=== PATIENT | female | born 1935 | race Caucasian/White ===

== ENCOUNTER 2019-06-25 04:08 | Observation (INO) ==
[2019-06-25 04:31] LABS: Basophils % 0.5 % (0.1-2.0); Eosinophils # 0.1 K/mm3 (0.0-0.4); Hematocrit 37.8 % (37.0-47.0); Hemoglobin 12.6 g/dL (12.2-16.2); Lymphocytes # 1.2 K/mm3 (0.7-4.5); Lymphocytes % 19.2 % (10-50); Mean Corpuscular HGB Conc 33.3 g/dL (31.8-35.4); Mean Corpuscular Volume 91.9 fl (81-99); Mean Platelet Volume 7.3 fl (7.4-10.4); Monocytes # 0.5 K/mm3 (0.1-1.0); Monocytes % 8.1 % (1.7-9.3); Neutrophils # 4.6 K/mm3 (1.8-7.8); Neutrophils % 71.2 % (37.0-80.0); Platelet Count 364 K/mm3 (142-424); Red Blood Count 4.12 M/mm3 (4.20-5.40); White Blood Count 6.5 K/mm3 (4.8-10.8)
[2019-06-25 04:33] LABS: Chloride 93 mmol/L (98-107)
[2019-06-25 04:34] LABS: Sodium 131 mmol/L (136-145)
[2019-06-25 04:36] LABS: Alanine Aminotransferase 27 U/L (12-78); Alkaline Phosphatase 87 U/L (38-126); Amylase 122 U/L (30-110); Anion Gap 13.1 mEq/L (5-15); Aspartate Amino Transferase 41 U/L (14-36); Bilirubin,Total 0.5 mg/dl (0.2-1.3); Blood Urea Nitrogen 11 mg/dl (7-17); Carbon Dioxide 28 mmol/L (22.0-30.0)
[2019-06-25 04:37] LABS: Albumin Level 4.5 g/dl (3.5-5.0); Albumin/Globulin Ratio 1.5 (1.1-1.8); Calcium 9.3 mg/dl (8.4-10.2); Globulin 3.1 g/dL (1.3-3.2); Glucose 160 mg/dl (74-100); Total Protein,Serum 7.6 g/dl (6.3-8.2)
[2019-06-25 04:40] LABS: Microscopic, Urine URINE MICROSCOPIC (MICROSCOPIC)
[2019-06-25 04:41] LABS: Appearance,Urine CLEAR (Clear); Bilirubin,Urine Negative (Negative); Blood, Urine Negative (Negative); Color,Urine YELLOW (Yellow); Glucose,Urine (UA) Negative (Negative); Ketones,Urine Negative (Negative); Leukocyte Esterase,Urine Negative (Negative); Protein,Urine Negative (Negative); Urobilinogen,Urine 0.2 EU/dl (0.2)
--- NOTE | 2019-06-25 05:10 | Emergency Department Note ---
ED Disposition Clinical Impression: Vertigo, Acute urinary retention Cholelithiasis Qualifiers: Cholelithiasis location: gallbladder Cholecystitis presence: without cho lecystitis Biliary obstruction: without biliary obstruction Qualified Code(s): K80.20 - Calculus of gallbladder without cholecystitis without obstruction Disposition: Admitted as Observation Condition on Discharge: Good Instructions: DI for Diarrhea and Traveler's Diarrhea -- Adult, DI for Diarrhea and Traveler's Diarrhea -- Child, DI for Nausea -- Adult, DI for Nausea -- Child Referrals: Provider,Referral, [Referring] - - Critical Care Critical Care Time: No Attestation: On 06/25/19, the high probability of a clinically significant, sudden or life threatening deterioration of the following system(s) required my full and direct attention, intervention and personal management. The time I documented below is in addition to time spent performing reported procedures but includes the following listed in this critical care notation. Medical Decision Making - Medical Records Medical records reviewed: Yes: I reviewed the patient's medical records. - Andrew Inquiry Pt receiving controlled substance: No Vital Signs: 06/25/19 04:10 06/25/19 06:41 06/25/19 06:58 Temperature 97.4 F L 97.5 F L Temperature Source Oral Oral Pulse Rate [Right Brachial] 69 69 63 Respiratory Rate 16 16 Blood Pressure [Right Arm] 159/75 H 133/68 132/61 Blood Pressure Mean [Right Arm] 103 89 84 Blood Pressure Source [Right Arm] Automatic Cuff Automatic Cuff Blood Pressure Position [Right Arm] Sitting Sitting 02 Sat by Pulse Oximetry 97 96 95 Oxygen Delivery Method Room Air Room Air 06/25/19 07:23 Temperature Temperature Source Pulse Rate [Right Brachial] 73 Respiratory Rate Blood Pressure [Right Arm] 130/67 Blood Pressure Mean [Right Arm] 88 Blood Pressure Source [Right Arm] Blood Pressure Position [Right Arm] 02 Sat by Pulse Oximetry 96 Oxygen Delivery Method - Lab Data Lab results reviewed: Yes: I reviewed the patient's lab results. Lab Results 06/25/19 04:10: WBC 6.5, RBC 4.12 L, Hgb 12.6, Hct 37.8, MCV 91.9, MCH 30.6, MCHC 33.3, RDW 14.0, Plt Count 364, MPV 7.3 L, Neut % (Auto) 71.2, Lymph % (Auto) 19.2, [place] % (Auto) 8.1, Eos % (Auto) 1.0, Baso % (Auto) 0.5, Neut # (Auto) 4.6, Lymph # (Auto) 1.2, [place] # (Auto) 0.5, Eos # (Auto) 0.1, Baso # (Auto) 0.0 06/25/19 04:10: Sodium 131 L, Potassium 3.1 L, Chloride 93 L, Carbon Dioxide 28, Anion Gap 13.1, BUN 11, Creatinine 0.50 L, Estimated Creat Clear 29, Estimated GFR 118, Est GFR ( Amer) 143, Glucose 160 H, Calcium 9.3, Total Bilirubin 0.5, AST 41 H, ALT 27, Alkaline Phosphatase 87, Troponin I < 0.01, Total Protein 7.6, Albumin 4.5, Globulin 3.1, Albumin/Globulin Ratio 1.5, Amylase 122 H, Lipase 132 06/25/19 04:10: Influenza Type A Ag Negative, Influenza Type B Ag Negative 06/25/19 04:34: Urine Color Yellow, Urine Appearance Clear, Urine pH 8.0, Ur Specific [place] 1.020, Urine Protein Negative, Urine Glucose (UA) Negative, Urine Ketones Negative, Urine Blood Negative, Urine Nitrate Negative, Urine Bilirubin Negative, Urine Urobilinogen 0.2, Ur Leukocyte Esterase Negative, Urine WBC Occasional, Ur Squamous Epith Cells 3-5, Urine Bacteria Trace Result diagrams: 06/25/19 04:10 06/25/19 04:10 Orders (Tests/Meds): ED MEDICATIONS Generic Name Dose Route Start Last Admin Trade Name Freq PRN Reason Stop Dose Admin Meclizine HCl 12.5 mg 06/25/19 09:00 Antivert 12.5mg Tablet PO 07/25/19 08:59 TID ANDER Discontinued Medications Generic Name Dose Route Start Last Admin Trade Name Freq PRN Reason Stop Dose Admin Ioversol 75 ml 06/25/19 06:05 06/25/19 06:06 Rad-Optiray 350 100ml Vial IV 06/25/19 06:06 75 ml ONCE ONE Administration Protocol Sodium Chloride 10 ml 06/25/19 06:05 06/25/19 06:06 Rad-Saline Flush 10ml Syringe IV 06/25/19 06:06 10 ml ONCE ONE Administration ORDERS Category Date Time Status Troponin I Q3H Lab 06/25/19 07:30 Ordered Troponin I Q3H Lab 06/25/19 10:30 Ordered - Radiology Data #1 Image(s): Chest Image Reviewed: Yes I reviewed the patient's radiology image Preliminary Findings: Normal/NAD - CT Data CT Scan: Head, Abdomen, Pelvis Time Received: 07:[address] Reviewed: Yes: I have viewed the radiologist's interpretation Preliminary Findings: Abnormal (see report ) - ECG Data Tracing #1 Normal Sinus Rhythm: Yes Ischemic changes: non-specific ST-T wave changes - Physician Consults Physician Consulted: dong Reason -: Admission Dizzy HPI - General Chief Complaint: Nausea/Vomiting/Diarrhea Stated Complaint: vomiting Time Seen by Provider: 06/25/19 04:15 Mode of Arrival: EMS Source of Information: Patient, Spouse, EMS, Medical Record Limitations: No Limitations Description of Symptoms (Recalled from ER Triage Doc. by RN): Patient brought in by [facility]. Patient reports she woke up around 0130 extremely nauseated and dizzy. - History of Present Illness HPI Narrative: wf sent from home per ems with acute onset of dizzyness mary with mov - assoc with n/v but no fever or viral illness - no palpitation or chest pain and no fever/rash or trauma - no focal neuro sx MD complaint: dizziness, difficulty walking Onset (ago): hour(s) Timing: awoke with symptoms Description: lightheadedness, off-balance History of similar episodes: No History of trauma: No Severity: moderate Relieving factors: remaining still Exacerbating factors: movement Associated symptoms: nausea, vomiting - Related Data Home Medications Medication Instructions Recorded Confirmed Amlodipine Besylate [Amlodipine 5 mg PO DAILY 06/25/19 06/25/19 5mg tab] Levothyroxine Sodium 50 mcg PO DAILY 06/25/19 06/25/19 [Levothyroxine 50mcg (0.05mg) Tab] Mirabegron [Myrbetriq] 50 mg PO DAILY 06/25/19 06/25/19 Potassium Chloride [Pot Chlor 10 10 meq PO BID 06/25/19 06/25/19 mEq Tab] Rosuvastatin Calcium 5 mg PO DAILY 06/25/19 06/25/19 Tobramycin/Dexamethasone 2 drp EYE-BOTH DAILY 06/25/19 06/25/19 [Tobramycin-Dexameth Ophth Susp] lisinopriL [Lisinopril 20mg Tab] 20 mg PO DAILY 06/25/19 06/25/19 Allergies Allergy/AdvReac Type Severity Reaction Status Date / Time nitrofurantoin Allergy Verified 06/25/19 04:23 [facility] History - Hepatitis A Screen Drug use history?: No High risk sexual behaviors?: No History of sexually transmitted infection?: No Currently employed?: No Childcare worker?: No Do you have indoor plumbing?: Yes Do you have electricity?: Yes Attestation statement:: This patient has been screened for Hepatitis A risk factors. I have reviewed the patient's past medical history: Yes - Social History Alcohol Intake: never Occupational Status: retired ROS Obtained: Yes All systems reviewed & no additional complaints - Constitutional Constitutional: Denies fever(s) - Eyes Eyes: Denies change in vision - ENT Ears, Nose, Mouth, and Throat: Reports dizziness, Denies sore throat - Cardiovascular Cardiovascular: Denies chest pain, Denies dyspnea - Respiratory Respiratory: No cough - Gastrointestinal Gastrointestingal: Reports: nausea, vomiting. Denies: abdominal pain, diarrhea - Genitourinary Female Genitourinary: Denies hematuria - Musculoskeletal Musculoskeletal: Denies joint swelling - Integumentary/Breasts Skin/Breast: Denies rash - Neurologic Neurologic: Reports dizziness, Denies focal weakness, Denies headache(s), Denies seizure-like activity Physical Exam - General General appearance: alert - Head Head exam: normocephalic - Eye Eye exam: Present: PERRL, EOMI. Absent: scleral icterus, nystagmus - ENT ENT exam: Present: normal oropharynx, mucous membranes dry, other (no evid of tongue biting ) - Neck Neck exam: Present: full ROM, trachea midline, other (sl bruit on lt ) - Respiratory Respiratory exam: Present: normal lung sounds bilaterally. Absent: respiratory distress - Cardiovascular Cardiovascular exam: Present: regular rate, systolic murmur, +S4 - Abdominal Exam Abdominal exam: Present: soft - Extremities Exam Extremities exam: Present: full ROM. Absent: calf tenderness - Neurological Exam Neurological exam: Present: alert, oriented X3, CN II-XII intact, other (dizzyness with mov - unable to ambulate ). Absent: motor sensory deficit - Psychiatric Psychiatric exam: Present: normal affect - Skin Skin exam: Absent: rash
[2019-06-25 05:19] LABS: Bacteria,Urine Trace /lpf; WBC,Urine Occasional #/hpf (0-3)
--- NOTE | 2019-06-25 07:59 | Pharmacy Consult Notes ---
[facility] Pharmacy VTE Monitoring - Patient Demographics Admission date: 06/25/19 Report Date: 06/25/19 Time: 07:59 Allergies/Adverse Reactions: Patient Allergies nitrofurantoin Allergy (Verified 06/25/19 04:23) Height: 1.52 m Weight: 41.73 kg Patient Problems: Current Active Problems Vertigo (Acute) Cholelithiasis (Acute) Acute urinary retention (Acute) - VTE Risk Labs: VTE Related Lab Results Hgb 12.6 g/dL (12.2-16.2) 06/25/19 04:10 Hct 37.8 % (37.0-47.0) 06/25/19 04:10 Plt Count 364 K/mm3 (142-424) 06/25/19 04:10 BUN 11 mg/dl (7-17) 06/25/19 04:10 Creatinine 0.50 mg/dl (0.52-1.04) L 06/25/19 04:10 Estimated Creat Clear 29 mL/min (50-200) 06/25/19 04:10 Clinical Trial Participant: No - Prophylaxis VTE Prophylaxis Ordered?: Yes Types of VTE Prophylaxis: TEDS Knee High
--- NOTE | 2019-06-25 12:27 | History & Physical Report ---
*Admission Date: 06/25/19 *History of present illness: 84 y.o. admitted from ER with c/o dizziness and nausea, some vomiting. Started d uring the night. In ER found to have urinary retention of 1200ml urine. Takes Myrbetriq 25mg. Also found to have hypokalemia of 3.1. Describes dizziness as the room spinning. No real prior history of this. Some hearing deficit. [facility] History Medical History: Reports:: Atrial Fibrillation, Hyperlipidemia, Hypertension Denies:: Anxiety, Arrhythmia, Cerebrovascular Accident, Diabetes Mellitus Type 1, Diabetes Mellitus Type 2 *Have you ever received a pneumonia vaccine?: Yes *Have you received a flu vaccine this season?: Yes Other Medical History: Denies: Thyroid Disease Laterality Cases: Left: Arthroscopy Hip, Right: Total Hip Replacement, Bilatera l: Tonsillectomy Other Surgeries: Yes: Appendectomy, Hysterectomy-Total (bladder suspension. Ovarian cyst 1962) - *Social History Smoking Status: Never smoker Alcohol Intake: never *Occupational Status:: retired Household Members: spouse *Travel in the last 8 weeks: None Family Hx:: Bleeding Disorder (Father and a brother with leukemia. Had 3 brothers.), Coronary Artery Disease (Mother) Review of Systems - Constitutional Denies body ache(s), Denies chills - ENT Reports abnormal hearing, Reports dizziness - *Cardiovascular Denies chest pain - *Respiratory Denies chest congestion, Denies cough - *Gastrointestinal Denies abdominal pain - *Genitourinary Reports urinary incontinence - *Neurologic Reports dizziness, Denies localized weakness, Denies headache(s), Denies seizure-like activity Meds Home Medications Medication Instructions Recorded Confirmed Type Amlodipine Besylate [Amlodipine 7.5 mg PO DAILY 06/25/19 06/25/19 History 5mg tab] Levothyroxine Sodium 50 mcg PO DAILY 06/25/19 06/25/19 History [Levothyroxine 50mcg (0.05mg) Tab] Mirabegron [Myrbetriq] 50 mg PO DAILY 06/25/19 06/25/19 History Potassium Chloride [Pot Chlor 10 10 meq PO BID 06/25/19 06/25/19 History mEq Tab] Rosuvastatin Calcium 5 mg PO DAILY 06/25/19 06/25/19 History Tobramycin/Dexamethasone 2 drp EYE-BOTH DAILY 06/25/19 06/25/19 History [Tobramycin-Dexameth Ophth Susp] lisinopriL [Lisinopril 20mg Tab] 20 mg PO DAILY 06/25/19 06/25/19 History Allergies Allergy/AdvReac Type Severity Reaction Status Date / Time nitrofurantoin Allergy Verified 06/25/19 04:23 Exam Vital signs and Labs for Last 24 Hours: Temp Pulse Resp BP Pulse Ox 97.9 F 79 18 155/72 H 97 06/25/19 08:25 06/25/19 08:25 06/25/19 08:25 06/25/19 08:25 06/25/19 08:25 Laboratory Results - last 24 hr 06/25/19 04:10: WBC 6.5, RBC 4.12 L, Hgb 12.6, Hct 37.8, MCV 91.9, MCH 30.6, MCHC 33.3, RDW 14.0, Plt Count 364, MPV 7.3 L, Neut % (Auto) 71.2, Lymph % (Auto) 19.2, [place] % (Auto) 8.1, Eos % (Auto) 1.0, Baso % (Auto) 0.5, Neut # (Auto) 4.6, Lymph # (Auto) 1.2, [place] # (Auto) 0.5, Eos # (Auto) 0.1, Baso # (Auto) 0.0 06/25/19 04:10: Sodium 131 L, Potassium 3.1 L, Chloride 93 L, Carbon Dioxide 28, Anion Gap 13.1, BUN 11, Creatinine 0.50 L, Estimated Creat Clear 29, Estimated GFR 118, Est GFR ( Amer) 143, Glucose 160 H, Calcium 9.3, Total Bilirubin 0.5, AST 41 H, ALT 27, Alkaline Phosphatase 87, Troponin I < 0.01, Total Protein 7.6, Albumin 4.5, Globulin 3.1, Albumin/Globulin Ratio 1.5, Amylase 122 H, Lipase 132 06/25/19 04:10: Influenza Type A Ag Negative, Influenza Type B Ag Negative 06/25/19 04:34: Urine Color Yellow, Urine Appearance Clear, Urine pH 8.0, Ur Specific [place] 1.020, Urine Protein Negative, Urine Glucose (UA) Negative, Ur ine Ketones Negative, Urine Blood Negative, Urine Nitrate Negative, Urine Bilirubin Negative, Urine Urobilinogen 0.2, Ur Leukocyte Esterase Negative, Urine WBC Occasional, Ur Squamous Epith Cells 3-5, Urine Bacteria Trace 06/25/19 08:40: Troponin I < 0.01 06/25/19 10:38: Troponin I < 0.01 I & O for Last 24 hours: Intake & Output 06/23/19 06/24/19 06/25/19 06/26/19 11:59 11:59 11:59 11:59 Intake Total 0 / 0 Output Total 1200 / 1200 Balance -1200 / -1200 Weight 89 lb 5 oz - Constitutional no acute distress - *Routine HEENT Exam Head: Present: normocephalic Eye: Present: nystagmus (with position change) ENT: Present: mucous membranes moist - *Routine Neck Exam Present: supple. Absent: carotid bruit - *Routine Respiratory Exam Present: CTA bilaterally (few fibrotic rales) - *Routine Cardiovascular Exam Present: RRR - *Routine Abdominal Exam Present: soft. Absent: tenderness - *Routine Extremities Exam Absent: edema - *Routine Neurological Exam Present: alert, oriented X3 Assessment and Plan (1) Vertigo Current visit: Yes Status: Acute Category: Medical Code(s): R42 - Dizzi ness and giddiness (2) Acute urinary retention Current visit: Yes Status: Acute Category: Medical Code(s): R33.8 - Other retention of urine (3) Hypokalemia Current visit: Yes Status: Acute Category: Medical Code(s): E87.6 - Hypokalemia (4) Cholelithiasis Current visit: Yes Status: Acute Qualifiers: Cholelithiasis location: gallbladder Cholecystitis presence: without cholecystitis Biliary obstruction: without biliary obstruction Qualified Code(s): K80.20 - Calculus of gallbladder without cholecystitis without obstruction Category: Medical Code(s): K80.20 - Calculus of gallbladder without cholecystitis without obstruction - Assessment and plan all Dx Assessment and Plan for all problems:: Zuleyka maneuver performed this AM in the patient's room. Nystagmus elicited. Will Rx potassium. Catheter was not left in place. Will need to make sure no continued retention. Receiving Meclizine.
--- NOTE | 2019-06-26 07:34 | Electrocardiograph Report ---
APPROVED REPORT Exam: Resting ECG HR:69 bpm ECG Measurements Heart Rate 69 AXES ID 178 P 90 QRSd 72 QRS 78 QT 418 T85 QTc 447 <Conclusion> Normal sinus rhythm Normal ECG Electronically signed by : Sina Li, 06/26/2019 07:34:18
[2019-06-26 07:49] LABS: Basophils % 0.4 % (0.1-2.0); Eosinophils # 0.1 K/mm3 (0.0-0.4); Eosinophils % 0.5 % (0.1-12.0); Hematocrit 39.4 % (37.0-47.0); Hemoglobin 12.8 g/dL (12.2-16.2); Lymphocytes # 1.7 K/mm3 (0.7-4.5); Lymphocytes % 17.8 % (10-50); Mean Corpuscular HGB Conc 32.4 g/dL (31.8-35.4); Mean Corpuscular Volume 94.2 fl (81-99); Mean Platelet Volume 7.6 fl (7.4-10.4); Monocytes # 0.7 K/mm3 (0.1-1.0); Monocytes % 7.6 % (1.7-9.3); Neutrophils # 7.1 K/mm3 (1.8-7.8); Neutrophils % 73.7 % (37.0-80.0); Platelet Count 376 K/mm3 (142-424); Red Blood Count 4.18 M/mm3 (4.20-5.40); Red Cell Distribution Width 14.2 % (11.5-17.5); White Blood Count 9.6 K/mm3 (4.8-10.8)
[2019-06-26 08:02] LABS: Anion Gap 12.3 mEq/L (5-15); Calcium 9.4 mg/dl (8.4-10.2)
--- NOTE | 2019-06-26 09:41 | Progress Note ---
Internal Medicine - PN: Subj *Date: 06/26/19 *Time: 09:40 Interval history: She reports that she may still have episodes of dizziness. Her leg cramps have resolved with her improved potassium. See labs. Exam Vital signs and Labs for Last 24 Hours: Temp Pulse Resp BP Pulse Ox 97.9 F 78 17 110/55 L 96 06/26/19 08:00 06/26/19 08:00 06/26/19 08:00 06/26/19 08:00 06/26/19 08:00 Laboratory Results - last 24 hr 06/25/19 10:38: Troponin I < 0.01 06/26/19 07:30: WBC 9.6 D, RBC 4.18 L, Hgb 12.8, Hct 39.4, MCV 94.2, MCH 30.5, MCHC 32.4, RDW 14.2, Plt Count 376, MPV 7.6, Neut % (Auto) 73.7, Lymph % (Auto) 17.8, [place] % (Auto) 7.6, Eos % (Auto) 0.5, Baso % (Auto) 0.4, Neut # (Auto) 7.1, Lymph # (Auto) 1.7, [place] # (Auto) 0.7, Eos # (Auto) 0.1, Baso # (Auto) 0.0 06/26/19 07:30: Sodium 133 L, Potassium 4.3 D, Chloride 100, Carbon Dioxide 25, Anion Gap 12.3, BUN 8 D, Creatinine 0.60, Estimated Creat Clear 28, Estimated GFR 96, Est GFR ( Amer) 116, Glucose 102 H, Calcium 9.4, Magnesium 1.9 I & O for Last 24 hours: Intake & Output 06/23/19 06/24/19 06/25/19 06/26/19 11:59 11:59 11:59 11:59 Intake Total 0 / 0 1253 / 1253 Output Total 1200 / 1200 1320 / 1320 Balance -1200 / -1200 -67 / -67 Weight 89 lb 5 oz 89 lb 2 oz - Constitutional no acute distress - *Routine HEENT Exam Eye: Present: PERRL. Absent: nystagmus ENT: Present: mucous membranes moist - *Routine Neck Exam Absent: carotid bruit - *Routine Respiratory Exam Present: CTA bilaterally - *Routine Cardiovascular Exam Present: RRR - *Routine Abdominal Exam Present: soft. Absent: tenderness - *Routine Extremities Exam Absent: edema Assessment and Plan (1) Vertigo Current visit: Yes Status: Acute Category: Medical Code(s): R42 - Dizziness and giddiness (2) Acute urinary retention Current visit: Yes Status: Acute Category: Medical Code(s): R33.8 - Other retention of urine (3) Hypokalemia Current visit: Yes Status: Acute Category: Medical Code(s): E87.6 - Hypokalemia (4) Cholelithiasis Current visit: Yes Status: Acute Qualifiers: Cholelithiasis location: gallbladder Cholecystitis presence: without cholecystitis Biliary obstruction: without biliary obstruction Qualified Code(s): K80.20 - Calculus of gallbladder without cholecystitis without obstruction Category: Medical Code(s): K80.20 - Calculus of gallbladder without cholecystitis without obstruction - Assessment and plan all Dx Assessment and Plan for all problems:: Carotid ultrasound will be obtained. We have not checked TSH yet.
[2019-06-27 08:08] LABS: Anion Gap 13.1 mEq/L (5-15); Calcium 9.2 mg/dl (8.4-10.2)
[2019-06-27 11:49] VITALS: BP 135/63
--- NOTE | 2019-06-27 12:57 | Progress Note ---
Internal Medicine - PN: Subj *Date: 06/27/19 *Time: 12:54 Interval history: She is well, not dizzy, but feels uncertain about going home. Exam Vital signs and Labs for Last 24 Hours: Temp Pulse Resp BP Pulse Ox 97.7 F 86 16 135/63 95 06/27/19 11:43 06/27/19 11:43 06/27/19 11:43 06/27/19 11:43 06/27/19 11:43 Laboratory Results - last 24 hr 06/27/19 07:50: Sodium 134 L, Potassium 4.1, Chloride 99, Carbon Dioxide 26, Anion Gap 13.1, BUN 8, Creatinine 0.50 L, Estimated Creat Clear 28, Estimated GFR 118, Est GFR ( Amer) 143 D, Glucose 104 H, Calcium 9.2 I & O for Last 24 hours: Intake & Output 06/25/19 06/26/19 06/27/19 06/28/19 11:59 11:59 11:59 11:59 Intake Total 0 / 0 1253 / 1253 1730 / 1730 Output Total 1200 / 1200 2220 / 2220 1300 / 1300 Balance -1200 / -1200 -967 / -967 430 / 430 Weight 89 lb 5 oz 89 lb 2 oz 89 lb 5 oz - Constitutional no acute distress - *Routine HEENT Exam Eye: Present: PERRL. Absent: nystagmus ENT: Present: mucous membranes moist - *Routine Respiratory Exam Present: CTA bilaterally - *Routine Cardiovascular Exam Present: RRR - *Routine Abdominal Exam Present: soft. Absent: tenderness - *Routine Extremities Exam Present: extremity cold to touch. Absent: edema Assessment and Plan (1) Vertigo Current visit: Yes Status: Acute Category: Medical Code(s): R42 - Dizziness and giddiness (2) Acute urinary retention Current visit: Yes Status: Acute Category: Medical Code(s): R33.8 - Other retention of urine (3) Hypokalemia Current visit: Yes Status: Acute Category: Medical Code(s): E87.6 - Hypokalemia (4) Cholelithiasis Current visit: Yes Status: Acute Qualifiers: Cholelithiasis location: gallbladder Cholecystitis presence: without cholecystitis Biliary obstruction: without biliary obstruction Qualified Code(s): K80.20 - Calculus of gallbladder without cholecystitis without obstruction Category: Medical Code(s): K80.20 - Calculus of gallbladder without cholecystitis without obstruction - Assessment and plan all Dx Assessment and Plan for all problems:: Will discharge. Home Health visits will be arranged.
--- NOTE | 2019-06-27 16:39 | Cardiology Report ---
APPROVED REPORT Medical Appointment Clerk: Meredith Vázquez RVT Laterality: Bilateral Study Quality: Good Indications: dizziness Risk Factors Hypertension: Doppler Spectral Velocity Analysis ECA (R) 62.90/0.50 cm/sECA (L) 59.50/0.40 cm/s dICA (R) 85.90/16.00 cm/sdICA (L) 64.70/12.40 cm/s Nori (R) 83.50/11.60 cm/smICA (L) 58.30/9.60 cm/s pICA (R) 50.10/9.00 cm/spICA (L) 35.10/6.20 cm/s dCCA (R) 74.60/8.00 cm/sdCCA (L) 64.90/8.40 cm/s pCCA (R) 95.90/8.60 cm/spCCA (L) 67.20/7.30 cm/s Vert (R) 42.50/5.00 cm/sVert (L) 39.90/4.00 cm/s ICA/CCA 1.15 ICA/CCA 1.00 Conclusion Study suggests 20-49% stenosis of the right internal cartoid artery. Study suggests less than 20% stenosis of the left internal cartoid artery. Antegrade flow seen bilateral vertebral arteries. Electronically signed by : Gurdeep Monsalve MD 06/26/2019 16:54:50
--- NOTE | 2019-06-29 22:12 | Discharge Summary ---
General - General Admission date:: 06/25/19 Discharge date: 06/27/19 HPI HPI: 84 y.o. admitted from ER with c/o dizziness and nausea, some vomiting. Started during the night. In ER found to have urinary retention of 1200ml urine. Takes Myrbetriq 25mg. Also found to have hypokalemia of 3.1. Describes dizziness as the room spinning. No real prior history of this. Some hearing deficit. Hospital Course Hospital Course: The patient had an abdominal and pelvic CT showing a distended gallbladder with cholelithiasis and a distended urinary bladder with mild ectasias of the renal collecting system. It also showed some constipation. She had a chest x-ray showing nothing acute. She had a head CT showing nothing acute. 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 The patient was admitted and Zuleyka's maneuver was performed in the patient's room. Nystagmus was elicited. Patient was started on some meclizine for the vertigo and also potassium due to hypokalemia. The patient had a catheter placed in the emergency room with good urinary output, but it was not left in place. She was monitored for continued renal urinary retention. She had a carotid duplex showing 20 to 49% stenosis on the right and 20% stenosis on the left. Her leg cramps did resolve as potassium improved. She still had some episodes of dizziness. Her dizziness finally resolved and she was stable to be discharged home with home health. Objective Vital signs: Temp Pulse Resp BP Pulse Ox 97.7 F 86 16 135/63 95 06/27/19 11:43 06/27/19 11:43 06/27/19 11:43 06/27/19 11:43 06/27/19 11:43 Narrative: - Constitutional no acute distress - *Routine HEENT Exam Head: Present: normocephalic Eye: Present: nystagmus (with position change) ENT: Present: mucous membranes moist - *Routine Neck Exam Present: supple. Absent: carotid bruit - *Routine Respiratory Exam Present: CTA bilaterally (few fibrotic rales) - *Routine Cardiovascular Exam Present: RRR - *Routine Abdominal Exam Present: soft. Absent: tenderness - *Routine Extremities Exam Absent: edema - *Routine Neurological Exam Present: alert, oriented X3 DS: Diagnosis - Discharge Diagnosis (1) Vertigo Status: Acute (2) Acute urinary retention Status: Acute (3) Hypokalemia Status: Acute (4) Cholelithiasis Status: Acute Discharge Plan - Patient Discharge Instructions Patient Instructions: Vertigo, Gallstones, DI for Gallstones, DI for Vertigo, DI for Hypokalemia, DI for Urinary Retention in Women, Hypokalemia - Follow up Plan Disposition: Home Health Service Home Medications: Home Medications Medication Instructions Recorded Confirmed Type Levothyroxine Sodium 50 mcg PO DAILY 06/25/19 06/25/19 History [Levothyroxine 50mcg (0.05mg) Tab] Mirabegron [Myrbetriq] 50 mg PO DAILY 06/25/19 06/25/19 History Potassium Chloride [Pot Chlor 10 10 meq PO BID 06/25/19 06/25/19 History mEq Tab] Rosuvastatin Calcium 5 mg PO DAILY 06/25/19 06/25/19 History Tobramycin/Dexamethasone 2 drp EYE-BOTH DAILY 06/25/19 06/25/19 History [Tobramycin-Dexameth Ophth Susp] lisinopriL [Lisinopril 20mg Tab] 20 mg PO DAILY 06/25/19 06/25/19 History Amlodipine Besylate [Norvasc 2.5mg 2.5 mg PO DAILY #30 tab 06/27/19 Rx tablet] Meclizine HCl [Antivert 12.5mg 12.5 mg PO TID #90 tab 06/27/19 Rx tablet] Prescriptions/Medication Reconciliation: New Meclizine HCl [Antivert 12.5mg tablet] 12.5 mg PO TID #90 tab Amlodipine Besylate [Norvasc 2.5mg tablet] 2.5 mg PO DAILY #30 tab Continued Tobramycin/Dexamethasone [Tobramycin-Dexameth Ophth Susp] 2 drp EYE-BOTH DAILY Potassium Chloride [Pot Chlor 10 mEq Tab] 10 meq PO BID Mirabegron [Myrbetriq] 50 mg PO DAILY Levothyroxine Sodium [Levothyroxine 50mcg (0.05mg) Tab] 50 mcg PO DAILY Rosuvastatin Calcium 5 mg PO DAILY lisinopriL [Lisinopril 20mg Tab] 20 mg PO DAILY Discontinued Amlodipine Besylate [Amlodipine 5mg tab] 7.5 mg PO DAILY - Problem Reconciliation Problems Reviewed?: Yes
== END 2019-06-27 14:28 | disposition home health service (06) ==
LOC: ER 04:08 → 2ND 04:08
PROVIDERS: ADMIT Family Medicine; ATTEND Family Medicine
CPT/HCPCS: 36415; 70450; 71010; 71045; 74177; 80048; 80053; 81001; 82150; 83690; 83735; 84443; 84484; 85025; 87275; 87276; 93005; 93880; 97161; 99285; G0378; J2405; Q9967

== ENCOUNTER 2020-11-25 07:33 | Emergency (ER) | payer MEDICARE, SELFPAY ==
[2020-11-25 07:33] VITALS: BP 171/87; PULSE 89; RESP 16; TEMP 36.7; O2SAT 98; BMI 18.3
--- NOTE | 2020-11-25 07:54 | XR_ITS ---
PROCEDURE: XR HIP LT 2-3V W/PELVIS CLINICAL INDICATION: Fall/ Hip Pain COMPARISON: No exams were available for comparison FINDINGS: Status post left hip bipolar prosthesis placement. No acute fracture or dislocation. The prosthesis is in good position. IMPRESSION: No acute findings. Dictated by: Gurdeep Monsalve MD 11/25/2020 08:39 Gurdeep Monsalve MD in [place] 11/25/2020 08:39
--- NOTE | 2020-11-25 07:54 | CT_ITS ---
PROCEDURE: CT LUMBAR SPINE WO CON CLINICAL HISTORY: fall, lower back pain COMPARISON: No exams were available for comparison TECHNIQUE: Axial images obtained with sagittal and coronal reformats. All CT scans at the facility use one or more dose reduction, viz: automated exposure control, ma/kV adjustment per patient size (including targeted exams where dose is matched to indication, i.e. head), or iterative reconstruction technique. FINDINGS: There is generalized osteopenia. There is normal alignment. No acute fracture or dislocation is apparent. There is mild lumbar curvature convex right minimal bulging disc is present at L5-S1 with facet hypertrophic changes. Ligamentum flavum calcification noted at L3-L4. IMPRESSION: No acute finding Dictated by: Gurdeep Monsalve MD 11/25/2020 08:37 Gurdeep Monsalve MD in [place] 11/25/2020 08:37
[2020-11-25 08:00] VITALS: BP 155/76; PULSE 87; O2SAT 96
--- NOTE | 2020-11-25 08:06 | XR_ITS ---
PROCEDURE: XR HIP RT 2-3V W/PELVIS CLINICAL INDICATION: PAIN COMPARISON: No exams were available for comparison FINDINGS: Prior right hip pinning with [address] extending from the base of the greater trochanter to the femoral head region. No acute fracture or dislocation apparent. IMPRESSION: No acute findings. Dictated by: Gurdeep Monsalve MD 11/25/2020 08:38 Gurdeep Monsalve MD in [place] 11/25/2020 08:38
--- NOTE | 2020-11-25 08:07 | PC.NURSE ---
SYLVIE HICKS at
--- NOTE | 2020-11-25 08:08 | PC.NURSE ---
amna notified of orders on pt, spoke with shamir
--- NOTE | 2020-11-25 08:14 | HMH.EDFALL ---
ED Disposition Clinical Impression: Low back pain Qualifiers: Chronicity: acute Back pain laterality: bilateral Sciatica presence: without sciatica Qualified Code(s): M54.5 - Low back pain Fall Qualifiers: Encounter type: initial encounter Qualified Code(s): W19.XXXA - Unspecified fall, initial encounter Disposition: Home, Self-Care Condition on Discharge: Good Instructions: DI for Musculoskeletal Pain Referrals: Cassandra Lara [Primary Care Provider] - 11/26/20 - Critical Care Critical Care Time: No Attestation: On 11/25/20, the high probability of a clinically significant, sudden or life threatening deterioration of the following system(s) required my full and direct attention, intervention and personal management. The time I documented below is in addition to time spent performing reported procedures but includes the following listed in this critical care notation. Medical Decision Making - Medical Records Medical records reviewed: Yes: I reviewed the patient's medical records. - Andrew Inquiry Pt receiving controlled substance: No Vital Signs: 11/25/20 07:33 11/25/20 08:00 Temperature 98.0 F Temperature Source Oral Pulse Rate 87 Pulse Rate [Right] 89 Respiratory Rate 16 Blood Pressure 155/76 H Blood Pressure [Right Arm] 171/87 H Blood Pressure Mean 103 Blood Pressure Mean [Right Arm] 115 02 Sat by Pulse Oximetry 98 96 Oxygen Delivery Method Room Air Room Air - Radiology Data #1 Image(s): Hip Image Reviewed: Yes I reviewed the patient's radiology results Bilateral hip x-ray show no acute fracture or dislocation - CT Data CT Scan: L-Spine Time Received: 08:[address] Reviewed: Yes: I have reviewed the patient's CT results Medical Decision Narrative: Patient with fall earlier in the week and fall apparently last night that sounds mechanical in nature. Patient denies any other associated symptoms. Bilateral hip films and CT of the lumbar spine showed no acute fracture dislocation. Given Toradol here and discharged home with advised to follow-up with PCP for further management in the next 1-2 days. Physical therapy may be beneficial. Tylenol for pain control. Fall HPI - General Chief Complaint: Fall Stated Complaint: Fall, Hip pain Time Seen by Provider: 11/25/20 08:14 Mode of Arrival: EMS Limitations: No Limitations Description of Symptoms (Recalled from ER Triage Doc. by RN): EMS reports they were called out due to bilateral hip pain. EMS reports they picked patient up off the floor at 0300 this AM after a fall w/o LOC and at the time patient refused EMS transport to hospital. Patient called EMS back due to worsening bilateral hip pain and lower back pain. Patient denies hitting head, patient denies neck pain. - History of Present Illness HPI Narrative: This is an 85-year-old female with a past medical history significant for hypertension, atrial fibrillation, hyperlipidemia who presents to the emergency department for evaluation of lower back pain after a fall at 3 AM. Patient states that she states her feet got in the way . She also reports a fall about 4 days ago earlier in the week for the same problem. No associated chest pain, shortness of breath, dizziness and she has no subsequent lateralizing motor or sensory changes. Pain in the lower back is constant, does not seem to change with movement. She denies hitting her head, no neck pain. She does not take any blood thinners. She has been trying Tylenol with no persistent relief of symptoms. - Related Data Home Medications Medication Instructions Recorded Confirmed Levothyroxine Sodium 50 mcg PO DAILY 06/25/19 06/25/19 [Levothyroxine 50mcg (0.05mg) Tab] Mirabegron [Myrbetriq] 50 mg PO DAILY 06/25/19 06/25/19 Potassium Chloride [Pot Chlor 10 10 meq PO BID 06/25/19 06/25/19 mEq Tab] Rosuvastatin Calcium 5 mg PO DAILY 06/25/19 06/25/19 Tobramycin/Dexamethasone 2 drp EYE-BOTH DAILY 06/25/19 06/25/19 [To
--- NOTE | 2020-11-25 08:33 | PC.NURSE ---
pt return from rad
[2020-11-25 08:56] VITALS: BP 131/59; PULSE 85; RESP 16; O2SAT 94
[2020-11-25 09:00] VITALS: BP 137/69; PULSE 88; RESP 18; O2SAT 96
--- NOTE | 2020-11-25 09:00 | PC.NURSE ---
Caalled Daughter about patient to be discharged, no answer, left voicemail to call ER
--- NOTE | 2020-11-25 09:08 | PC.NURSE ---
called advised of pt discharge and said he would be here as soon as possible.
[2020-11-25 09:30] VITALS: BP 127/64; PULSE 84; RESP 18; O2SAT 94
[2020-11-25 10:13] VITALS: BP 127/54; PULSE 84; RESP 18; TEMP 36.8; O2SAT 96
== END 2020-11-25 09:57 | disposition home or self-care (01) ==
PROVIDERS: Emergency Provider Emergency Medicine; PCP Family Medicine
DX: M54.5 Low back pain (principal); M25.551 Pain in right hip; M25.552 Pain in left hip; I48.20 Chronic atrial fibrillation, unspecified; I10 Essential (primary) hypertension; E78.5 Hyperlipidemia, unspecified; Z79.899 Other long term (current) drug therapy; W01.0XXA Fall on same level from slipping, tripping and stumbling without subsequent striking against object, initial encounter; Y92.019 Unspecified place in single-family (private) house as the place of occurrence of the external cause
CPT/HCPCS: 72131; 73502; 99282

== ENCOUNTER 2020-11-26 16:10 | Inpatient (IN) | payer MEDICARE, SELFPAY ==
[2020-11-26 16:11] VITALS: BP 174/92; PULSE 95; RESP 18; TEMP 36.7; O2SAT 93; BMI 17.6
--- NOTE | 2020-11-26 16:31 | HMH.EDGENADL ---
ED Disposition Clinical Impression: Hyponatremia Disposition: Admitted as Observation Condition on Discharge: Good - Critical Care Critical Care Time: No Attestation: On 11/26/20, the high probability of a clinically significant, sudden or life threatening deterioration of the following system(s) required my full and direct attention, intervention and personal management. The time I documented below is in addition to time spent performing reported procedures but includes the following listed in this critical care notation. Medical Decision Making - Medical Records Medical records reviewed: Yes: I reviewed the patient's medical records. - Andrew Inquiry Pt receiving controlled substance: No Vital Signs: 11/26/20 16:11 Temperature 98.0 F Temperature Source Oral Pulse Rate [Right Radial] 95 H Respiratory Rate 18 Blood Pressure [Right Arm] 174/92 H Blood Pressure Mean [Right Arm] 119 Blood Pressure Source [Right Arm] Automatic Cuff Blood Pressure Position [Right Arm] Supine 02 Sat by Pulse Oximetry 93 L Oxygen Delivery Method Room Air - Lab Data Lab Results 11/26/20 18:00: WBC 8.7, RBC 3.56 L, Hgb 10.2 L, Hct 30.2 L, MCV 84.7, MCH 28.7, MCHC 33.9, RDW 15.3, Plt Count 368, MPV 8.4, Neut % (Auto) 89.9 H, Lymph % (Auto) 4.3 L, [place] % (Auto) 5.6, Eos % (Auto) 0.1, Baso % (Auto) 0.2, Neut # (Auto) 7.9 H, Lymph # (Auto) 0.4 L, [place] # (Auto) 0.5, Eos # (Auto) 0.0, Baso # (Auto) 0.0 11/26/20 18:00: Sodium 125 L, Potassium 3.1 L, Chloride 91 L, Carbon Dioxide 24, Anion Gap 13.1, BUN 12, Creatinine 0.40 L, Estimated Creat Clear 27, Estimated GFR 152, Est GFR ( Amer) 184, Glucose 104 H, Calcium 7.8 L, Magnesium 1.5 L, TSH 1.69 Result diagrams: 11/26/20 18:00 11/26/20 18:00 Orders (Tests/Meds): ED MEDICATIONS Generic Name Dose Route Start Last Admin Trade Name Freq PRN Reason Stop Dose Admin Acetaminophen 650 mg 11/26/20 18:53 Acetaminophen 325mg Tab PO 12/26/20 18:52 Q4HP PRN Fever or Mild Pain Sodium Chloride 1,000 mls @ 125 mls/hr 11/26/20 18:45 11/26/20 18:48 Sod Chlor 0.9% 1000ml Bag IV 12/26/20 18:44 125 mls/hr .Q8H ANDER Administration Potassium Chloride/Water 100 mls @ 100 mls/hr 11/26/20 18:41 Potassium Chloride 10meq/100ml Ivpb IV 11/26/20 19:40 ONCE ONE Metronidazole 500 mg in 100 mls @ 100 mls/hr 11/26/20 18:56 Flagyl 500mg/100ml Ivpb IV 11/26/20 19:55 ONCE ONE Ondansetron HCl 4 mg 11/26/20 18:53 Ondansetron 4mg/2ml Vial IV 12/26/20 18:52 Q8HP PRN Nausea Pantoprazole Sodium 40 mg 11/27/20 09:00 Pantoprazole 40mg Tablet PO 12/27/20 08:59 DAILY ANDER Discontinued Medications Generic Name Dose Route Start Last Admin Trade Name Freq PRN Reason Stop Dose Admin Fentanyl Citrate 50 mcg 11/26/20 17:26 11/26/20 17:49 Fentanyl 100mcg/2ml Vial IV 11/26/20 17:27 50 mcg ONCE ONE Administration Magnesium Sulfate 1 gm/ Sodium 52 mls @ 100 mls/hr 11/26/20 18:41 11/26/20 18:48 Chloride IV 11/26/20 19:12 100 mls/hr ONCE ONE Administration ORDERS Category Date Time Status Complete Blood Count Auto Diff AMLAB Lab 11/27/20 06:00 Ordered Complete Blood Count Auto Diff Stat Lab 11/26/20 18:00 Results Comprehensive Metabolic Panel AMLAB Lab 11/27/20 06:00 Ordered Diarrhea 23 Panel, PCR Stat Lab 11/26/20 18:57 Ordered Lipid Panel AMLAB Lab 11/27/20 06:00 Ordered Magnesium AMLAB Lab 11/27/20 06:00 Ordered Phosphorous AMLAB Lab 11/27/20 06:00 Ordered Rapid PCR Covid and Flu A/B Stat Lab 11/26/20 19:00 Received Medical Decision Narrative: 85-year-old female presents after fall as above. She is awake and alert at this time without findings on primary survey. She does have skin tears however no evidence of fractures. Plan to obtain laboratory evaluation it appears to be a mechanical fall however will assess for metabolic conditions as well. Patient has hyponatremia hypokalemia hyp
--- NOTE | 2020-11-26 16:35 | XR_ITS ---
PROCEDURE: XR PELVIS 1-2V CLINICAL INDICATION: trauma fall from standing COMPARISON: CR XR HIP LT 2-3V W/PELVIS from 11/25/2020 TECHNIQUE: XR Pelvis AP View FINDINGS: Status post right hip pinning. Left hip bipolar prosthesis present. No acute fracture or dislocation. No lytic or blastic change. IMPRESSION: No acute findings. Dictated by: Gurdeep Monsalve MD 11/26/2020 16:57 Gurdeep Monsalve MD in [place] 11/26/2020 16:57
--- NOTE | 2020-11-26 16:35 | XR_ITS ---
PROCEDURE: XR CHEST PORTABLE CLINICAL HISTORY: trauma fall from standing COMPARISON: CR XR CHEST PORTABLE from 06/25/2019 FINDINGS: The cardiomediastinal silhouette and pulmonary vascularity are within normal limits. The lungs are clear without infiltrates, suspicious nodules, or pleural effusions. No acute bony abnormalities. IMPRESSION: No acute findings. Dictated by: Gurdeep Monsalve MD 11/26/2020 16:56 Gurdeep Monsalve MD in [place] 11/26/2020 16:56
[2020-11-26 18:13] LABS: Basophils % 0.2 % (0.1-2.0); Eosinophils % 0.1 % (0.1-12.0); Hematocrit 30.2 % (37.0-47.0); Hemoglobin 10.2 g/dL (12.2-16.2); Lymphocytes # 0.4 K/mm3 (0.7-4.5); Lymphocytes % 4.3 % (10-50); Mean Corpuscular HGB Conc 33.9 g/dL (31.8-35.4); Mean Corpuscular Hemoglobin 28.7 pg (27.0-31.2); Mean Corpuscular Volume 84.7 fl (81-99); Mean Platelet Volume 8.4 fl (7.4-10.4); Monocytes # 0.5 K/mm3 (0.1-1.0); Monocytes % 5.6 % (1.7-9.3); Neutrophils # 7.9 K/mm3 (1.8-7.8); Neutrophils % 89.9 % (37.0-80.0); Platelet Count 368 K/mm3 (142-424); Red Blood Count 3.56 M/mm3 (4.20-5.40); Red Cell Distribution Width 15.3 % (11.5-17.5); White Blood Count 8.7 K/mm3 (4.8-10.8)
[2020-11-26 18:22] LABS: Anion Gap 13.1 mEq/L (5-15); Blood Urea Nitrogen 12 mg/dl (7-17); Calcium 7.8 mg/dl (8.4-10.2); Carbon Dioxide 24 mmol/L (22.0-30.0); Chloride 91 mmol/L (98-107); Creatinine Clearance Estimated 27 mL/min (50-200); Estimated Glomerular Filt Rate 152 ml/min (>60); GFR (African American) 184 ML/MIN (>60); Glucose 104 mg/dl (74-100); Magnesium 1.5 mg/dl (1.6-2.3); Potassium 3.1 mmoL/L (3.5-5.1); Sodium 125 mmol/L (136-145)
[2020-11-26 18:24] LABS: MANUAL DIFFERENTIAL MANUAL DIFFERENTIAL (MANUAL DIFF)
--- NOTE | 2020-11-26 18:37 | ECG_ITS ---
APPROVED REPORT Exam: Resting ECG HR:87 bpm ECG Measurements Heart Rate 87 AXES MN 150 P 82 QRSd 50 QRS 61 QT 356 T 77 QTc 428 Conclusion Normal sinus rhythm Low voltage QRS Septal infarct, age undetermined Abnormal ECG Electronically signed by : Sina Li MD 11/28/2020 09:01:53
[2020-11-26 18:53] LABS: Thyroid Stimulating Hormone 1.69 uIU/mL (0.465-4.68)
--- NOTE | 2020-11-26 18:54 | PC.NURSE ---
spoke with Dr Pablo who agreed to admission
[2020-11-26 19:00] VITALS: BP 144/72; PULSE 87; O2SAT 93
[2020-11-26 19:06] LABS: Influenza A, PCR Not Detected (NotDetected); Influenza B, PCR Not Detected (NotDetected)
[2020-11-26 19:19] LABS: Eosinophils % 1 % (0-3); Lymphocytes % 5 % (10-50); Monocytes % 2 % (2-9); Neutrophils % 90 % (42-76); Total Cells Counted 100
[2020-11-26 19:20] LABS: Hypersegmented Neutrophils 1+; Platelet Estimate Normal
[2020-11-26 20:00] VITALS: BP 160/79; PULSE 87; RESP 17; O2SAT 96
[2020-11-26 20:04] VITALS: BMI 17.6
[2020-11-26 20:07] LABS: Coronavirus 19, PCR Detected (NotDetected)
[2020-11-26 21:00] VITALS: BP 149/97; PULSE 85; RESP 16; TEMP 36.9; O2SAT 94
[2020-11-26 21:45] VITALS: BP 158/66; PULSE 66; RESP 18; TEMP 36.7; O2SAT 98
--- NOTE | 2020-11-26 22:02 | PC.NURSE ---
patient arrived to unit [id number]
[2020-11-26 22:31] LABS: Appearance,Urine CLEAR (Clear); Bilirubin,Urine Negative (Negative); Blood, Urine 1+ (Negative); Color,Urine YELLOW (Yellow); Glucose,Urine (UA) Negative (Negative); Ketones,Urine 1+ (Negative); Leukocyte Esterase,Urine Negative (Negative); Microscopic, Urine URINE MICROSCOPIC (MICROSCOPIC); Nitrate,Urine Negative (Negative); Protein,Urine Negative (Negative); Urobilinogen,Urine 0.2 EU/dl (0.2)
[2020-11-26 22:35] LABS: WBC,Urine Occasional #/hpf (0-3)
[2020-11-27 00:40] VITALS: BP 151/63; PULSE 77; RESP 18; TEMP 36.7
[2020-11-27 04:00] VITALS: BP 120/63; PULSE 87; RESP 18; TEMP 36.8; O2SAT 96
[2020-11-27 06:32] LABS: Basophils % 0.3 % (0.1-2.0); Eosinophils % 0.1 % (0.1-12.0); Hemoglobin 9.5 g/dL (12.2-16.2); Lymphocytes # 0.8 K/mm3 (0.7-4.5); Lymphocytes % 16.1 % (10-50); Mean Corpuscular Hemoglobin 28.7 pg (27.0-31.2); Mean Platelet Volume 7.4 fl (7.4-10.4); Monocytes # 0.5 K/mm3 (0.1-1.0); Monocytes % 10.5 % (1.7-9.3); Neutrophils # 3.8 K/mm3 (1.8-7.8); Neutrophils % 72.9 % (37.0-80.0); Platelet Count 350 K/mm3 (142-424); Red Blood Count 3.31 M/mm3 (4.20-5.40); Red Cell Distribution Width 15.5 % (11.5-17.5); White Blood Count 5.2 K/mm3 (4.8-10.8)
[2020-11-27 06:35] LABS: Hematocrit 28.8 % (37.0-47.0)
--- NOTE | 2020-11-27 06:42 | PC.NURSE ---
patient has had an uneventful night; no s/s of acute distress noted, call light in reach, bed at lowest level for safety; will continue to monitor.
[2020-11-27 06:43] LABS: Chloride 97 mmol/L (98-107); Sodium 130 mmol/L (136-145)
[2020-11-27 06:46] LABS: Alanine Aminotransferase 15 U/L (12-78); Albumin Level 3.2 g/dl (3.5-5.0); Albumin/Globulin Ratio 1.2 (1.1-1.8); Alkaline Phosphatase 101 U/L (38-126); Anion Gap 9.8 mEq/L (5-15); Aspartate Amino Transferase 38 U/L (14-36); Bilirubin,Total 0.3 mg/dl (0.2-1.3); Blood Urea Nitrogen 4 mg/dl (7-17); Calcium 7.4 mg/dl (8.4-10.2); Carbon Dioxide 26 mmol/L (22.0-30.0); Cholesterol 166 mg/dl (140-200); Creatinine Clearance Estimated 27 mL/min (50-200); Estimated Glomerular Filt Rate 152 ml/min (>60); GFR (African American) 184 ML/MIN (>60); Globulin 2.7 g/dL (1.3-3.2); Glucose 89 mg/dl (74-100); Phosphorous 2.4 mg/dl (2.5-4.5); Total Protein,Serum 5.9 g/dl (6.3-8.2); Triglycerides 78 mg/dl (30-150); VLDL Cholesterol 16 mg/dL (0-40)
[2020-11-27 06:47] LABS: Chol/HDL Ratio 2.6 (1-3.5); HDL Cholesterol 63 mg/dl (40-60); Magnesium 1.6 mg/dl (1.6-2.3)
[2020-11-27 06:52] LABS: Potassium 2.8 mmoL/L (3.5-5.1)
[2020-11-27 08:00] VITALS: BP 144/74; PULSE 82; RESP 19; TEMP 36.9; O2SAT 95; O2SAT 97
--- NOTE | 2020-11-27 09:20 | HMH.HP ---
*Admission Date: 11/26/20 *Chief complaint: Fell at home *History of present illness: Ms. Méndez is an 85 year old patient of Dr. Lara in [place], who was brought to [facility] ER last night after falling at home. Patient states she went to the bathroom to have a bowel movement and fell down and could not get up and EMS was called to bring her to the ER. Patient his and states that this was the second day in a row that she had fallen at home and been brought to the ER for evaluation. He states she has a history of fluid on her brain . He also states that she fell coming out of a restaurant 2 months ago and sustained a left hip fracture. At that time, she was taken to [facility] in [place] and had a total left hip replacement and spent some time in the half-way afterwards for rehab. He states she has a history of vertigo but has not had any recent problems with dizziness. [facility] History Medical History: Reports:: Arrhythmia, Atrial Fibrillation, Hyperlipidemia, Hypertension Denies:: Anxiety, Cancer, Cerebrovascular Accident, Diabetes Mellitus Type 1, Diabetes Mellitus Type 2, MRSA *Have you ever received a pneumonia vaccine?: No *Have you received a flu vaccine this season?: No Other Medical History: Reports: Anemia, Arthritis. Denies: Thyroid Disease Comment:: Left hip fracture September 2020, Vertigo Laterality Cases: Left: Arthroscopy Hip, Right: Total Hip Replacement, Bilateral: Tonsillectomy Other Surgeries: Yes: Appendectomy, Hysterectomy-Total (bladder suspension. Ovarian cyst 1962) Amputation: No - *Social History Smoking Status: Never smoker Alcohol Intake: never *Occupational Status:: retired Housing: house Household Members: spouse *Travel in the last 8 weeks: None - Psychiatric History Pschychiatric History:: Denies:: Anxiety Family Hx:: No significant family history Review of Systems - Constitutional Denies fever(s) - Eyes Denies change in vision - ENT Reports nasal congestion (x 3 days) - *Cardiovascular Denies chest pain - *Respiratory Reports cough (non productive x 3 days) - *Gastrointestinal Denies abdominal pain, Denies vomiting - *Genitourinary Denies difficulty urinating - *Musculoskeletal Reports back pain - Integumentary/Breasts Denies rash - *Neurologic Reports headache(s), Denies dizziness - Psychiatric Denies depression - Allergic/Immunologic Denies wheezing Meds Home Medications Medication Instructions Recorded Confirmed Type Levothyroxine Sodium 50 mcg PO DAILY 06/25/19 06/25/19 History [Levothyroxine 50mcg (0.05mg) Tab] Mirabegron [Myrbetriq] 50 mg PO DAILY 06/25/19 06/25/19 History Potassium Chloride [Pot Chlor 10 10 meq PO BID 06/25/19 06/25/19 History mEq Tab] Rosuvastatin Calcium 5 mg PO DAILY 06/25/19 06/25/19 History Tobramycin/Dexamethasone 2 drp EYE-BOTH DAILY 06/25/19 06/25/19 History [Tobramycin-Dexameth Ophth Susp] lisinopriL [Lisinopril 20mg Tab] 20 mg PO DAILY 06/25/19 06/25/19 History Amlodipine Besylate [Norvasc 2.5mg 2.5 mg PO DAILY #30 tab 06/27/19 Rx tablet] Meclizine HCl [Antivert 12.5mg 12.5 mg PO TID #90 tab 06/27/19 Rx tablet] Allergies Allergy/AdvReac Type Severity Reaction Status Date / Time nitrofurantoin Allergy Verified 06/25/19 04:23 Exam Vital signs and Labs for Last 24 Hours: Temp Pulse Resp BP Pulse Ox 98.4 F 82 19 144/74 H 95 11/27/20 08:00 11/27/20 08:00 11/27/20 08:00 11/27/20 08:00 11/27/20 08:00 Laboratory Results - last 24 hr 11/26/20 18:00: WBC 8.7, RBC 3.56 L, Hgb 10.2 L, Hct 30.2 L, MCV 84.7, MCH 28.7, MCHC 33.9, RDW 15.3, Plt Count 368, MPV 8.4, Neut % (Auto) 89.9 H, Lymph % (Auto) 4.3 L, [place] % (Auto) 5.6, Eos % (Auto) 0.1, Baso % (Auto) 0.2, Neut # (Auto) 7.9 H, Lymph # (Auto) 0.4 L, [place] # (Auto) 0.5, Eos # (Auto) 0.0, Baso # (Auto) 0.0, Total Counted 100, Neutrophils % (Manual) 90 H, Band Neutrophils % 1.0, Lymphocytes % (Manual) 5 L, Monocytes % (Manual) 2, E
--- NOTE | 2020-11-27 10:05 | CT_ITS ---
PROCEDURE INFORMATION: Exam: CT Head Without Contrast Exam date and time: 11/27/2020 10:05 AM Age: 85 years old Clinical indication: Injury or trauma; Fall. TECHNIQUE: Imaging protocol: Computed tomography of the head without contrast. Radiation optimization: All CT scans at this facility use at least one of these dose optimization techniques: automated exposure control; mA and/or kV adjustment per patient size (includes targeted exams where dose is matched to clinical indication); or iterative reconstruction. COMPARISON: CT HEAD/BRAIN WO CON 06/25/2019 5:21 AM FINDINGS: Brain: There is low attenuation abnormality in the periventricular white matter consistent with chronic microvascular ischemic changes. Cerebral ventricles: There is ventriculomegaly, similar to prior study. Paranasal sinuses: Visualized sinuses are unremarkable. No fluid levels. Mastoid air cells: Visualized mastoid air cells are well aerated. Vasculature: There is moderate intracranial vascular calcification. Bones/joints: Unremarkable. No acute fracture. Soft tissues: Unremarkable. IMPRESSION: 1. No posttraumatic intracranial findings. Please see details above. 2. There is ventriculomegaly, similar to prior study. Please correlate with any clinical symptoms of normal pressure hydrocephalus.
--- NOTE | 2020-11-27 10:46 | HMH.PHAVTE ---
[facility] Pharmacy VTE Monitoring - Patient Demographics Admission date: 11/27/20 Report Date: 11/27/20 Time: 10:46 Allergies/Adverse Reactions: Patient Allergies nitrofurantoin Allergy (Verified 06/25/19 04:23) Height: 1.52 m Weight: 40.823 kg Patient Problems: Current Active Problems Hypokalemia (Acute) Low back pain (Acute) Fall (Acute) Hyponatremia (Acute) COVID-19 (Acute) - VTE Risk Labs: VTE Related Lab Results Hgb 9.5 g/dL (12.2-16.2) L 11/27/20 05:00 Hct 28.8 % (37.0-47.0) L 11/27/20 05:00 Plt Count 350 K/mm3 (142-424) 11/27/20 05:00 BUN 4 mg/dl (7-17) L D 11/27/20 05:00 Creatinine 0.40 mg/dl (0.52-1.04) L 11/27/20 05:00 Estimated Creat Clear 27 mL/min (50-200) 11/27/20 05:00 - Prophylaxis Types of VTE Prophylaxis: TEDS Knee High (JEOVANNY HOSE ORDER PLACED)
[2020-11-27 12:00] VITALS: BP 124/88; PULSE 77; RESP 18; TEMP 36.7; O2SAT 96
[2020-11-27 16:00] VITALS: BP 134/57; PULSE 70; PULSE 82; RESP 18; TEMP 36.8; O2SAT 97
--- NOTE | 2020-11-27 18:34 | PC.NURSE ---
NO ACUTE CHANGES THIS SHIFT. FLUIDS CHANGED TO D5 1/2 NS W/40MEQ OF KCL. DENIES PAIN, NO N/V/D NOTED
[2020-11-27 20:00] VITALS: BP 145/74; PULSE 76; PULSE 80; RESP 16; TEMP 36.8; O2SAT 96; O2SAT 97
[2020-11-28] VITALS (7 sets, daily range): BP systolic 142–169; BP diastolic 72–94; PULSE 70–85; RESP 15–18; TEMP 36.6–37; O2SAT 96–97; BMI 18.7
--- NOTE | 2020-11-28 03:25 | PC.NURSE ---
No ACUTE changes this shift. Patient has rested comfortably through the night. Patient vital signs remain stable. Telemetry has been NSR. Patient has a 24 in her right wrist infusing D5 1/2NS w/ 40 mEq K+ at 75ml/hr. Call light within reach, will continue to monitor.
[2020-11-28 06:30] LABS: Basophils % 0.3 % (0.1-2.0); Eosinophils % 0.2 % (0.1-12.0); Hemoglobin 10.3 g/dL (12.2-16.2); Lymphocytes # 0.9 K/mm3 (0.7-4.5); Lymphocytes % 17.2 % (10-50); Mean Corpuscular HGB Conc 33.1 g/dL (31.8-35.4); Mean Corpuscular Hemoglobin 28.8 pg (27.0-31.2); Mean Corpuscular Volume 86.8 fl (81-99); Mean Platelet Volume 6.9 fl (7.4-10.4); Monocytes # 0.5 K/mm3 (0.1-1.0); Monocytes % 8.8 % (1.7-9.3); Neutrophils # 3.8 K/mm3 (1.8-7.8); Neutrophils % 73.5 % (37.0-80.0); Platelet Count 357 K/mm3 (142-424); Red Blood Count 3.57 M/mm3 (4.20-5.40); Red Cell Distribution Width 15.3 % (11.5-17.5); White Blood Count 5.2 K/mm3 (4.8-10.8)
[2020-11-28 06:45] LABS: Chloride 94 mmol/L (98-107); Potassium 3.6 mmoL/L (3.5-5.1); Sodium 129 mmol/L (136-145)
[2020-11-28 06:48] LABS: Alanine Aminotransferase 16 U/L (12-78); Alkaline Phosphatase 109 U/L (38-126); Anion Gap 9.6 mEq/L (5-15); Aspartate Amino Transferase 37 U/L (14-36); Bilirubin,Direct 0.3 mg/dl (0.0-0.4); Bilirubin,Total 0.3 mg/dl (0.2-1.3); Blood Urea Nitrogen 2 mg/dl (7-17); Carbon Dioxide 29 mmol/L (22.0-30.0); Creatinine Clearance Estimated 29 mL/min (50-200); Estimated Glomerular Filt Rate 212 ml/min (>60); GFR (African American) 257 ML/MIN (>60); Glucose 109 mg/dl (74-100)
[2020-11-28 06:49] LABS: Albumin Level 3.3 g/dl (3.5-5.0); Iron 24 ug/dL (37-170)
[2020-11-28 06:54] LABS: Erythrocyte Sedimentation Rate 58 mm/hr (0-30)
[2020-11-28 06:55] LABS: C-Reactive Protein 18.8 mg/L (0-4)
[2020-11-28 06:58] LABS: Total Iron Binding Capacity 272 ug/dL (265-497)
--- NOTE | 2020-11-28 09:59 | HMH.ACPN2 ---
Internal Medicine - PN: Subj *Date: 11/28/20 *Time: 10:43 Interval history: Patient with no new complaints today Exam Vital signs and Labs for Last 24 Hours: Temp Pulse Resp BP Pulse Ox 97.9 F 73 16 152/72 H 97 11/28/20 07:36 11/28/20 07:36 11/28/20 07:36 11/28/20 07:36 11/28/20 07:36 Laboratory Results - last 24 hr 11/28/20 05:55: Sodium 129 L, Potassium 3.6 D, Chloride 94 L, Carbon Dioxide 29, Anion Gap 9.6, BUN 2 L D, Creatinine 0.30 L D, Estimated Creat Clear 29, Estimated GFR 212, Est GFR ( Amer) 257 D, Glucose 109 H, Calcium 8.0 L, Iron 24 L, TIBC 272, Iron Saturation 8.86193 L, Total Bilirubin 0.3, Direct Bilirubin 0.3, Conjugated Bilirubin 0.0, Indirect Bilirubin 0.0, Unconjugated Bilirubin 0.0, AST 37 H, ALT 16, Alkaline Phosphatase 109, C-Reactive Protein 18.8 H, Total Protein 6.0 L, Albumin 3.3 L 11/28/20 05:55: ESR 58 H 11/28/20 05:55: WBC 5.2, RBC 3.57 L, Hgb 10.3 L, Hct 31.0 L, MCV 86.8, MCH 28.8, MCHC 33.1, RDW 15.3, Plt Count 357, MPV 6.9 L, Neut % (Auto) 73.5, Lymph % (Auto) 17.2, [place] % (Auto) 8.8, Eos % (Auto) 0.2, Baso % (Auto) 0.3, Neut # (Auto) 3.8, Lymph # (Auto) 0.9, [place] # (Auto) 0.5, Eos # (Auto) 0.0, Baso # (Auto) 0.0 Vital Signs - 24 hr 11/27/20 12:00 11/27/20 16:00 11/27/20 20:00 Temperature 98.0 F 98.3 F 98.2 F Pulse Rate 70 80 Pulse Rate [Right Radial] 77 82 76 Respiratory Rate 18 18 16 Blood Pressure [Right Arm] 124/88 134/57 L 145/74 H 02 Sat by Pulse Oximetry 96 97 97 11/28/20 00:00 11/28/20 04:00 11/28/20 07:36 Temperature 97.9 F 98.6 F 97.9 F Pulse Rate 80 70 Pulse Rate [Right Radial] 77 80 73 Respiratory Rate 16 16 16 Blood Pressure [Right Arm] 159/74 H 142/94 H 152/72 H 02 Sat by Pulse Oximetry 96 97 97 I & O for Last 24 hours: Intake & Output 11/25/20 11/26/20 11/27/20 11/28/20 23:59 23:59 23:59 23:59 Intake Total 1100 / 1100 2280 / 2280 1611 / 1611 Output Total 2300 / 4500 3620 / 3620 Balance 1100 / 1100 - / -2219 -2008 Weight 90 lb 95 lb 4 oz - Constitutional no acute distress - *Routine Respiratory Exam Present: CTA bilaterally - *Routine Cardiovascular Exam Present: RRR Assessment and Plan (1) COVID-19 Status: Acute Category: Medical Code(s): U07.1 - COVID-19 (2) Hyponatremia Status: Acute Category: Medical Code(s): E87.1 - Hypo-osmolality and hyponatremia (3) Fall Status: Acute Qualifiers: Encounter type: initial encounter Qualified Code(s): W19.XXXA - Unspecified fall, initial encounter Category: Medical Code(s): W19.XXXA - Unspecified fall, initial encounter (4) Hypokalemia Status: Acute Category: Medical Code(s): E87.6 - Hypokalemia (5) Low back pain Status: Acute Qualifiers: Chronicity: acute Back pain laterality: bilateral Sciatica presence: without sciatica Qualified Code(s): M54.5 - Low back pain Category: Medical Code(s): M54.5 - Low back pain (6) Headache Status: Acute Category: Medical Code(s): R51.9 - Headache, unspecified (7) Iron deficiency anemia Status: Acute Category: Medical Code(s): D50.9 - Iron deficiency anemia, unspecified - Assessment and plan all Dx Assessment and Plan for all problems:: Potassium and H/H have improved, still need stool hemocult. Plan PT evaluation tomorrow.
--- NOTE | 2020-11-28 17:03 | PC.NURSE ---
PT WAS TREATED ONCE WITH PRN ZOFAN FOR NAUSEA THIS EVENING WITH GOOD EFFECTIVENESS NOTED, NICKERSON CATH REMAINS IN PLACE, MILD HYPERTENSION NOTED WITH 1600 VITALS, SHE HAS TOLERATED DIET WELL, SHE IS ABLE TO MAKE NEEDS KNOWN TO STAFF, CALL LIGHT WITHIN REACH, WILL CONTINUE TO MONITOR.
[2020-11-29] VITALS (9 sets, daily range): BP systolic 129–158; BP diastolic 55–97; PULSE 68–80; RESP 14–18; TEMP 36.4–37; O2SAT 95–98; BMI 18.4; BMI 18.2
--- NOTE | 2020-11-29 00:23 | PC.NURSE ---
pt refused bath this evening. did comb out hair and brushed teeth. pt states she wants to wait till the morning for a bath she will have more energy to do it then.
--- NOTE | 2020-11-29 03:09 | PC.NURSE ---
Patient has had no acute changes this shift. Patient remains on room air. Clay catheter is draining adequate urine output. Vital signs are stable, will continue to monitor, call light within reach.
[2020-11-29 06:31] LABS: Chloride 94 mmol/L (98-107); Potassium 3.8 mmoL/L (3.5-5.1); Sodium 128 mmol/L (136-145)
[2020-11-29 06:34] LABS: Alanine Aminotransferase 16 U/L (12-78); Albumin Level 3.6 g/dl (3.5-5.0); Alkaline Phosphatase 106 U/L (38-126); Anion Gap 9.8 mEq/L (5-15); Aspartate Amino Transferase 35 U/L (14-36); Bilirubin,Direct 0.2 mg/dl (0.0-0.4); Bilirubin,Total 0.2 mg/dl (0.2-1.3); Blood Urea Nitrogen 3 mg/dl (7-17); Calcium 8.5 mg/dl (8.4-10.2); Carbon Dioxide 28 mmol/L (22.0-30.0); Creatinine Clearance Estimated 28 mL/min (50-200); Estimated Glomerular Filt Rate 152 ml/min (>60); GFR (African American) 184 ML/MIN (>60); Glucose 110 mg/dl (74-100); Total Protein,Serum 6.4 g/dl (6.3-8.2)
--- NOTE | 2020-11-29 08:41 | HMH.ACPN2 ---
Internal Medicine - PN: Subj *Date: 11/29/20 *Time: 09:05 Interval history: Patient states she feels better today, no new complaints. Exam Vital signs and Labs for Last 24 Hours: Temp Pulse Resp BP Pulse Ox 98.1 F 75 16 142/64 H 95 11/29/20 07:54 11/29/20 07:54 11/29/20 07:54 11/29/20 07:54 11/29/20 07:54 Laboratory Results - last 24 hr 11/29/20 05:48: Sodium 128 L, Potassium 3.8, Chloride 94 L, Carbon Dioxide 28, Anion Gap 9.8, BUN 3 L D, Creatinine 0.40 L D, Estimated Creat Clear 28, Estimated GFR 152, Est GFR ( Amer) 184 D, Glucose 110 H, Calcium 8.5, Total Bilirubin 0.2, Direct Bilirubin 0.2, Conjugated Bilirubin 0.0, Indirect Bilirubin 0.0, Unconjugated Bilirubin 0.0, AST 35, ALT 16, Alkaline Phosphatase 106, Total Protein 6.4, Albumin 3.6 Vital Signs - 24 hr 11/28/20 12:00 11/28/20 15:34 11/28/20 16:00 Temperature 98.3 F Pulse Rate 70 70 Pulse Rate [Right Radial] 75 Respiratory Rate 18 Blood Pressure [Right Arm] 169/74 H 02 Sat by Pulse Oximetry 97 11/28/20 20:00 11/29/20 00:00 11/29/20 04:00 Temperature 98.5 F 98.2 F 98.6 F Pulse Rate 80 70 70 Pulse Rate [Right Radial] 85 69 68 Respiratory Rate 15 16 16 Blood Pressure [Right Arm] 159/77 H 158/70 H 133/55 L 02 Sat by Pulse Oximetry 97 97 96 11/29/20 07:54 Temperature 98.1 F Pulse Rate Pulse Rate [Right Radial] 75 Respiratory Rate 16 Blood Pressure [Right Arm] 142/64 H 02 Sat by Pulse Oximetry 95 I & O for Last 24 hours: Intake & Output 11/26/20 11/27/20 11/28/20 11/29/20 23:59 23:59 23:59 23:59 Intake Total 1100 / 1100 2280 / 2280 2091 / 2091 1232 / 1232 Output Total 2300 / 4500 5720 / 5720 400 / 400 Balance 1100 / 1100 -20 / -2220 -3629 / -3629 832 / 832 Weight 90 lb 95 lb 4 oz 91 lb 6 oz - Constitutional no acute distress - *Routine Respiratory Exam Present: CTA bilaterally - *Routine Cardiovascular Exam Present: RRR Assessment and Plan (1) COVID-19 Status: Acute Category: Medical Code(s): U07.1 - COVID-19 (2) Hyponatremia Status: Acute Category: Medical Code(s): E87.1 - Hypo-osmolality and hyponatremia (3) Fall Status: Acute Qualifiers: Encounter type: initial encounter Qualified Code(s): W19.XXXA - Unspecified fall, initial encounter Category: Medical Code(s): W19.XXXA - Unspecified fall, initial encounter (4) Hypokalemia Status: Acute Category: Medical Code(s): E87.6 - Hypokalemia (5) Low back pain Status: Acute Qualifiers: Chronicity: acute Back pain laterality: bilateral Sciatica presence: without sciatica Qualified Code(s): M54.5 - Low back pain Category: Medical Code(s): M54.5 - Low back pain (6) Headache Status: Acute Category: Medical Code(s): R51.9 - Headache, unspecified (7) Iron deficiency anemia Status: Acute Category: Medical Code(s): D50.9 - Iron deficiency anemia, unspecified - Assessment and plan all Dx Assessment and Plan for all problems:: Sodium is lower today, change to D5 NS with 20 KCL, H/H is slightly higher, awaiting test results and PT eval.
--- NOTE | 2020-11-29 12:42 | HMH.PTEV ---
Physical Therapy Evaluation Rehab PT IP Evaluation Start: 11/29/20 09:00 Freq: ONCE Status: Active Protocol: Document 11/29/20 12:00 RADHA (Rec: 11/29/20 12:42 RADHA [id number]) Subjective/History History History Pt is 85 year old female admitted to [facility] after fall at home. Pt's reports this is her second fall at home in past 2 days. Subjective Subjective Pt reported minimal pain this morning. Pt stated she lives in one level home with 1 step with . Pt reported using rolling walker at home after hip fracture surgery this past September. Eval completed by SANTIAGO Olsen . Rehab PT IP Eval Objective Appearance Patient Behavior Appropriate,Cooperative Patient Orientation Place,Name,Birthday,Year Difficulty following instructions none Speech Pattern Clear,Appropriate,Coherent Ambulation Patient Able to Ambulate Yes Ambulation Observation IP General Gait Pattern Observation Wide Based Gait,Shuffling Step Ambulation Distance (feet) 2 Ambulation Assistive Device None Ambulation Ability Contact Guard/Hand Hold, Minimal x 1 (25% assist) Balance Ability to Arise Able, uses arms to help Sitting Balance Steady, safe Standing Balance Steady, wide stance Dynamic Sitting Balance Ability Good Dynamic Standing Balance Ability Fair Transfers Bed Transfer Ability Contact Guard/Hand Hold Sit to Stand Bed Transfer Ability Contact Guard/Hand Hold MMT All Extremities PT MMT WFL Rehab PT IP prob,goals,plan Problems Date of Evaluation: 11/29/20 PT IP Problems Transfers,Gait,Balance,Safety Rehab Potential Rehab Potential Fair Equipment Needs Assistive Devices Rolling / Wheeled Walker Plan PT Intervention Plan Transfers,Gait,Balance,Safety, Therapeutic Exercise PT Plan Frequency BID Duration LOS Discharge Goals Bed Transfer Ability Contact Guard/Hand Hold Ambulation Assistive Device Rolling Walker Ambulation Distance (feet) 5 Discharge Plan PT Discharge Plan Due to pt's recent falls, pt would benefit from skilled therapy with short term stay in SNF to improve balance
--- NOTE | 2020-11-29 12:43 | PC.NURSE ---
PT STATES THAT SHE WILL NOT TAKE VITAMIN C. EDUCATED ON BENEFITS AND POC STILL REFUSED
--- NOTE | 2020-11-29 19:56 | PC.NURSE ---
Patient has had no acute changes this shift. Patient remains on room air. Clay catheter is clear yellow urine. Vital signs are stable, will continue to monitor, call light within reach.
[2020-11-30] VITALS (7 sets, daily range): BP systolic 128–166; BP diastolic 58–77; PULSE 70–90; RESP 14–18; TEMP 36.6–37.1; O2SAT 96–98; BMI 17.7
--- NOTE | 2020-11-30 05:43 | PC.NURSE ---
pATIENT IS A&O. nO COMPLAINTS OF PAIN. GOOD URINE OUTPUT PER NICKERSON. VSS. NO FURTHER CONCERNS.
[2020-11-30 08:38] LABS: Basophils % 0.2 % (0.1-2.0); Chloride 96 mmol/L (98-107); Eosinophils % 0.4 % (0.1-12.0); Hematocrit 35.1 % (37.0-47.0); Hemoglobin 11.2 g/dL (12.2-16.2); Lymphocytes # 0.9 K/mm3 (0.7-4.5); Lymphocytes % 13.9 % (10-50); Mean Corpuscular Hemoglobin 27.9 pg (27.0-31.2); Mean Corpuscular Volume 87.2 fl (81-99); Mean Platelet Volume 7.7 fl (7.4-10.4); Monocytes # 0.4 K/mm3 (0.1-1.0); Monocytes % 5.3 % (1.7-9.3); Neutrophils # 5.3 K/mm3 (1.8-7.8); Neutrophils % 80.1 % (37.0-80.0); Platelet Count 416 K/mm3 (142-424); Red Blood Count 4.02 M/mm3 (4.20-5.40); Red Cell Distribution Width 15.5 % (11.5-17.5); Sodium 131 mmol/L (136-145); White Blood Count 6.7 K/mm3 (4.8-10.8)
[2020-11-30 08:39] LABS: Potassium 3.6 mmoL/L (3.5-5.1)
[2020-11-30 08:41] LABS: Blood Urea Nitrogen 5 mg/dl (7-17); Creatinine Clearance Estimated 27 mL/min (50-200); Estimated Glomerular Filt Rate 118 ml/min (>60); GFR (African American) 143 ML/MIN (>60)
[2020-11-30 08:42] LABS: Anion Gap 10.6 mEq/L (5-15); Calcium 8.4 mg/dl (8.4-10.2); Carbon Dioxide 28 mmol/L (22.0-30.0); Glucose 132 mg/dl (74-100)
--- NOTE | 2020-11-30 08:57 | HMH.ACPN2 ---
Internal Medicine - PN: Subj *Date: 11/30/20 *Time: 08:57 Interval history: Patient with no new complaints today. PT note reviewed, recommends SNF placement. Exam Vital signs and Labs for Last 24 Hours: Temp Pulse Resp BP Pulse Ox 98.2 F 83 17 148/68 H 97 11/30/20 07:33 11/30/20 07:33 11/30/20 07:33 11/30/20 07:33 11/30/20 07:33 Laboratory Results - last 24 hr 11/30/20 08:05: Sodium 131 L, Potassium 3.6, Chloride 96 L, Carbon Dioxide 28, Anion Gap 10.6, BUN 5 L D, Creatinine 0.50 L D, Estimated Creat Clear 27, Estimated GFR 118, Est GFR ( Amer) 143 D, Glucose 132 H, Calcium 8.4 11/30/20 08:05: WBC 6.7 D, RBC 4.02 L, Hgb 11.2 L, Hct 35.1 L, MCV 87.2, MCH 27.9, MCHC 32.0, RDW 15.5, Plt Count 416, MPV 7.7, Neut % (Auto) 80.1 H, Lymph % (Auto) 13.9, Murray % (Auto) 5.3, Eos % (Auto) 0.4, Baso % (Auto) 0.2, Neut # (Auto) 5.3, Lymph # (Auto) 0.9, [place] # (Auto) 0.4, Eos # (Auto) 0.0, Baso # (Auto) 0.0 Vital Signs - 24 hr 11/29/20 11:37 11/29/20 12:00 11/29/20 15:28 Temperature 98.1 F 97.6 F Pulse Rate 80 Pulse Rate [Right Radial] 70 78 Respiratory Rate 17 18 Blood Pressure [Right Arm] 129/97 H 157/66 H 02 Sat by Pulse Oximetry 97 98 11/29/20 16:00 11/29/20 20:00 11/30/20 00:00 Temperature 97.6 F 98.3 F Pulse Rate 70 80 80 Pulse Rate [Right Radial] 77 78 Respiratory Rate 14 15 Blood Pressure [Right Arm] 147/64 H 128/65 02 Sat by Pulse Oximetry 97 97 11/30/20 04:00 08/17/21 07:33 Temperature 98.7 F 98.2 F Pulse Rate 70 Pulse Rate [Right Radial] 74 83 Respiratory Rate 14 17 Blood Pressure [Right Arm] 131/58 L 148/68 H 02 Sat by Pulse Oximetry 96 97 I & O for Last 24 hours: Intake & Output 11/27/20 11/28/20 11/29/20 11/30/20 23:59 23:59 23:59 23:59 Intake Total 2280 / 2280 209 / 2091 1712 / 1712 1984 Output Total 2300 / 4500 5720 / 5720 1400 / 1400 1500 / 1500 Balance -20 / -2220 -3629 / -3629 312 / 312 485 / 485 Weight 95 lb 4 oz 90 lb 6.232 oz 88 lb 2 oz - Constitutional no acute distress - *Routine Respiratory Exam Present: CTA bilaterally - *Routine Cardiovascular Exam Present: RRR - *Routine Extremities Exam Absent: cyanosis, clubbing, edema Assessment and Plan (1) COVID-19 Status: Acute Category: Medical Code(s): U07.1 - COVID-19 (2) Hyponatremia Status: Acute Category: Medical Code(s): E87.1 - Hypo-osmolality and hyponatremia (3) Fall Status: Acute Qualifiers: Encounter type: initial encounter Qualified Code(s): W19.XXXA - Unspecified fall, initial encounter Category: Medical Code(s): W19.XXXA - Unspecified fall, initial encounter (4) Hypokalemia Status: Acute Category: Medical Code(s): E87.6 - Hypokalemia (5) Low back pain Status: Acute Qualifiers: Chronicity: acute Back pain laterality: bilateral Sciatica presence: without sciatica Qualified Code(s): M54.5 - Low back pain Category: Medical Code(s): M54.5 - Low back pain (6) Headache Status: Acute Category: Medical Code(s): R51.9 - Headache, unspecified (7) Iron deficiency anemia Status: Acute Category: Medical Code(s): D50.9 - Iron deficiency anemia, unspecified - Assessment and plan all Dx Assessment and Plan for all problems:: Labs pending this morning. Will consult care management for SNF placement.
[2020-11-30 09:01] LABS: Alanine Aminotransferase 20 U/L (12-78); Albumin Level 3.5 g/dl (3.5-5.0); Alkaline Phosphatase 107 U/L (38-126); Aspartate Amino Transferase 38 U/L (14-36); Bilirubin,Direct 0.4 mg/dl (0.0-0.4); Bilirubin,Total 0.4 mg/dl (0.2-1.3); Total Protein,Serum 6.1 g/dl (6.3-8.2)
--- NOTE | 2020-11-30 10:56 | SW/DCPLANNER ---
Addendum entered by [facility] 12/01/20 13:54: I have informed Mary with [facility] that patient/family are not interested in placement at this time. Addendum entered by [facility] 12/01/20 11:53: I have talked to numerous home health agencies and due to being COVID positive or insurance ([employer]) complicates patients situation: [facility] will only see if patient has a negative swab or 10 days after positive swab (services starting on 12/06), [facility]: does NOT accept COVID positive, [facility]: does not accept insurance, Counts include 234 beds at the [facility]: currently not covering [facility], and [facility]: does not accept patients insurance. I did call and discuss situation with Dr Pablo and he is going to order another COVID swab for this patient. I will follow up with home health, patients family and Dr Pablo once COVID swab results. Addendum entered by [facility] 12/01/20 10:19: I spoke with both patients and daughter regarding plan of rehabilitation in [facility] (only facility that will accept COVID positive). Patients is not agreeable with [facility]. I have explained to that [facility] is the ONLY facility that will accept. stated that he prefer patient return home with home health services. I have called and informed Dr Pablo of situation. I will continue to follow up with patients family until medically stable for discharge. I will call home health agencies today to find an agency that can accept and is in network. Addendum entered by [facility] 11/30/20 14:52: Kelly has stated she has started the precert for this patient. I will update patients family. Addendum entered by [facility] 11/30/20 14:11: Kelly with [facility] has stated that they are NOT in network with patients insurance but they are going to call insurance and see if they can approve due to being COVID positive. Kelly will contact me back once speaking with insurance. Addendum entered by [facility] 11/30/20 11:33: I spoke with patients daughter (Liss) as well regarding discharge plans. Liss stated that she is currently in the process of completing paperwork to become POA of parents. I explained situation to Liss regarding discharge. Liss did concur that this patient does need placement to regain her strength when she is medically stable for discharge. At this time the following facilities are NOT accepting COVID (+) patients: [place], [place], [facility], [facility], [facility], [facility], [facility], [facility], [facility], [place], [facility]. Currently waiting to hear back from: [facility], [facility], [facility] and [facility]. The only facility at this time that can accept COVID positive patients is [facility]. I informed daughter of situation: stated placement in [facility] is NOT idea but if this is the only facility then she would agree if patients agrees. Daughter has stated to fax information and if they can offer a bed she will explain to patients . I will continue to follow up with: facilities, patients family and MD. Discharge date is unknown at this time. Original Note: I spoke with patients regarding plans once medically stable for discharge. stated that patient has had a few falls at home in the past week. I informed that PT has recommended placement once medically stable to discharge: concurs with this plan and has requested [place]. I also informed that due to patient being COVID (+) placement could be difficult but I would keep him updated. I will reach out to [place] and other facilities today.
--- NOTE | 2020-11-30 18:14 | PC.NURSE ---
Pts IV was pulled out, pt refuses to be stuck again at this time d/t eating dinner. Will reassess when pt is done
[2020-12-01] VITALS (9 sets, daily range): BP systolic 149–178; BP diastolic 68–96; PULSE 70–96; RESP 14–16; TEMP 36.5–36.8; O2SAT 95–98; BMI 18.1
--- NOTE | 2020-12-01 03:14 | PC.NURSE ---
pt is alert and oriented. assist x1 to BSC. bath given this shift. new iv placed in left forearm. patent and infusing per order. telemetry reads NSR. vss. no changes from previous assessment. call light in reach. will continue to monitor
[2020-12-01 08:11] LABS: Chloride 96 mmol/L (98-107); Potassium 3.6 mmoL/L (3.5-5.1); Sodium 130 mmol/L (136-145)
[2020-12-01 08:14] LABS: Anion Gap 9.6 mEq/L (5-15); Blood Urea Nitrogen 4 mg/dl (7-17); Calcium 8.1 mg/dl (8.4-10.2); Carbon Dioxide 28 mmol/L (22.0-30.0); Creatinine Clearance Estimated 27 mL/min (50-200); Estimated Glomerular Filt Rate 212 ml/min (>60); GFR (African American) 257 ML/MIN (>60); Glucose 110 mg/dl (74-100)
--- NOTE | 2020-12-01 08:49 | HMH.ACPN2 ---
<Olga Lidia Graham - Last Filed: 12/01/20 08:49> Internal Medicine - PN: Subj *Date: 12/01/20 *Time: 08:49 Interval history: Patient states she is feeling better. She denies chest pain, shortness of breath, and cough. She is trying to eat more. She is voiding QS and bowels have moved just a little. Exam Vital signs and Labs for Last 24 Hours: Temp Pulse Resp BP Pulse Ox 97.8 F 78 15 151/69 H 97 12/01/20 08:00 12/01/20 08:00 12/01/20 08:00 12/01/20 08:00 12/01/20 08:00 Laboratory Results - last 24 hr 11/30/20 08:05: Total Bilirubin 0.4, Direct Bilirubin 0.4, Conjugated Bilirubin 0.0, Indirect Bilirubin 0.0, Unconjugated Bilirubin 0.0, AST 38 H, ALT 20, Alkaline Phosphatase 107, Total Protein 6.1 L, Albumin 3.5 12/01/20 05:32: Sodium 130 L, Potassium 3.6, Chloride 96 L, Carbon Dioxide 28, Anion Gap 9.6, BUN 4 L, Creatinine 0.30 L D, Estimated Creat Clear 27, Estimated GFR 212, Est GFR ( Amer) 257 D, Glucose 110 H, Calcium 8.1 L I & O for Last 24 hours: Intake & Output 11/28/20 11/29/20 11/30/20 12/01/20 11:59 11:59 11:59 11:59 Intake Total 2551 / 2551 1712 / 1712 2465 / 2465 1727 / 1727 Output Total 4520 / 4520 2500 / 2500 2500 / 2500 400 / 400 Balance -1969 / -1969 -788 / -788 -35 / -35 1327 / 1327 Weight 95 lb 4 oz 90 lb 6.232 oz 88 lb 2 oz 89 lb 9 oz - Constitutional no acute distress Comments: Sitting on the side of the bed and is eating her breakfast. - *Routine Respiratory Exam Present: CTA bilaterally (Anteriorly and posteriorly) - *Routine Cardiovascular Exam Present: RRR - *Routine Abdominal Exam Present: soft, normoactive bowel sounds. Absent: tenderness - *Routine Extremities Exam Absent: edema, calf tenderness - *Routine Neurological Exam Present: alert, oriented X3 Assessment and Plan (1) COVID-19 Status: Acute Category: Medical Code(s): U07.1 - COVID-19 (2) Hyponatremia Status: Acute Category: Medical Code(s): E87.1 - Hypo-osmolality and hyponatremia (3) Fall Status: Acute Qualifiers: Encounter type: initial encounter Qualified Code(s): W19.XXXA - Unspecified fall, initial encounter Category: Medical Code(s): W19.XXXA - Unspecified fall, initial encounter (4) Hypokalemia Status: Acute Category: Medical Code(s): E87.6 - Hypokalemia (5) Low back pain Status: Acute Qualifiers: Chronicity: acute Back pain laterality: bilateral Sciatica presence: without sciatica Qualified Code(s): M54.5 - Low back pain Category: Medical Code(s): M54.5 - Low back pain (6) Headache Status: Acute Category: Medical Code(s): R51.9 - Headache, unspecified (7) Iron deficiency anemia Status: Acute Category: Medical Code(s): D50.9 - Iron deficiency anemia, unspecified - Assessment and plan all Dx Assessment and Plan for all problems:: Discussed dietary options with patient. Will consult dietitian due to weight loss, debility, and Covid. Otherwise we'll continue current treatment. Care management is working on placement. <Jimi Pablo - Last Filed: 12/01/20 09:11> Internal Medicine - PN: Subj *Date: 12/01/20 *Time: 09:11 Exam Vital signs and Labs for Last 24 Hours: Temp Pulse Resp BP Pulse Ox 97.8 F 78 15 151/69 H 97 12/01/20 08:00 12/01/20 08:00 12/01/20 08:00 12/01/20 08:00 12/01/20 08:00 Laboratory Results - last 24 hr 12/01/20 05:32: Sodium 130 L, Potassium 3.6, Chloride 96 L, Carbon Dioxide 28, Anion Gap 9.6, BUN 4 L, Creatinine 0.30 L D, Estimated Creat Clear 27, Estimated GFR 212, Est GFR ( Amer) 257 D, Glucose 110 H, Calcium 8.1 L 12/01/20 05:32: Total Bilirubin 0.4, Direct Bilirubin 0.4, Conjugated Bilirubin 0.0, Indirect Bilirubin 0.0, Unconjugated Bilirubin 0.0, AST 37 H, ALT 17, Alkaline Phosphatase 125, Total Protein 5.9 L, Albumin 3.3 L I & O for Last 24 hours: Intake & Output 11/28/20 11/29/20 11/30/20 12/01/20 23:59 23:59 23:59 23:59 Int
[2020-12-01 08:53] LABS: Alanine Aminotransferase 17 U/L (12-78); Alkaline Phosphatase 125 U/L (38-126); Aspartate Amino Transferase 37 U/L (14-36); Bilirubin,Direct 0.4 mg/dl (0.0-0.4); Bilirubin,Total 0.4 mg/dl (0.2-1.3)
[2020-12-01 08:54] LABS: Albumin Level 3.3 g/dl (3.5-5.0); Total Protein,Serum 5.9 g/dl (6.3-8.2)
[2020-12-01 12:39] LABS: Influenza A, PCR Not Detected (NotDetected); Influenza B, PCR Not Detected (NotDetected)
[2020-12-01 13:25] LABS: Coronavirus 19, PCR Detected (NotDetected)
--- NOTE | 2020-12-01 14:21 | DIET.NUTRFU ---
Addendum entered by Florence Diaz 12/03/20 14:21: PO intakes 50-75% + BID supplements, weight stable, no BM since 11/30. She has remained too tired for verbal diet edu, in depth written edu provided and will f/u with pt at [facility]. Pt to [facility] 12/06 with home health per family wishes pending set backs. Original Note: Nutritional consult received for weight loss/poor PO intake. PO intakes 50% but improved today with 75% and 100% of meals. She has had some nausea t/o stay and prior to admission. She is receiving IVF with D5. Weight has remained stable. She had 2 BMs yesterday, first t/o stay. Pt stated too tired to for diet edu today but did provide written diet edu and communicated with pt's nurse on dietary preferences. Will f/u for verbal diet edu as well. Diet order altered to include soup with all meals and BID supplements of pt's preference. Pt reports recent weight loss, however weight is the same as 1 year ago per [facility] records. She may have fluctuated in this time, will further assess with pt at f/u.
--- NOTE | 2020-12-01 14:41 | PC.NURSE ---
1322- spoke to tawanda in lab. verified pt name, , and room number. pt is still COVID + 1330- spoke to MD Pablo, NNO 1338- notified HNeto Dykes of positive result as well
--- NOTE | 2020-12-01 17:12 | PC.NURSE ---
Pt has rested majority of this shift. Pt has gotten up to BSC w/ x1 assist. Urine cloudy and dark yellow. x1 loose BM this shift. No other acute changes or complaints.
[2020-12-02] VITALS (8 sets, daily range): BP systolic 139–176; BP diastolic 60–86; PULSE 70–84; RESP 16–18; TEMP 36.4–36.9; O2SAT 95–98; BMI 18.6
--- NOTE | 2020-12-02 06:12 | PC.NURSE ---
shift summary registered nurse cardiac telemetry has shown sr throughout shift without ectopy. puriwick in place, draining clear yellow urine. sats have maintained mid 90s on r/a. c/o head once,treated successfully with tylenol. patient refused ascorbic acid due to inability to swallow pill.
--- NOTE | 2020-12-02 08:38 | HMH.ACPN2 ---
Internal Medicine - PN: Subj *Date: 12/02/20 *Time: 09:10 Interval history: Patient states she was up urinating a lot last night Exam Vital signs and Labs for Last 24 Hours: Temp Pulse Resp BP Pulse Ox 98.2 F 72 16 176/80 H 96 12/02/20 03:56 12/02/20 04:00 12/02/20 03:56 12/02/20 03:56 12/02/20 03:56 Laboratory Results - last 24 hr 12/01/20 05:32: Total Bilirubin 0.4, Direct Bilirubin 0.4, Conjugated Bilirubin 0.0, Indirect Bilirubin 0.0, Unconjugated Bilirubin 0.0, AST 37 H, ALT 17, Alkaline Phosphatase 125, Total Protein 5.9 L, Albumin 3.3 L 12/01/20 12:19: SARS-CoV-2 (PCR) Detected A, Influenza A Untype (PCR) Not detected, Influenza Type B (PCR) Not detected Vital Signs - 24 hr 12/01/20 11:50 12/01/20 12:00 12/01/20 15:29 Temperature 98.2 F 98.3 F Pulse Rate 85 Pulse Rate [Right Radial] 88 82 Respiratory Rate 16 15 Blood Pressure [Right Arm] 155/79 H 178/96 H 02 Sat by Pulse Oximetry 97 98 12/01/20 16:00 12/01/20 20:00 12/01/20 23:41 Temperature 98.2 F 97.7 F Pulse Rate 91 H 83 Pulse Rate [Right Radial] 79 84 Respiratory Rate 14 16 Blood Pressure [Right Arm] 149/70 H 176/86 H 02 Sat by Pulse Oximetry 97 98 12/02/20 00:00 12/02/20 03:56 12/02/20 04:00 Temperature 97.7 F 98.2 F Pulse Rate 76 72 Pulse Rate [Right Radial] 84 71 Respiratory Rate 16 16 Blood Pressure [Right Arm] 176/86 H 176/80 H 02 Sat by Pulse Oximetry 98 96 I & O for Last 24 hours: Intake & Output 11/29/20 11/30/20 12/01/20 12/02/20 23:59 23:59 23:59 23:59 Intake Total 1712 / 1712 2585 / 2585 1487 / 1487 900 / 900 Output Total 1400 / 1400 1900 / 1900 800 / 800 800 / 800 Balance 312 / 312 685 / 685 687 / 687 100 / 100 Weight 90 lb 6.232 oz 88 lb 2 oz 89 lb 9 oz 92 lb 5 oz - Constitutional no acute distress - *Routine Respiratory Exam Present: CTA bilaterally - *Routine Cardiovascular Exam Present: RRR Assessment and Plan (1) COVID-19 Status: Acute Category: Medical Code(s): U07.1 - COVID-19 (2) Hyponatremia Status: Acute Category: Medical Code(s): E87.1 - Hypo-osmolality and hyponatremia (3) Fall Status: Acute Qualifiers: Encounter type: initial encounter Qualified Code(s): W19.XXXA - Unspecified fall, initial encounter Category: Medical Code(s): W19.XXXA - Unspecified fall, initial encounter (4) Hypokalemia Status: Acute Category: Medical Code(s): E87.6 - Hypokalemia (5) Low back pain Status: Acute Qualifiers: Chronicity: acute Back pain laterality: bilateral Sciatica presence: without sciatica Qualified Code(s): M54.5 - Low back pain Category: Medical Code(s): M54.5 - Low back pain (6) Headache Status: Acute Category: Medical Code(s): R51.9 - Headache, unspecified (7) Iron deficiency anemia Status: Acute Category: Medical Code(s): D50.9 - Iron deficiency anemia, unspecified - Assessment and plan all Dx Assessment and Plan for all problems:: Patient is slowly improving. Plan to saline lock IVF now. Discharge planning is ongoing.
--- NOTE | 2020-12-02 13:29 | CARE MANAGER ---
I have submitted for insurance approval of moving patient to swing bed status until she can go home safely and receive home health. RUTHY Gonzalez
--- NOTE | 2020-12-02 17:58 | PC.NURSE ---
SHE IS ALERT AND ORIENTED, ABLE TO MAKE NEEDS KNOWN TO STAFF, REMAINS ON ROOM AIR, SHE HAS REFUSED HER VIT C TODAY. VITAL SIGNS HAVE REMAINED STABLE T/O SHIFT, NSR ON TELE WITH HR N THE 70'S-80'S. SHE HAS DENIED N/V/D. CALL LIGHT WITHIN REACH,
[2020-12-03] VITALS: PULSE 80
[2020-12-03 04:00] VITALS: BP 125/71; PULSE 72; PULSE 80; RESP 18; TEMP 36.7; O2SAT 98
[2020-12-03 05:00] VITALS: BMI 18.6
--- NOTE | 2020-12-03 06:58 | PC.NURSE ---
Patient had an uneventful night this shift; no acute distress noted, call light within reach, bed at lowest level for safety; will continue to monitor.
[2020-12-03 08:00] VITALS: BP 113/70; PULSE 70; PULSE 78; RESP 16; TEMP 36; O2SAT 99
--- NOTE | 2020-12-03 08:34 | HMH.ACPN2 ---
Internal Medicine - PN: Subj *Date: 12/03/20 *Time: 08:34 Interval history: Patient with no new complaints today. Spoke to her by phone yesterday. He reiterated that he and the patient want her to come home with home health as soon as possible. Exam Vital signs and Labs for Last 24 Hours: Temp Pulse Resp BP Pulse Ox 96.8 F L 78 16 113/70 99 12/03/20 08:00 12/03/20 08:00 12/03/20 08:00 12/03/20 08:00 12/03/20 08:00 Vital Signs - 24 hr 12/02/20 12:00 12/02/20 16:00 12/02/20 20:00 Temperature 98.2 F 98.5 F 97.8 F Pulse Rate 80 70 80 Pulse Rate [Right Radial] 84 82 79 Respiratory Rate 18 18 18 Blood Pressure [Right Arm] 164/66 H 139/60 153/63 H 02 Sat by Pulse Oximetry 97 97 95 12/02/20 23:54 12/03/20 00:00 12/03/20 04:00 Temperature 97.6 F 98.0 F Pulse Rate 80 80 Pulse Rate [Right Radial] 76 72 Respiratory Rate 16 18 Blood Pressure [Right Arm] 167/75 H 125/71 02 Sat by Pulse Oximetry 96 98 12/03/20 08:00 Temperature 96.8 F L Pulse Rate Pulse Rate [Right Radial] 78 Respiratory Rate 16 Blood Pressure [Right Arm] 113/70 02 Sat by Pulse Oximetry 99 I & O for Last 24 hours: Intake & Output 11/30/20 12/01/20 12/02/20 12/03/20 23:59 23:59 23:59 23:59 Intake Total 2585 / 2585 1487 / 1487 1340 / 1340 Output Total 1900 / 1900 800 / 800 800 / 1200 400 / 400 Balance 685 / 685 687 / 687 540 / 140 -400 / -400 Weight 88 lb 2 oz 89 lb 9 oz 92 lb 5 oz 92 lb 4.815 oz - Constitutional no acute distress - *Routine HEENT Exam Head: Present: normocephalic Eye: Present: EOMI, PERRL ENT: Present: mucous membranes moist - *Routine Neck Exam Present: supple. Absent: lymphadenopathy - *Routine Respiratory Exam Present: CTA bilaterally - *Routine Cardiovascular Exam Present: RRR - *Routine Abdominal Exam Present: soft, normoactive bowel sounds. Absent: tenderness - *Routine Extremities Exam Absent: cyanosis, clubbing, edema - *Routine Skin Exam Present: warm. Absent: rash - *Routine Neurological Exam Present: alert, oriented X3 Assessment and Plan (1) COVID-19 Status: Acute Category: Medical Code(s): U07.1 - COVID-19 (2) Hyponatremia Status: Acute Category: Medical Code(s): E87.1 - Hypo-osmolality and hyponatremia (3) Fall Status: Acute Qualifiers: Encounter type: initial encounter Qualified Code(s): W19.XXXA - Unspecified fall, initial encounter Category: Medical Code(s): W19.XXXA - Unspecified fall, initial encounter (4) Hypokalemia Status: Acute Category: Medical Code(s): E87.6 - Hypokalemia (5) Low back pain Status: Acute Qualifiers: Chronicity: acute Back pain laterality: bilateral Sciatica presence: without sciatica Qualified Code(s): M54.5 - Low back pain Category: Medical Code(s): M54.5 - Low back pain (6) Headache Status: Acute Category: Medical Code(s): R51.9 - Headache, unspecified (7) Iron deficiency anemia Status: Acute Category: Medical Code(s): D50.9 - Iron deficiency anemia, unspecified - Assessment and plan all Dx Assessment and Plan for all problems:: Spoke to administration. They have no interest in changing to swing bed status. If situation is unchanged, plan discharge home with home health on 12/06.
[2020-12-03 12:00] VITALS: BP 166/70; PULSE 88; PULSE 90; RESP 14; TEMP 36.5; O2SAT 99
--- NOTE | 2020-12-03 14:18 | CARE MANAGER ---
Received call from [employer] with approval for swing bed status starting today. RUTHY Gonzalez
--- NOTE | 2020-12-03 17:27 | HMH.DCSUM ---
General - General Admission date:: 11/26/20 Discharge date: 12/03/20 HPI HPI: Ms. Méndez is an 85 year old patient of Dr. Lara in [place], who was brought to [facility] ER last night after falling at home. Patient states she went to the bathroom to have a bowel movement and fell down and could not get up and EMS was called to bring her to the ER. Patient his and states that this was the second day in a row that she had fallen at home and been brought to the ER for evaluation. He states she has a history of fluid on her brain . He also states that she fell coming out of a restaurant 2 months ago and sustained a left hip fracture. At that time, she was taken to [facility] in [place] and had a total left hip replacement and spent some time in the [facility] afterwards for rehab. He states she has a history of vertigo but has not had any recent problems with dizziness. Hospital Course Hospital Course: The patient's x-rays showed no acute fracture. She did have a head CT which showed no posttraumatic intracranial findings. There was ventriculomegaly. The patient was found to be positive for Covid. She was admitted for further evaluation of her frequent falls and weakness. The patient's electrolytes were abnormal and her iron was found to be low. Her potassium was also low. Her potassium and H&H improved, a stool for blood was ordered and a PT evaluation was ordered as well. Her sodium continued to decrease, therefore her IV fluids were changed. Physical therapy saw the patient and felt she would benefit from short-term rehab at a half-way facility. Care management was consulted for half-way placement. By 12/01/2020, the patient was feeling better and was trying to eat. Her electrolytes had improved. The dietitian was consulted due to weight loss, debility, and Covid. The patient stated she was not interested in going to a rehab facility out of this area. She and her wanted her to be discharged home with home health as soon as possible. Dr. Pablo spoke to administration about possible swing bed status and they did want the patient to be in a swing bed, so arrangements were made and she was discharged for further rehab. Mental Status: Alert Prognosis: Good Rehab potential: Good Objective Vital signs: Temp Pulse Resp BP Pulse Ox 97.7 F 88 14 166/70 H 99 12/03/20 12:00 12/03/20 12:00 12/03/20 12:00 12/03/20 12:00 12/03/20 12:00 Narrative: - Constitutional no acute distress, thin - *Routine HEENT Exam Head: Present: normocephalic Eye: Present: EOMI, PERRL ENT: Present: mucous membranes moist - *Routine Neck Exam Present: supple. Absent: lymphadenopathy - *Routine Respiratory Exam Present: CTA bilaterally - *Routine Cardiovascular Exam Present: RRR - *Routine Abdominal Exam Present: soft, normoactive bowel sounds. Absent: tenderness - *Routine Rectal Exam Rectal:: deferred - *Routine Genitalia Exam Genitalia:: deferred - *Routine Extremities Exam Absent: cyanosis, clubbing, edema - *Routine Skin Exam Present: warm. Absent: rash Comments: small skin tear/abrasion present over the right [place] and on the left forearm - *Routine Neurological Exam Present: alert, oriented X3 DS: Diagnosis - Discharge Diagnosis (1) COVID-19 Status: Acute (2) Hyponatremia Status: Acute (3) Fall Status: Acute (4) Hypokalemia Status: Acute (5) Low back pain Status: Acute (6) Headache Status: Acute (7) Iron deficiency anemia Status: Acute Discharge Plan - Patient Discharge Instructions ACTIVITY: Continue current activity DIET: continue same diet Patient Instructions: DI for COVID-19 (Suspected or Confirmed ), COVID-19: Protecting Yourself When You're at High Risk, Preventing the Spread of Coronavirus Discharge Instructions - Follow up Plan Disposition: [facility] Bed Condition at discharge:: Stable H
== END 2020-12-03 14:50 | disposition swing bed (61) | DRG 178 ==
LOC: ER 18:42 → 2ND 20:09 → ICU 20:15 → 2ND 11-29 11:19
PROVIDERS: Emergency Medicine; Admitting Provider Family Medicine; Emergency Provider Emergency Medicine; Visit Provider Family Medicine
DX: U07.1 COVID-19 (principal); E87.1 Hypo-osmolality and hyponatremia; Z68.1 Body mass index [BMI] 19.9 or less, adult; M54.5 Low back pain; I10 Essential (primary) hypertension; Y92.012 Bathroom of single-family (private) house as the place of occurrence of the external cause; W01.0XXA Fall on same level from slipping, tripping and stumbling without subsequent striking against object, initial encounter; E03.9 Hypothyroidism, unspecified; Z91.81 History of falling; R29.6 Repeated falls; D50.9 Iron deficiency anemia, unspecified; I48.91 Unspecified atrial fibrillation; Z79.899 Other long term (current) drug therapy; E87.6 Hypokalemia; R63.4 Abnormal weight loss; E78.5 Hyperlipidemia, unspecified; Z96.642 Presence of left artificial hip joint; R53.81 Other malaise
CPT/HCPCS: 36415; 70450; 71045; 72170; 80048; 80053; 80061; 80076; 81001; 83540; 83550; 83735; 84100; 84443; 85007; 85025; 85651; 86140; 93005; 96365; 96367; 96375; 97110; 97116; 97162; 97530; 99284; J2405; U0003

== ENCOUNTER 2020-12-03 14:17 | Inpatient (IN) | payer MEDICARE, SELFPAY ==
[2020-12-03 14:44] VITALS: BMI 18.6
--- NOTE | 2020-12-03 15:47 | P.CONPHA_ITS ---
[facility] Pharm[facility] VTE Monitoring - Patient Demographics Admission date: 12/03/20 Report Date: 12/03/20 Time: 15:47 Allergies/Adverse Reactions: Patient Allergies nitrofurantoin Allergy (Verified 06/25/19 04:23) Height: 1.5 m Weight: 41.867 kg - Prophylaxis VTE Prophylaxis Ordered?: Yes Types of VTE Prophylaxis: TEDS Knee High Location of Applied Device: Bilateral Lower Extremeties
[2020-12-03 16:00] VITALS: BP 149/58; PULSE 100; RESP 16; TEMP 36.5; O2SAT 99
--- NOTE | 2020-12-03 16:06 | HMH.PTSBEV ---
Physical Therapy Swing Bed Evaluation Rehab PT IP Swing Eval Start: 12/03/20 15:39 Freq: ONCE Status: Active Protocol: Document 12/03/20 16:01 PHOCHENCHO (Rec: 12/03/20 16:05 PHORNE [id number]) Rehab PT Swing Bed Eval Objective Appearance Patient Behavior Appropriate Patient Orientation Person,Place,Time Difficulty following instructions none Speech Pattern Clear Ambulation Patient Able to Ambulate Yes Can Patient Ambulate 50' with 2 Turns no Can Patient Ambulate 150' with 2 Turns no Does Pt use W/C or Scooter? No Ambulation Observation IP General Gait Pattern Observation Wide Based Gait,Shuffling Step Ambulation Distance (feet) 10 Ambulation Assistive Device None Balance Ability to Arise Able, uses arms to help Sitting Balance Steady, safe Standing Balance Steady, wide stance Dynamic Sitting Balance Ability Good Dynamic Standing Balance Ability Fair Transfers Bed Transfer Ability Contact Guard/Hand Hold Chair Transfer Ability Minimal x 1 (25% assist) Sit to Stand Bed Transfer Ability Minimal x 1 (25% assist) Sit to Stand Chair Transfer Ability Minimal x 1 (25% assist) Rehab PT IP prob,goals,plan Problems Date of Evaluation: 12/03/20 PT IP Problems Bed Mobility,Transfers,Gait Rehab Potential Rehab Potential Good Plan PT Intervention Plan Bed Mobility,Transfers,Gait, Therapeutic Exercise PT Plan Frequency BID Duration LOS Discharge Goals Bed Transfer Ability Contact Guard/Hand Hold Sit to Stand Chair Transfer Ability Contact Guard/Hand Hold Ambulation Assistive Device Rolling Walker Ambulation Distance (feet) 25 Discharge Plan PT Discharge Plan Pt is most appropriate for rehab placement at [facility] time, but could return home with home health and family assistance once medically stable if ambulation improves. G -code Required No Eval Complexity Eval Charge Codes 19250 - Moderate Complexity PHYSICIAN CERTIFICATION: I certify the specified therapy services for Liz Méndez are required, authorized, and reviewed every 30 days.
[2020-12-03 20:00] VITALS: BP 148/75; PULSE 64; RESP 16; TEMP 36.6; O2SAT 97
--- NOTE | 2020-12-04 04:36 | PC.NURSE ---
pt is AxOx4, has rested t/o shift, remains on room air, no complaints of pain or SOA
[2020-12-04 05:48] VITALS: BMI 18.6
[2020-12-04 08:00] VITALS: BP 120/52; PULSE 90; RESP 14; TEMP 36.5; O2SAT 98
--- NOTE | 2020-12-04 10:02 | HMH.ACPN2 ---
Internal Medicine - PN: Subj *Date: 12/04/20 *Time: 10:02 Interval history: Patient with no new complaints today, in swing bed status now for rehab, which is ongoing today. Exam Vital signs and Labs for Last 24 Hours: Temp Pulse Resp BP Pulse Ox 97.7 F 90 14 120/52 L 98 12/04/20 08:00 12/04/20 08:00 12/04/20 08:00 12/04/20 08:00 12/04/20 08:00 I & O for Last 24 hours: Intake & Output 12/01/20 12/02/20 12/03/20 12/04/20 23:59 23:59 23:59 23:59 Intake Total 480 / 540 300 / 300 Output Total 700 / 700 Balance -220 / -160 300 / 300 Weight 92 lb 4.815 oz 92 lb 9.506 oz - Constitutional no acute distress - *Routine Respiratory Exam Present: CTA bilaterally - *Routine Cardiovascular Exam Present: RRR Assessment and Plan (1) COVID-19 Status: Acute Category: Medical Code(s): U07.1 - COVID-19 (2) Fall Status: Acute Category: Medical Code(s): W19.XXXA - Unspecified fall, initial encounter (3) Hypokalemia Status: Acute Category: Medical Code(s): E87.6 - Hypokalemia (4) Iron deficiency anemia Status: Acute Category: Medical Code(s): D50.9 - Iron deficiency anemia, unspecified (5) Low back pain Status: Acute Qualifiers: Category: Medical Code(s): M54.5 - Low back pain - Assessment and plan all Dx Assessment and Plan for all problems:: Continue current treatment.
--- NOTE | 2020-12-04 17:40 | PC.NURSE ---
Shift summary. Pt has voiced 1x complaint to staff of a posterior headache and pain in her left arm. Pt was tx per JUN and pt reported favorable results. Pt has been tearful this shift claiming she just wants to go home. Pt has tolerated room air well with no c/o SOA. Pt currently sitting up on side of bed eating dinner. Call light within reach. Will continue to monitor.
[2020-12-04 20:00] VITALS: BP 127/62; PULSE 83; RESP 16; TEMP 36.4; O2SAT 98
--- NOTE | 2020-12-05 03:16 | PC.NURSE ---
No acute changes. Pt has rested well. Ate 50% of dinner. Pt remains on RA. VSS. No complaints of discomfort. Pt has been assisted this shift with raising up to side of bed. She did not need assistance with getting back in bed this evening. Pt stated that she wanted to do it herself. [place] remains on. No other concerns. Will continue to monitor.
[2020-12-05 04:00] VITALS: BP 161/73; PULSE 88; RESP 18; TEMP 37; O2SAT 98
[2020-12-05 05:00] VITALS: BMI 17.8
[2020-12-05 16:00] VITALS: BP 131/90; PULSE 89; RESP 16; TEMP 36.8; O2SAT 98
--- NOTE | 2020-12-05 16:37 | PC.NURSE ---
Shift summary. No acute changes. Pt has voiced no complaints to staff t/o shift. Pt has tolerated room air well with no complaints of SOA. Pt was able to bathe self with minimal assistance. Pt currently in bed, asleep. Call light within reach. Will continue to monitor.
[2020-12-05 20:00] VITALS: BP 158/70; PULSE 81; RESP 18; TEMP 36.4; O2SAT 99
--- NOTE | 2020-12-06 04:54 | PC.NURSE ---
No acute changes this shift. Pt was up to side of bed and talked on cellphone. Pt brushed her teeth. Was assisted back to bed with one assist. Pt has c/o a headache. No other complaints voiced. VSS. Medication administered per jun. Will continue to monitor.
[2020-12-06 07:13] LABS: Basophils % 0.2 % (0.1-2.0); Eosinophils % 0.3 % (0.1-12.0); Hemoglobin 10.3 g/dL (12.2-16.2); Lymphocytes # 1.3 K/mm3 (0.7-4.5); Mean Corpuscular HGB Conc 32.3 g/dL (31.8-35.4); Mean Corpuscular Hemoglobin 28.4 pg (27.0-31.2); Mean Corpuscular Volume 88.1 fl (81-99); Monocytes # 0.8 K/mm3 (0.1-1.0); Monocytes % 8.3 % (1.7-9.3); Neutrophils # 6.9 K/mm3 (1.8-7.8); Neutrophils % 77.2 % (37.0-80.0); Red Blood Count 3.63 M/mm3 (4.20-5.40); Red Cell Distribution Width 15.2 % (11.5-17.5); White Blood Count 8.9 K/mm3 (4.8-10.8)
[2020-12-06 07:15] LABS: Chloride 95 mmol/L (98-107); Potassium 3.2 mmoL/L (3.5-5.1); Sodium 130 mmol/L (136-145)
[2020-12-06 07:18] LABS: Anion Gap 7.2 mEq/L (5-15); Blood Urea Nitrogen 5 mg/dl (7-17); Calcium 8.3 mg/dl (8.4-10.2); Carbon Dioxide 31 mmol/L (22.0-30.0); Creatinine Clearance Estimated 27 mL/min (50-200); Estimated Glomerular Filt Rate 212 ml/min (>60); GFR (African American) 257 ML/MIN (>60); Glucose 103 mg/dl (74-100)
[2020-12-06 08:00] VITALS: BP 138/76; PULSE 76; RESP 18; TEMP 36.6; O2SAT 95
[2020-12-06 08:20] LABS: Platelet Count 663 K/mm3 (142-424)
--- NOTE | 2020-12-06 08:32 | P.PN_ITS ---
Internal Medicine - PN: Subj *Date: 12/06/20 *Time: 09:06 Interval history: Patient feels better today. Has already worked with PT today and walked 60 feet. She is anxious to go home. Exam Vital signs and Labs for Last 24 Hours: Temp Pulse Resp BP Pulse Ox 97.5 F L 81 18 158/70 H 99 12/05/20 20:00 12/05/20 20:00 12/05/20 20:00 12/05/20 20:00 12/05/20 20:00 Laboratory Results - last 24 hr 12/06/20 06:10: WBC 8.9, RBC 3.63 L, Hgb 10.3 L, Hct 32.0 L, MCV 88.1, MCH 28.4, MCHC 32.3, RDW 15.2, Plt Count 663 H, MPV 8.0, Neut % (Auto) 77.2, Lymph % (Auto) 14.0, [place] % (Auto) 8.3, Eos % (Auto) 0.3, Baso % (Auto) 0.2, Neut # (Auto) 6.9, Lymph # (Auto) 1.3, [place] # (Auto) 0.8, Eos # (Auto) 0.0, Baso # (A uto) 0.0 12/06/20 06:10: Sodium 130 L, Potassium 3.2 L, Chloride 95 L, Carbon Dioxide 31 H, Anion Gap 7.2, BUN 5 L, Creatinine 0.30 L, Estimated Creat Clear 27, Estimated GFR 212, Est GFR ( Amer) 257, Glucose 103 H, Calcium 8.3 L Vital Signs - 24 hr 12/05/20 16:00 12/05/20 20:00 Temperature 98.3 F 97.5 F L Pulse Rate [Right Radial] 89 81 Respiratory Rate 16 18 Blood Pressure [Right Arm] 131/90 158/70 H 02 Sat by Pulse Oximetry 98 99 I & O for Last 24 hours: Intake & Output 12/03/20 12/04/20 12/05/20 12/06/20 23:59 23:59 23:59 23:59 Intake Total 480 / 540 540 / 540 1200 / 1200 Output Total 700 / 700 250 / 250 450 / 450 Balance -220 / -160 290 / 290 750 / 750 Weight 92 lb 4.815 oz 92 lb 9.506 oz 88 lb 9 oz - Constitutional no acute distress Assessment and Plan (1) COVID-19 Status: Acute Category: Medical Code(s): U07.1 - COVID-19 (2) Fall Status: Acute Category: Medical Code(s): W19.XXXA - Unspecified fall, initial encounter (3) Hypokalemia Status: Acute Category: Medical Code(s): E87.6 - Hypokalemia (4) Iron deficiency anemia Status: Acute Category: Medical Code(s): D50.9 - Iron deficiency anemia, unspecified (5) Low back pain Status: Acute Qualifiers: Category: Medical Code(s): M54.5 - Low back pain - Assessment and plan all Dx Assessment and Plan for all problems:: OK for discharge, once home health agency will accept patient, could be today.
--- NOTE | 2020-12-06 09:27 | SW/DCPLANNER ---
PATIENT ADMITTED ON SUNDAY TO THE SWING BED UNIT FOR PHYSICAL THERAPY R/T COVID AND WEAKNESS.. FAMILY DIDN'T FEEL THAT THEY COULD ADEQUATELY CARE FOR HER AT HOME SINCE FAMILY ALSO HAD COVID.. PRIOR TO PATIENT COMING TO THE HOSPITAL, SHE WAS AT HOME WITH HER .. SHE HAS A SON AND DAUGHTER, HER DAUGHTER IS LISTED THE PERSON TO NOTIFY STATING IS HARD OF HEARING..PATIENT HAS DONE WELL DURING HER SHORT SWING BED STAY AND WILL DISCHARGE HOME TODAY WITH HOME HEALTH SERVICES.. I HAVE NOTIFIED DAUGHTER AND LEFT A MESSAGE TO CALL ME ON WHAT HOME HEALTH AGENCY SHE WISHES TO USE... THIS WILL BE SET UP ONCE I KNOW IF SHE GOES HOME WITH HER OR GOES WITH DAUGHTER WHO LIVES IN DEFIANCE...ALL APPROPRIATE PAPERWORK WAS DONE VIA PHONE TO PATIENT AND IT WAS VERBALLY ACKNOWLEDGED R/T PATIENT BEING IN ISOLATION D/T COVID....
--- NOTE | 2020-12-06 09:37 | SW/DCPLANNER ---
Psychosocial swingbed assessment has been completed for this patient. Patient was admitted to a swingbed on 12/03/20 due to COVID positive diagnosis and the need for continued PT/OT prior to returning home with her . I spoke with patients and daughter during hospital admission: both have stated that patient resides at home with , uses a walker, has a wheel chair if needed and plans to return home with home health services once medically stable for discharge. Patients daughter does not reside in same county but helps as much as possible. I will continue to follow up with this swingbed patient to assist with any needs/new orders. Patient is expected to discharge home later today with home health services. This swingbed assessment was limited due to patient and her family being COVID positive.
--- NOTE | 2020-12-06 11:21 | SW/DCPLANNER ---
SET UP HOME HEALTH FOR THIS PATIENT WHO IS DISCHARGING HOME TODAY... PATIENT CHOSE [facility] SINCE THEY ARE THE ONLY AGENCY THAT WILL ACCEPT PATIENT THAT ARE COVID POSITIVE...I HAVE SENT REFERRAL AND ORDERS FOR SERVICES TO START IN THE AM.... IS COMING TO PICK UP LATER IN THE DAY...
--- NOTE | 2020-12-06 15:25 | HMH.DCSUM ---
General - General Admission date:: 12/03/20 Discharge date: 12/06/20 HPI HPI: Ms. Méndez is an 85 year old patient of Dr. Lara in [place], who was brought to [facility] ER last night after falling at home. Patient states she went to the bathroom to have a bowel movement and fell down and could not get up and EMS was called to bring her to the ER. Patient his and states that this was the second day in a row that she had fallen at home and been brought to the ER for evaluation. He states she has a history of fluid on her brain . He also states that she fell coming out of a restaurant 2 months ago and sustained a left hip fracture. At that time, she was taken to [facility] in [place] and had a total left hip replacement and spent some time in the custodial afterwards for rehab. He states she has a history of vertigo but has not had any recent problems with dizziness. The patient's x-rays showed no acute fracture. She did have a head CT which showed no posttraumatic intracranial findings. There was ventriculomegaly. The patient was found to be positive for Covid. She was admitted for further evaluation of her frequent falls and weakness. The patient's electrolytes were abnormal and her iron was found to be low. Her potassium was also low. Her potassium and H&H improved, a stool for blood was ordered and a PT evaluation was ordered as well. Her sodium continued to decrease, therefore her IV fluids were changed. Physical therapy saw the patient and felt she would benefit from short-term rehab at a longterm facility. Care management was consulted for longterm placement. By 12/01/2020, the patient was feeling better and was trying to eat. Her electrolytes had improved. The dietitian was consulted due to weight loss, debility, and Covid. The patient stated she was not interested in going to a rehab facility out of this area. She and her wanted her to be discharged home with home health as soon as possible. Dr. Pablo spoke to administration about possible swing bed status and they did want the patient to be in a swing bed, so arrangements were made and she was discharged for further rehab. Hospital Course Hospital Course: The patient had no new complaints and did well during her swing bed admission. She did work with PT and was able to walk 60 feet. She was anxious to go home and was stable to be discharged with home health. Mental Status: Alert Prognosis: Good Rehab potential: Good Objective Vital signs: Temp Pulse Resp BP Pulse Ox 97.9 F 76 18 138/76 95 12/06/20 08:00 12/06/20 08:00 12/06/20 08:00 12/06/20 08:00 12/06/20 08:00 Narrative: - Constitutional no acute distress - *Routine Respiratory Exam Present: CTA bilaterally - *Routine Cardiovascular Exam Present: RRR Results Labs on day of discharge: Labs from last 24 hours 12/06/20 12/06/20 06:10 06:10 WBC 8.9 RBC 3.63 L Hgb 10.3 L Hct 32.0 L MCV 88.1 MCH 28.4 MCHC 32.3 RDW 15.2 Plt Count 663 H MPV 8.0 Neut % (Auto) 77.2 Lymph % (Auto) 14.0 Esmeralda % (Auto) 8.3 Eos % (Auto) 0.3 Baso % (Auto) 0.2 Neut # (Auto) 6.9 Lymph # (Auto) 1.3 Esmeralda # (Auto) 0.8 Eos # (Auto) 0.0 Baso # (Auto) 0.0 Sodium 130 L Potassium 3.2 L Chloride 95 L Carbon Dioxide 31 H Anion Gap 7.2 BUN 5 L Creatinine 0.30 L Estimated Creat Clear 27 Estimated GFR 212 Est GFR ( Amer) 257 Glucose 103 H Calcium 8.3 L DS: Diagnosis - Discharge Diagnosis (1) COVID-19 Status: Acute (2) Fall Status: Acute (3) Hypokalemia Status: Acute (4) Iron deficiency anemia Status: Acute (5) Low back pain Status: Acute Discharge Plan - Patient Discharge Instructions ACTIVITY: Continue current activity DIET: continue same diet Patient Instructions: How to Prevent Falls, Preventing the Spread of Coronavirus Discharge
== END 2020-12-06 13:25 | disposition home health service (06) | DRG 551 ==
PROVIDERS: Admitting Provider Family Medicine; Visit Provider Family Medicine
DX: M54.5 Low back pain (principal); E87.1 Hypo-osmolality and hyponatremia; Z68.1 Body mass index [BMI] 19.9 or less, adult; R26.2 Difficulty in walking, not elsewhere classified; I10 Essential (primary) hypertension; E03.9 Hypothyroidism, unspecified; Z91.81 History of falling; U07.1 COVID-19; R29.6 Repeated falls; D50.9 Iron deficiency anemia, unspecified; I48.91 Unspecified atrial fibrillation; Z79.899 Other long term (current) drug therapy; E87.6 Hypokalemia; R63.4 Abnormal weight loss
CPT/HCPCS: 80048; 85025; 86580; 97116; 97530; J2405

== ENCOUNTER → 2021-05-16 13:46 | Outpatient (CLI) | payer MEDICARE, SELFPAY ==
--- NOTE | 2021-05-16 13:50 | XR_ITS ---
FINAL REPORT CLINICAL HISTORY: foot pain FINDINGS: 3 views of the left foot were obtained. The bones are osteopenic. There is no acute fracture or dislocation. There are mild degenerative changes. The soft tissues are unremarkable. IMPRESSION: Mild degenerative change. Reviewed, Interpreted and Dictated by Abe Saucedo III, MD Transcribed by Shabbir Chauhan Authenticated by Abe Saucedo III, MD on 05/16/2021 03:26:32 PM [facility]
== END ==
PROVIDERS: PCP Family Medicine; Visit Provider Podiatrist
DX: M79.672 Pain in left foot (principal)
CPT/HCPCS: 73630

== ENCOUNTER 2021-06-14 15:36 | Emergency (ER) | payer MEDICARE, SELFPAY ==
[2021-06-14] VITALS (9 sets, daily range): BP systolic 144–220; BP diastolic 71–93; PULSE 64–75; RESP 14–18; TEMP 36.6–36.7; O2SAT 92–97; BMI 19.6; BMI 19.5
--- NOTE | 2021-06-14 | XR_ITS ---
PROCEDURE INFORMATION: Exam: XR Left Hip Exam date and time: 06/14/2021 12:00 AM Age: 86 years old Clinical indication: Injury or trauma; Fall; Blunt trauma (contusions or hematomas); Left; Hip TECHNIQUE: Imaging protocol: XR Left hip. Views: 2 or 3 views hip with pelvis when performed. COMPARISON: CR XR PELVIS 1-2V 11/26/2020 4:47 PM FINDINGS: Bones/joints: There is no evidence of acute fracture. Bones are osteopenic. There is no evidence of joint malalignment or dislocation. Status post left total hip replacement and postoperative changes of the right hip with [address] No evidence of complications. Soft tissues: Unremarkable. Gastrointestinal tract: A large amount of stool is noted throughout the colon. IMPRESSION: 1. No evidence of acute fracture. 2. Bones are osteopenic. 3. No evidence of acute dislocation. 4. Status post left total hip replacement and postoperative changes of the right hip with [address] No evidence of complications.
--- NOTE | 2021-06-14 | XR_ITS ---
PROCEDURE INFORMATION: Exam: XR Right Hip Exam date and time: 06/14/2021 12:00 AM Age: 86 years old Clinical indication: Injury or trauma; Fall; Blunt trauma (contusions or hematomas); Right; Hip TECHNIQUE: Imaging protocol: XR Right hip. Views: 2 or 3 views hip with pelvis when performed. COMPARISON: CR XR PELVIS 1-2V 11/26/2020 4:47 PM FINDINGS: Bones/joints: Three screws in place within the right proximal femur without evidence of com. There are mild degenerative changes in the right hip joint. There is no evidence of acute fracture. There is no evidence of joint malalignment or dislocation. Postoperative changes of the left hip. Soft tissues: Unremarkable. Gastrointestinal tract: A large amount of stool is noted throughout the colon. IMPRESSION: 1. Three screws in place within the right proximal femur without evidence of com. 2. There are mild degenerative changes in the right hip joint. 3. No evidence of acute fracture. 4. No evidence of acute dislocation. 5. A large amount of stool is noted throughout the colon.
--- NOTE | 2021-06-14 15:57 | CT_ITS ---
PROCEDURE INFORMATION: Exam: CT Cervical Spine Without Contrast Exam date and time: 06/14/2021 3:57 PM Age: 86 years old Clinical indication: Injury or trauma; Fall; Blunt trauma TECHNIQUE: Imaging protocol: Computed tomography images of the cervical spine without contrast. Radiation optimization: All CT scans at this facility use at least one of these dose optimization techniques: automated exposure control; mA and/or kV adjustment per patient size (includes targeted exams where dose is matched to clinical indication); or iterative reconstruction. COMPARISON: No relevant prior studies available. FINDINGS: Bones/joints: There is no evidence of acute fracture. The facet joints demonstrate mild degenerative hypertrophy and sclerosis. 2 mm anterolisthesis of C5 on C6. Discs/Spinal canal/Neural foramina: The cervical spine demonstrates mild degenerative changes at multiple levels. Prevertebral Space: No prevertebral soft tissue swelling is present. Lungs: Apical pleural thickening noted bilaterally. Vasculature: The vasculature demonstrates diffuse mild atherosclerotic calcification. Soft tissues: Unremarkable. IMPRESSION: 1. The cervical spine demonstrates mild degenerative changes at multiple levels. 2. No evidence of acute fracture. 3. 2 mm anterolisthesis of C5 on C6.
--- NOTE | 2021-06-14 15:57 | CT_ITS ---
PROCEDURE INFORMATION: Exam: CT Head Without Contrast Exam date and time: 06/14/2021 3:57 PM Age: 86 years old Clinical indication: Injury or trauma; Fall; Blunt trauma (contusions or hematomas) TECHNIQUE: Imaging protocol: Computed tomography of the head without contrast. Radiation optimization: All CT scans at this facility use at least one of these dose optimization techniques: automated exposure control; mA and/or kV adjustment per patient size (includes targeted exams where dose is matched to clinical indication); or iterative reconstruction. COMPARISON: CT CERVICAL SPINE WO CON 06/14/2021 4:32 PM FINDINGS: Brain: Age-related atrophy and chronic white matter ischemic changes, with no evidence of an acute intracranial abnormality. No hemorrhage, mass effect or midline shift. Cerebral ventricles: Cavum variants are present. The ventricular system demonstrates mild diffuse compensatory enlargement. Paranasal sinuses: Visualized sinuses are unremarkable. No fluid levels. Mastoid air cells: Visualized mastoid air cells are well aerated. Orbital cavity: Postoperative changes of both eyes. Vasculature: The vasculature demonstrates diffuse mild atherosclerotic calcification. Bones/joints: No acute fracture. Soft tissues: No acute changes IMPRESSION: 1. Age-related atrophy and chronic white matter ischemic changes, with no evidence of an acute intracranial abnormality. 2. No hemorrhage, mass effect or midline shift. 3. The ventricular system demonstrates mild diffuse compensatory enlargement.
--- NOTE | 2021-06-14 15:59 | XR_ITS ---
PROCEDURE INFORMATION: Exam: XR Left Hand Exam date and time: 06/14/2021 3:59 PM Age: 86 years old Clinical indication: Injury or trauma; Fall; Blunt trauma (contusions or hematomas); Hand; Left TECHNIQUE: Imaging protocol: XR Left hand. Views: 3 or more views. COMPARISON: No relevant prior studies available. FINDINGS: Bones/joints: There is no evidence of acute fracture. There is no evidence of joint malalignment or dislocation. Bones are osteopenic. Degenerative changes of the 1st carpometacarpal, PIP and DIP joints. Soft tissues: Normal. Other findings: A ring overlies the 4th finger. IMPRESSION: 1. No evidence of acute fracture. 2. No evidence of acute dislocation. 3. Bones are osteopenic. 4. Degenerative changes of the 1st carpometacarpal, PIP and DIP joints.
--- NOTE | 2021-06-14 15:59 | XR_ITS ---
PROCEDURE INFORMATION: Exam: XR Chest Exam date and time: 06/14/2021 3:59 PM Age: 86 years old Clinical indication: Injury or trauma; Fall; Blunt trauma (contusions or hematomas) TECHNIQUE: Imaging protocol: XR of the chest. Views: 1 view. COMPARISON: CT CERVICAL SPINE WO CON 06/14/2021 4:32 PM FINDINGS: Lungs: Bilateral hyperinflation is present. Pleural spaces: Unremarkable. No pleural effusion. No pneumothorax. Heart/Mediastinum: Heart demonstrates mild diffuse enlargement. Bones/joints: Old left-sided rib fractures. IMPRESSION: 1. Bilateral hyperinflation is present. 2. Mild cardiomegaly.
--- NOTE | 2021-06-14 17:36 | HMH.EDGENADL ---
ED Disposition Clinical Impression: Uncontrolled hypertension Fall Qualifiers: Encounter type: initial encounter Qualified Code(s): W19.XXXA - Unspecified fall, initial encounter Skin tear of hand without complication Qualifiers: Encounter type: initial encounter Laterality: left Qualified Code(s): S61.412A - Laceration without foreign body of left hand, initial encounter Disposition: Home, Self-Care Condition on Discharge: Good Instructions: How to Prevent Falls, DI for High Blood Pressure Additional Instructions: Keep Steri-Strips on for 4 to 5 days. Follow-up with your primary care provider for further management of your blood pressure. Call tomorrow to make appointment. Referrals: Provider,Referral, [Primary Care Provider] - - Critical Care Critical Care Time: No Attestation: On 06/14/21, the high probability of a clinically significant, sudden or life threatening deterioration of the following system(s) required my full and direct attention, intervention and personal management. The time I documented below is in addition to time spent performing reported procedures but includes the following listed in this critical care notation. Medical Decision Making - Andrew Inquiry Pt receiving controlled substance: No Vital Signs: 06/14/21 15:36 06/14/21 16:00 06/14/21 16:18 Temperature 98.1 F Temperature Source Oral Pulse Rate 74 64 Pulse Rate [Left Radial] 75 Respiratory Rate 18 Blood Pressure 197/80 H 197/82 H Blood Pressure [Right Arm] 207/92 H Blood Pressure Mean [Right Arm] 130 Blood Pressure Source [Right Arm] Automatic Cuff Blood Pressure Position [Right Arm] Sitting 02 Sat by Pulse Oximetry 96 96 96 Oxygen Delivery Method Room Air 06/14/21 17:31 06/14/21 17:45 06/14/21 19:06 Temperature Temperature Source Pulse Rate 71 73 Pulse Rate [Left Radial] Respiratory Rate Blood Pressure 220/82 H 207/93 H 185/87 H Blood Pressure [Right Arm] Blood Pressure Mean [Right Arm] Blood Pressure Source [Right Arm] Blood Pressure Position [Right Arm] 02 Sat by Pulse Oximetry 95 97 Oxygen Delivery Method - Lab Data Lab Results 06/14/21 18:09: WBC 9.0, RBC 4.61, Hgb 13.6, Hct 41.8, MCV 90.7, MCH 29.5, MCHC 32.6, RDW 15.6, Plt Count 409, MPV 7.5, Neut % (Auto) 83.7 H, Lymph % (Auto) 10.1, Catron % (Auto) 4.6, Eos % (Auto) 0.3, Baso % (Auto) 1.2, Neut # (Auto) 7.6, Lymph # (Auto) 0.9, Catron # (Auto) 0.4, Eos # (Auto) 0.0, Baso # (Auto) 0.1 06/14/21 18:09: Sodium 129 L, Potassium 3.5, Chloride 93 L, Carbon Dioxide 30, Anion Gap 9.5, BUN 8, Creatinine 0.50 L, Estimated Creat Clear 30, Estimated GFR 118, Est GFR ( Amer) 142, Glucose 101 H, Calcium 8.6 Result diagrams: 06/14/21 18:09 06/14/21 18:09 Orders (Tests/Meds): ED MEDICATIONS Discontinued Medications Generic Name Dose Route Start Last Admin Trade Name Freq PRN Reason Stop Dose Admin Labetalol HCl 10 mg 06/14/21 17:50 06/14/21 19:06 Labetalol 5mg/Ml 20ml Mdv IV 06/14/21 17:51 10 mg ONCE ONE Administration - Radiology Data #1 Image(s): Chest, Hand, Hip Image Reviewed: Yes I have reviewed radiologist's interpretation PROCEDURE INFORMATION: Exam: XR Left Hand Exam date and time: 06/14/2021 3:59 PM Age: 86 years old Clinical indication: Injury or trauma; Fall; Blunt trauma (contusions or hematomas); Hand; Left TECHNIQUE: Imaging protocol: XR Left hand. Views: 3 or more views. COMPARISON: No relevant prior studies available. FINDINGS: Bones/joints: There is no evidence of acute fracture. There is no evidence of joint malalignment or dislocation. Bones are osteopenic. Degenerative changes of the 1st carpometacarpal, PIP and DIP joints. Soft tissues: Normal. Other findings: A ring overlies the 4th finger. IMPRESSION: 1. No evidence of acute fracture. 2. No evidence of acute dislocation. 3. Bones are osteopenic. 4. Degenera
[2021-06-14 18:20] LABS: Basophils # 0.1 K/mm3 (0-0.2); Basophils % 1.2 % (0.1-2.0); Chloride 93 mmol/L (98-107); Eosinophils % 0.3 % (0.1-12.0); Hematocrit 41.8 % (37.0-47.0); Hemoglobin 13.6 g/dL (12.2-16.2); Lymphocytes # 0.9 K/mm3 (0.7-4.5); Lymphocytes % 10.1 % (10-50); Mean Corpuscular HGB Conc 32.6 g/dL (31.8-35.4); Mean Corpuscular Hemoglobin 29.5 pg (27.0-31.2); Mean Corpuscular Volume 90.7 fl (81-99); Mean Platelet Volume 7.5 fl (7.4-10.4); Monocytes # 0.4 K/mm3 (0.1-1.0); Monocytes % 4.6 % (1.7-9.3); Neutrophils # 7.6 K/mm3 (1.8-7.8); Neutrophils % 83.7 % (37.0-80.0); Platelet Count 409 K/mm3 (142-424); Potassium 3.5 mmoL/L (3.5-5.1); Red Blood Count 4.61 M/mm3 (4.20-5.40); Red Cell Distribution Width 15.6 % (11.5-17.5); Sodium 129 mmol/L (136-145)
[2021-06-14 18:23] LABS: Anion Gap 9.5 mEq/L (5-15); Blood Urea Nitrogen 8 mg/dl (7-17); Carbon Dioxide 30 mmol/L (22.0-30.0); Creatinine Clearance Estimated 30 mL/min (50-200); Estimated Glomerular Filt Rate 118 ml/min (>60); GFR (African American) 142 ML/MIN (>60)
[2021-06-14 18:24] LABS: Calcium 8.6 mg/dl (8.4-10.2); Glucose 101 mg/dl (74-100)
== END 2021-06-14 20:56 | disposition home or self-care (01) ==
PROVIDERS: Emergency Provider Emergency Medicine
DX: S61.412A Laceration without foreign body of left hand, initial encounter (principal); W01.0XXA Fall on same level from slipping, tripping and stumbling without subsequent striking against object, initial encounter; Y92.89 Other specified places as the place of occurrence of the external cause; I48.0 Paroxysmal atrial fibrillation; E78.5 Hyperlipidemia, unspecified; I10 Essential (primary) hypertension; Z79.899 Other long term (current) drug therapy
CPT/HCPCS: 70450; 71045; 72125; 73130; 73502; 80048; 85025; 96374; 99284

== ENCOUNTER 2022-02-20 14:48 | Outpatient (RCR) | payer MEDICARE, SELFPAY | END 2022-02-20 14:50 | disposition home or self-care (01) | LOC: PT 14:48 | PROVIDERS: PCP Family Medicine; Visit Provider Family Medicine | DX: R26.89 Other abnormalities of gait and mobility (principal) | CPT/HCPCS: 97163 ==

== ENCOUNTER → 2022-02-23 13:50 | Outpatient (CLI) | payer MEDICARE, SELFPAY ==
--- NOTE | 2022-02-23 13:58 | XR_ITS ---
FINAL REPORT CLINICAL HISTORY: chronic foot pain COMPARISON: April 2021 FINDINGS: 3 views of the left foot were obtained. The bones are osteopenic. There is no acute fracture or dislocation. The joint spaces are intact. The soft tissues are unremarkable. IMPRESSION: No acute process. Reviewed, Interpreted and Dictated by Filemon Grimes MD Transcribed by Shabbir Chauhan Authenticated and . [facility]
== END ==
PROVIDERS: PCP Family Medicine; Visit Provider Nurse Practitioner Family
DX: M19.90 Unspecified osteoarthritis, unspecified site (principal)
CPT/HCPCS: 73630

== ENCOUNTER 2022-08-11 08:38 | Emergency (ER) | payer MEDICARE, SELFPAY ==
[2022-08-11] VITALS (9 sets, daily range): BP systolic 165–220; BP diastolic 71–99; PULSE 63–76; RESP 18; TEMP 36.6; O2SAT 95–99; BMI 18.3
--- NOTE | 2022-08-11 08:22 | PC.NURSE ---
0822 pt brought in via ems. placed in c-collar at this time
--- NOTE | 2022-08-11 08:31 | CT_ITS ---
FINAL REPORT CLINICAL HISTORY: Headache after a fall COMPARISON: 06/14/2021 FINDINGS: Axial images of the head were obtained without contrast. Coronal reformatted images were also obtained. This study was performed with techniques to keep radiation doses as low as reasonably achievable (ALARA). Individualized dose reduction techniques using automated exposure control or adjustment of mA and/or kV according to the patient''s size were employed. There is generalized age-appropriate atrophy. Periventricular low-attenuation areas are seen consistent with mild chronic ischemic changes. There is moderate ventriculomegaly which is stable. The appearance is worrisome for hydrocephalus which is also stable. There is no evidence of intracranial hemorrhage or mass. There is no evidence of acute infarct. There is no evidence of shift of the midline structures. No skull abnormality is seen on the bone window images. IMPRESSION: Atrophy and mild periventricular chronic ischemic changes. Stable ventriculomegaly. Findings worrisome for hydrocephalus, stable Reviewed, Interpreted and Dictated by Abe Saucedo III, MD Transcribed by Keisha Espinoza Authenticated and . [facility]
--- NOTE | 2022-08-11 08:31 | CT_ITS ---
FINAL REPORT CLINICAL HISTORY: Neck pain after a fall COMPARISON: 06/14/2021 FINDINGS: Axial CT images of the cervical spine were obtained without contrast. Sagittal and coronal reformatted images were also obtained. This study was performed with techniques to keep radiation doses as low as reasonably achievable (ALARA). Individualized dose reduction techniques using automated exposure control or adjustment of mA and/or kV according to the patient''s size were employed. There is no evidence of fracture or dislocation. There is stable, mild anterolisthesis of C3 on C4, C4 on C5, C5 on C6, and C6 on C7. Moderate degenerative changes are seen. There is no evidence of canal stenosis or significant neural foraminal narrowing. No paraspinous soft tissue abnormality is seen. Limited images of the upper thorax demonstrate scarring. IMPRESSION: No fracture or acute bony abnormality identified. Moderate degenerative changes. Reviewed, Interpreted and Dictated by Abe Saucedo III, MD Transcribed by Keisha Espinoza Authenticated and [facility]
--- NOTE | 2022-08-11 08:31 | XR_ITS ---
FINAL REPORT CLINICAL HISTORY: Left chest pain after a fall FINDINGS: LEFT RIB SERIES 3 views of the left ribs show no acute, displaced fractures. There are chronic left 7th, 8th, and 9th lateral rib fractures. There is no pneumothorax. Frontal chest radiograph is unremarkable. IMPRESSION: No acute, displaced rib fractures. No pneumothorax. Reviewed, Interpreted and Dictated by Abe Saucedo III, MD Transcribed by Keisha Espinoza Authenticated and . [facility]
--- NOTE | 2022-08-11 08:39 | PC.NURSE ---
SYLVIE HICKS at
--- NOTE | 2022-08-11 08:43 | CT_ITS ---
FINAL REPORT TECHNIQUE: Axial CT images were performed from the lung apices through the upper abdomen. Coronal reformats were submitted. This study was performed with techniques to keep radiation doses as low as reasonably achievable (ALARA). Individualized dose reduction techniques using automated exposure control or adjustment of mA and/or kV according to the patient's size were employed. CLINICAL HISTORY: Left-sided chest pain after a fall FINDINGS: There is no axillary adenopathy. There is no hilar or mediastinal mass or adenopathy. Heart size is normal. There is no pericardial or pleural effusion. There is mild scarring and mild bibasilar atelectasis. No suspicious infiltrate or nodule is identified on lung window images. There is no pneumothorax. Chronic left 8th and 9th rib fractures are noted. Limited images of the upper abdomen are unremarkable. IMPRESSION: No pneumothorax. Mild bibasilar atelectasis. Reviewed, Interpreted and Dictated by Abe Saucedo III, MD Transcribed by Keisha Espinoza Authenticated and . [facility]
--- NOTE | 2022-08-11 08:43 | XR_ITS ---
FINAL REPORT CLINICAL HISTORY: Left arm pain after a fall FINDINGS: LEFT FOREARM 2 views were obtained. There is no acute fracture or dislocation. The bones are osteopenic. There are mild degenerative changes. There is no soft tissue abnormality. IMPRESSION: No acute bony abnormality. Reviewed, Interpreted and Dictated by Abe Saucedo III, MD Transcribed by Keisha Espinoza Authenticated and [facility]
--- NOTE | 2022-08-11 08:43 | XR_ITS ---
FINAL REPORT CLINICAL HISTORY: Left foot pain after a fall COMPARISON: 02/23/2022 FINDINGS: LEFT FOOT Three views of the left foot demonstrate no acute fracture or dislocation. There are mild degenerative changes. The bones are osteopenic. The soft tissues are unremarkable. IMPRESSION: No acute bony abnormality. Reviewed, Interpreted and Dictated by Abe Saucedo III, MD Transcribed by Keisha Espinoza Authenticated and [facility]
--- NOTE | 2022-08-11 08:45 | HMH.EDGENADL ---
Discharge Plan Disposition Patient Disposition: Home, Self-Care Condition: Good Chief Complaint: Fall Prescriptions Prescriptions: No Action acetaminophen 325 mg capsule 325 mg PO QID PRN calcium citrate 200 mg (950 mg) tablet 200 mg PO BID ICaps [id number] [id number]-[id number]-unit tablet extended release 1 tab PO BID meclizine 12.5 mg tablet 12.5 mg PO TID metoprolol succinate 25 mg tablet extended release 24 hr 12.5 mg PO DAILY Myrbetriq 50 mg tablet extended release 24 hr 50 mg PO DAILY rosuvastatin 5 mg tablet 5 mg PO DAILY cholecalciferol (vitamin D3) 10 mcg (400 unit) capsule 10 mcg PO DAILY prednisone 5 mg tablet 5 mg PO BID Label Comments: TAKE 1 TABLET BY MOUTH TWICE DAILY WITH MEALS timolol maleate 0.5 % drops 1 drp Eye-Both DAILY diclofenac sodium 1 % gel 4 g topical QID PRN (Reason: pain ) 30 Days Qty: 100 2RF Rx Instructions: apply to single, ankle, foot; for foot includes sole/toes/top of foot potassium chloride 10 mEq tablet extended release 10 meq PO Label Comments: TAKE 1 TABLET BY MOUTH TWICE DAILY docusate sodium 100 mg capsule PO Label Comments: TAKE 1 CAPSULE BY MOUTH TWICE DAILY levothyroxine 50 MCG tablet 50 mcg PO DAILY rosuvastatin 5 MG tablet 5 mg PO HS potassium chloride 10 MEQ tablet,ER particles/crystals 10 meq PO BID lisinopril 20 MG tablet 20 mg PO DAILY Activity Restrictions/Add. Instructions Additional Instructions/Restrictions: At this time was felt you are safe to be discharged home. If new or worsening symptoms please not hesitate to return the emergency department. Please follow-up with your family doctor within 7 to 10 days to assess for suture removal. If signs of infection please return for immediate evaluation. Please leave your arm wrapped today, it is okay to unwrap it tomorrow. Clinical Impressions Clinical Impression: Fall, Lacerations of multiple sites of left arm Discharge ED Provider: Jared Martel General Adult HPI General Chief complaint: Fall Stated complaint: Fall Time Seen by Provider: 08/11/22 08:45 History of Present Illness HPI narrative: Patient is a 87-year-old female with past medical history of uncontrolled hypertension, previous hypokalemia who presents emergency department for evaluation of traumatic injury sustained in a fall. Patient reportedly suffered a ground-level fall after standing up from voiding a few hours prior to arrival. She struck her left head and left thorax in the fall. She is currently complaining of left thoracic cage pain. EMS discovered multiple skin tears of her left forearm, no other acute complaints at this time. Related Data Home Medications Medication Instructions Recorded Confirmed levothyroxine 50 mcg tablet 50 mcg PO DAILY thyroid 06/25/19 05/30/22 potassium chloride 10 mEq 10 meq PO BID Supplement 06/25/19 05/30/22 tablet,extended release(part/cryst) rosuvastatin 5 mg tablet 5 mg PO HS cholesterol 06/25/19 05/30/22 lisinopril 20 mg tablet 20 mg PO DAILY Hypertension 11/27/20 05/30/22 acetaminophen 325 mg capsule 325 mg PO QID PRN 02/24/21 05/30/22 calcium citrate 200 mg (950 mg) 200 mg PO BID 02/24/21 05/30/22 tablet cholecalciferol (vitamin D3) 10 10 mcg PO DAILY 02/24/21 05/30/22 mcg (400 unit) capsule meclizine 12.5 mg tablet 12.5 mg PO TID 02/24/21 05/30/22 metoprolol succinate 25 mg 12.5 mg PO DAILY 02/24/21 05/30/22 tablet,extended release 24 hr mirabegron 50 mg tablet,extended 50 mg PO DAILY 02/24/21 05/30/22 release 24 hr (Myrbetriq) rosuvastatin 5 mg tablet 5 mg PO DAILY 02/24/21 05/30/22 [id number]-min 1 tab PO BID 02/24/21 05/30/22 3,300 unit-5 mg-200mg-75 unit tablet ER (ICaps) docusate sodium 100 mg capsule ea PO 05/16/21 05/30/22 potassium chloride 10 mEq 10 meq PO 05/16/21 05/30/22 tablet,extended release predni
[2022-08-11 08:58] LABS: Basophils % 0.5 % (0.1-2.0); Chloride 96 mmol/L (98-107); Eosinophils # 0.1 K/mm3 (0.0-0.4); Eosinophils % 1.4 % (0.1-12.0); Hemoglobin 12.4 g/dL (12.2-16.2); Lymphocytes # 1.2 K/mm3 (0.7-4.5); Lymphocytes % 18.2 % (10-50); Mean Corpuscular HGB Conc 32.6 g/dL (31.8-35.4); Mean Corpuscular Hemoglobin 30.1 pg (27.0-31.2); Mean Corpuscular Volume 92.5 fl (81-99); Mean Platelet Volume 7.5 fl (7.4-10.4); Monocytes # 0.5 K/mm3 (0.1-1.0); Monocytes % 7.6 % (1.7-9.3); Neutrophils # 4.8 K/mm3 (1.8-7.8); Neutrophils % 72.2 % (37.0-80.0); Platelet Count 392 K/mm3 (142-424); Potassium 3.9 mmoL/L (3.5-5.1); Red Blood Count 4.11 M/mm3 (4.20-5.40); Red Cell Distribution Width 14.4 % (11.5-17.5); Sodium 131 mmol/L (136-145); White Blood Count 6.7 K/mm3 (4.8-10.8)
[2022-08-11 09:01] LABS: Anion Gap 8.9 mEq/L (5-15); Blood Urea Nitrogen 13 mg/dl (7-17); Calcium 8.8 mg/dl (8.4-10.2); Carbon Dioxide 30 mmol/L (22.0-30.0); Creatinine Clearance Estimated 28 mL/min (50-200); Estimated Glomerular Filt Rate 117 ml/min (>60); GFR (African American) 142 ML/MIN (>60); Glucose 108 mg/dl (74-100)
--- NOTE | 2022-08-11 09:04 | ECG_ITS ---
APPROVED REPORT Exam: Resting ECG HR:68 bpm ECG Measurements Heart Rate 68 AXES MD 169 P 85 QRSd 82 QRS 68 QT 394 T 84 QTc 412 Conclusion SINUS RHYTHM NORMAL ECG UNCONFIRMED REPORT Electronically signed by : Sina Li MD 08/11/2022 14:25:32
--- NOTE | 2022-08-11 09:24 | PC.NURSE ---
pt gone to ct
--- NOTE | 2022-08-11 10:36 | PC.NURSE ---
Wound irrigated with Hibiclens/Saline Irrigation. Pt tolerated well. Lidotopical applied.
--- NOTE | 2022-08-11 14:18 | PC.NURSE ---
called to [employer] material [employer] , eta 23-30minutes
--- NOTE | 2022-08-11 14:32 | PC.NURSE ---
Patient ambulating independently without assistance.
== END 2022-08-11 15:25 | disposition home or self-care (01) ==
PROVIDERS: Emergency Provider Emergency Medicine
DX: R07.81 Pleurodynia (principal); S51.812A Laceration without foreign body of left forearm, initial encounter; Z23 Encounter for immunization; W18.30XA Fall on same level, unspecified, initial encounter
CPT/HCPCS: 12001; 70450; 71101; 71250; 72125; 73090; 73620; 80048; 85025; 90471; 90715; 93005; 96372; 99285

== ENCOUNTER 2023-02-01 15:00 | Outpatient (RCR) | payer MEDICARE, SELFPAY | END 2023-02-01 16:15 | disposition home or self-care (01) | LOC: PT 15:00 | PROVIDERS: PCP Family Medicine; Visit Provider Family Medicine | DX: M62.81 Muscle weakness (generalized) (principal); R26.89 Other abnormalities of gait and mobility | CPT/HCPCS: 97110; 97163; 97530 ==

== ENCOUNTER 2023-02-28 15:08 | Emergency (ER) | payer MEDICARE, SELFPAY ==
[2023-02-28 15:11] VITALS: BP 190/87; PULSE 77; RESP 16; TEMP 36.8; O2SAT 96; BMI 17.9
--- NOTE | 2023-02-28 15:12 | HMH.EDGENADL ---
Discharge Plan Disposition Patient Disposition: Home, Self-Care Prescriptions Prescriptions: No Action acetaminophen 325 mg capsule 325 mg PO QID PRN calcium citrate 200 mg (950 mg) tablet 200 mg PO BID ICaps [id number] qsbe-cw-wx-unit tablet extended release 1 tab PO BID meclizine 12.5 mg tablet 12.5 mg PO TID metoprolol succinate 25 mg tablet extended release 24 hr 12.5 mg PO DAILY Myrbetriq 50 mg tablet extended release 24 hr 50 mg PO DAILY rosuvastatin 5 mg tablet 5 mg PO DAILY cholecalciferol (vitamin D3) 10 mcg (400 unit) capsule 10 mcg PO DAILY prednisone 5 mg tablet 5 mg PO BID Patient Comments: TAKE 1 TABLET BY MOUTH TWICE DAILY WITH MEALS timolol maleate 0.5 % drops 1 drp Eye-Both DAILY diclofenac sodium 1 % gel 4 g topical QID PRN (Reason: pain ) 30 Days Qty: 100 2RF Rx Instructions: apply to single, ankle, foot; for foot includes sole/toes/top of foot potassium chloride 10 mEq tablet extended release 10 meq PO Patient Comments: TAKE 1 TABLET BY MOUTH TWICE DAILY docusate sodium 100 mg capsule PO Patient Comments: TAKE 1 CAPSULE BY MOUTH TWICE DAILY levothyroxine 50 MCG tablet 50 mcg PO DAILY rosuvastatin 5 MG tablet 5 mg PO HS potassium chloride 10 MEQ tablet,ER particles/crystals 10 meq PO BID lisinopril 20 MG tablet 20 mg PO DAILY Referrals Follow up/Referrals: Cassandra Lara [Primary Care Provider] - See instructions Activity Restrictions/Add. Instructions Additional Instructions/Restrictions: Please follow-up with your primary care provider. Please return to the emergency department if you develop any new or worsening symptoms or become concerned for your health. Continue wound care as discussed at home. Clinical Impressions Clinical Impression: Vertigo, Skin tear of hand without complication, Hypertension Discharge ED Provider: Alexsander Beckham General Adult HPI General Chief complaint: Fall Stated complaint: AO fall 02/21, lac on left arm Time Seen by Provider: 02/28/23 15:12 History of Present Illness HPI narrative: 87-year-old female, history of chronic vertigo presents with skin tear to the dorsum of her left hand after a fall 1 week ago. She has been using Neosporin at home, but presents for further evaluation due to persistent pain. She reports no fevers at home. Denies any purulent drainage. She reports that her dizziness is stable from baseline and is being cared for by her primary care doctor. She reports that she was putting in eyedrops when she felt dizzy and sat down quickly in a chair. As she sat down she scraped her hand. She denies hitting her head, denies loss of consciousness. Related Data Home Medications Medication Instructions Recorded Confirmed levothyroxine 50 mcg tablet 50 mcg PO DAILY thyroid 06/25/19 01/04/23 potassium chloride 10 mEq 10 meq PO BID Supplement 06/25/19 01/04/23 tablet,extended release(part/cryst) rosuvastatin 5 mg tablet 5 mg PO HS cholesterol 06/25/19 01/04/23 lisinopril 20 mg tablet 20 mg PO DAILY Hypertension 11/27/20 01/04/23 acetaminophen 325 mg capsule 325 mg PO QID PRN 02/24/21 01/04/23 calcium citrate 200 mg (950 mg) 200 mg PO BID 02/24/21 01/04/23 tablet cholecalciferol (vitamin D3) 10 10 mcg PO DAILY 02/24/21 01/04/23 mcg (400 unit) capsule meclizine 12.5 mg tablet 12.5 mg PO TID 02/24/21 01/04/23 metoprolol succinate 25 mg 12.5 mg PO DAILY 02/24/21 01/04/23 tablet,extended release 24 hr mirabegron 50 mg tablet,extended 50 mg PO DAILY 02/24/21 01/04/23 release 24 hr (Myrbetriq) rosuvastatin 5 mg tablet 5 mg PO DAILY 02/24/21 01/04/23 zosF-T5-P-L-lfjodi-otuagdq-min 1 tab PO BID 02/24/21 01/04/23 3,300 unit-5 mg-200mg-75 unit tablet ER (ICaps) docusate sodium 100 mg capsule ea PO 05/16/21 01/04/23 potassium chloride 10 mEq 10 meq PO 05/16/21 01/04/23 tablet,extended rel
--- NOTE | 2023-02-28 15:23 | XR_ITS ---
FINAL REPORT CLINICAL HISTORY: trauma FINDINGS: Left hand Three views were obtained. There is no acute fracture or dislocation. There are moderately advanced hypertrophic changes at the DIP and PIP joints. There are moderate hypertrophic changes at the basilar joint. No soft tissue abnormality is identified. IMPRESSION: Degenerative changes as detailed above. Reviewed, Interpreted and Dictated by Filemon Grimes MD Transcribed by Olga Lidia Bear Authenticated and [facility]
[2023-02-28 16:22] VITALS: BP 163/73; PULSE 64; RESP 19; TEMP 36.7
== END 2023-02-28 16:23 | disposition home or self-care (01) ==
PROVIDERS: Emergency Provider Emergency Medicine; PCP Family Medicine
DX: S61.402A Unspecified open wound of left hand, initial encounter (principal); R42 Dizziness and giddiness; I10 Essential (primary) hypertension; E78.5 Hyperlipidemia, unspecified; D50.9 Iron deficiency anemia, unspecified; W22.8XXA Striking against or struck by other objects, initial encounter
CPT/HCPCS: 73130; 99283

== ENCOUNTER 2023-06-02 14:15 | Emergency (ER) | payer MEDICARE, SELFPAY ==
[2023-06-02 14:16] VITALS: BP 176/81; PULSE 77; RESP 15; TEMP 36.7; O2SAT 95; BMI 17.7
--- NOTE | 2023-06-02 14:35 | CT_ITS ---
PROCEDURE INFORMATION: Exam: CT Lumbar Spine Without Contrast Exam date and time: 06/02/2023 2:49 PM Age: 88 years old Clinical indication: Injury or trauma; Fall; Blunt trauma (contusions or hematomas); Additional info: Fall, low midline pain TECHNIQUE: Imaging protocol: Computed tomography of the lumbar spine without contrast. Radiation optimization: All CT scans at this facility use at least one of these dose optimization techniques: automated exposure control; mA and/or kV adjustment per patient size (includes targeted exams where dose is matched to clinical indication); or iterative reconstruction. COMPARISON: CT LUMBAR SPINE WO CON 11/25/2020 8:13 AM FINDINGS: Bones/joints: There is preservation of vertebral alignment. Diffuse osteopenia. Acute, mildly displaced superior endplate fractures at L4 and L5 vertebrae. There is less than 50% height loss. The posterior cortex is intact. Healed sacral fracture noted. Vasculature: The aorta demonstrates mild atherosclerotic calcification. Soft tissues: Unremarkable. IMPRESSION: Acute, mildly displaced superior endplate fractures at L4 and L5 vertebrae. The posterior cortex is intact.
--- NOTE | 2023-06-02 14:35 | CT_ITS ---
PROCEDURE INFORMATION: Exam: CT Pelvis Without Contrast; Skeletal Exam date and time: 06/02/2023 2:52 PM Age: 88 years old Clinical indication: Injury or trauma; Fall; Blunt trauma (contusions or hematomas); Right; Hip; Additional info: Fall, midline pain TECHNIQUE: Imaging protocol: Computed tomography of the pelvis without contrast. Exam focused on the skeleton. Radiation optimization: All CT scans at this facility use at least one of these dose optimization techniques: automated exposure control; mA and/or kV adjustment per patient size (includes targeted exams where dose is matched to clinical indication); or iterative reconstruction. COMPARISON: CR XR PELVIS 1-2V 06/02/2023 2:50 PM FINDINGS: Bones/joints: Status post right hip arthroplasty. Photon starvation and streaky artifact from surgical hardware slightly obscures the assessment of the surrounding structures. No hardware-related complication noted. Traversing screws in the right femur. Chronic right femoral neck fracture noted. No acute fracture. impresion. Sacroiliac joints are intact. Pubic rami are intact. For findings in the lumbar spine, please refer to the separately dictated lumbar spine CT report under a separate accession number. Soft tissues: Unremarkable. IMPRESSION: No acute fracture or dislocation
--- NOTE | 2023-06-02 14:35 | XR_ITS ---
PROCEDURE INFORMATION: Exam: XR Pelvis Exam date and time: 06/02/2023 2:50 PM Age: 88 years old Clinical indication: Injury or trauma; Fall; Blunt trauma (contusions or hematomas); Right; Hip; Additional info: Fall, b/l hip pain TECHNIQUE: Imaging protocol: Radiologic exam of the pelvis. Views: 1 or 2 view. COMPARISON: CR XR HIP LT 2-3V W/PELVIS 06/14/2021 4:50 PM FINDINGS: Bones/joints: Diffuse osteopenia. Status post right hip arthroplasty. No hardware-related complication noted. Fixation screws in the right femur noted. No visible fracture or dislocation. Soft tissues: Unremarkable. IMPRESSION: Status post right hip arthroplasty. No visible fracture or dislocation.
--- NOTE | 2023-06-02 14:36 | XR_ITS ---
PROCEDURE INFORMATION: Exam: XR Left Wrist Exam date and time: 06/02/2023 2:50 PM Age: 88 years old Clinical indication: Pain; Wrist; Left; Additional info: Dorsal wrist pain TECHNIQUE: Imaging protocol: Radiologic exam of the left wrist. Views: 3 or more views. COMPARISON: CR XR HAND LT MIN 3V 02/28/2023 3:24 PM FINDINGS: Bones/joints: Diffuse osteopenia. No visible fracture or dislocation. 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 Soft tissues: Normal. IMPRESSION: No visible fracture or dislocation.
--- NOTE | 2023-06-02 14:38 | HMH.EDGENADL ---
Discharge Plan Disposition Patient Disposition: Home, Self-Care Condition: Good Prescriptions Prescriptions: No Action acetaminophen 325 mg capsule 325 mg PO QID PRN calcium citrate 200 mg (950 mg) tablet 200 mg PO BID ICaps [id number] etxy-qu-ow-unit tablet extended release 1 tab PO BID meclizine 12.5 mg tablet 12.5 mg PO TID metoprolol succinate 25 mg tablet extended release 24 hr 12.5 mg PO DAILY Myrbetriq 50 mg tablet extended release 24 hr 50 mg PO DAILY rosuvastatin 5 mg tablet 5 mg PO DAILY cholecalciferol (vitamin D3) 10 mcg (400 unit) capsule 10 mcg PO DAILY prednisone 5 mg tablet 5 mg PO BID Patient Comments: TAKE 1 TABLET BY MOUTH TWICE DAILY WITH MEALS timolol maleate 0.5 % drops 1 drp Eye-Both DAILY diclofenac sodium 1 % gel 4 g topical QID PRN (Reason: pain ) 30 Days Qty: 100 2RF Rx Instructions: apply to single, ankle, foot; for foot includes sole/toes/top of foot potassium chloride 10 mEq tablet extended release 10 meq PO Patient Comments: TAKE 1 TABLET BY MOUTH TWICE DAILY docusate sodium 100 mg capsule PO Patient Comments: TAKE 1 CAPSULE BY MOUTH TWICE DAILY levothyroxine 50 MCG tablet 50 mcg PO DAILY rosuvastatin 5 MG tablet 5 mg PO HS potassium chloride 10 MEQ tablet,ER particles/crystals 10 meq PO BID lisinopril 20 MG tablet 20 mg PO DAILY Referrals Follow up/Referrals: Cassandra Lara [Primary Care Provider] - See instructions Activity Restrictions/Add. Instructions Additional Instructions/Restrictions: Your workup today demonstrated superior endplate fractures of L4 and L5 near the front of your spine. These will be managed nonoperatively without surgery. Take Tylenol 1000 mg every 6 hours (4 times daily) and ibuprofen 400 mg every 6 hours (4 times daily) as needed with food and water to prevent GI upset and kidney damage. If you have chronic pain, talk to your family doctor about following up with Dr. Lion, our spine pain specialist. Clinical Impressions Clinical Impression: Closed fracture of lumbar spine without spinal cord lesion Qualifiers: Encounter type: initial encounter Qualified Code(s): S32.009A - Unspecified fracture of unspecified lumbar vertebra, initial encounter for closed fracture Discharge ED Provider: Sami Cordon General Adult HPI <Jared Martel MD - Last Filed: 06/02/23 14:41> General Chief complaint: Fall Stated complaint: FALL Time Seen by Provider: 06/02/23 14:19 Mode of Arrival: EMS Source of Information: Patient and EMS Limitations: No Limitations Description of Symptoms (Recalled from ER Triage Doc. by RN): 88 yo F presents to ED for fall on 05/30. pt reports she was waiting by the car for her to open the door to go inside. pt reports she fell backwards and fell onto the ground hitting her hips, and reports she also hit her shoulders on the car. History of Present Illness HPI narrative: Patient is a 88-year-old female that is dependent on a walker who presents emergency department for evaluation of traumatic injury sustained in a fall. Patient rarely ventures out to the store with her for which they have been 68 years and they live alone and largely complete her activities of daily living with some assistance from family and friends. On the way back patient was standing with her walker while they were unlocking the door to get into the house when she suffered a fall backwards onto her buttocks and lower back. Denies hitting her head, no loss of consciousness, no blood thinners. She is complaining of bilateral posterior hip pain and low back pain. She has been ambulatory since however due to persistent pain she presents here for continued evaluation. Related Data Home Medications Medication Instructions Recorded Confirmed levothyroxine 50 mcg tablet 50 mcg PO DAILY thyroid 06/25/19 03/29/23 potassium chloride 10 mEq 10 meq PO BID Supplement 06/25/19 03/29/23 tablet,extended release(part/cryst) rosuvastatin 5 mg tablet 5 mg PO HS cholesterol 06/25/19 03/29/23 lisinopril 20 mg tablet 20 mg PO DAILY Hypertension 11/27/20 03/29/23 acetaminophen 325 mg capsule 325 mg PO QID PRN 02/24/21 03/29/23 calcium citrate 200 mg (950 mg) 200 mg PO BID 02/24/21 03/29/23 tablet cholecalciferol (vitamin D3) 10 10 mcg PO DAILY 02/24/21 03/29/23 mcg (400 unit) capsule meclizine 12.5 mg tablet 12.5 mg PO TID 02/24/21 03/29/23 metoprolol succinate 25 mg 12.5 mg PO DAILY 02/24/21 03/29/23 tablet,extended release 24 hr mirabegron 50 mg tablet,extended 50 mg PO DAILY 02/24/21 03/29/23 release 24 hr (Myrbetriq) rosuvastatin 5 mg tablet 5 mg PO DAILY 02/24/21 03/29/23 qvkE-W5-P-M-vcdfpm-nhqpfle-min 1 tab PO BID 02/24/21 03/29/23 3,300 unit-5 mg-200mg-75 unit tablet ER (ICaps) docusate sodium 100 mg capsule ea PO 05/16/21 03/29/23 potassium chloride 10 mEq 10 meq PO 05/16/21 03/29/23 tablet,extended release prednisone 5 mg tablet 5 mg PO BID 02/23/22 03/29/23 timolol maleate 0.5 % eye drops 1 drp Eye-Both DAILY 02/23/22 03/29/23 Previous Rx's Medication Instructions Recorded diclofenac sodium 1 % topical gel 4 g topical QID PRN pain 30 days 02/23/22 #100 grams Allergies Allergy/AdvReac Type Severity Reaction Status Date / Time nitrofurantoin Allergy Verified 03/29/23 13:54 PFS <Jared Martel MD - Last Filed: 06/02/23 14:41> [facility] Disclaimer: The information contained in this section may have been updated after the patient was seen, as this information can be updated by other users. Medical History History of hypertension Hyperlipidemia Iron deficiency anemia Social History Smoking Status: Never smoker alcohol intake: never current occupational status: retired Travel in the last 8 weeks: None household members: spouse housing: house education level: high school current occupational exposures/hazards: No caffeine: Yes <Jared Martel MD - Last Filed: 06/02/23 14:41> ROS Obtained: Yes Systems reviewed as appropriate & no additional complaints except as documented Physical Exam <Jared Martel MD - Last Filed: 06/02/23 14:41> General General appearance: alert and in no apparent distress Head Head exam: atraumatic and normocephalic Eye Eye exam: Present PERRL and EOMI ENT ENT exam: Present mucous membranes moist Neck Neck exam: Present normal inspection Chest Chest inspection: Present normal inspection and symmetric chest wall rise Respiratory Respiratory exam: Present normal lung sounds bilaterally; Absent respiratory distress Cardiovascular Cardiovascular exam: Present regular rate and normal rhythm Abdominal Exam Abdominal exam: Present soft; Absent tenderness Extremities Exam Extremities exam: Present normal inspection and other (Tenderness bilateral hips, mild. Tenderness left dorsal wrist.) Back Exam Back exam: Present other (Low lumbar, sacral tenderness) Neurological Exam Neurological exam: Present alert Psychiatric Psychiatric exam: Present normal affect Skin Skin exam: Present warm and dry Medical Decision Making <Jared Martel MD - Last Filed: 06/02/23 14:41> Andrew Inquiry Pt receiving controlled substance: No Vital Signs: 06/02/23 14:16 06/02/23 15:05 Temperature 98.1 F Temperature Source Oral Pulse Rate 70 Pulse Rate [Left Radial] 77 Respiratory Rate 15 Blood Pressure 157/76 H Blood Pressure [Right Arm] 176/81 H Blood Pressure Mean [Right Arm] 112 02 Sat by Pulse Oximetry 95 96 Oxygen Delivery Method Room Air Lab Data Lab Results 06/02/23 15:14: WBC 8.3, RBC 4.19 L, Hgb 12.7, Hct 38.2, MCV 91.2, MCH 30.4, MCHC 33.3, RDW 15.1, Plt Count 259, MPV 7.6, Neut % (Auto) 75.8, Lymph % (Auto) 15.3, [place] % (Auto) 7.8, Eos % (Auto) 0.7, Baso % (Auto) 0.3, Neut # (Auto) 6.3, Lymph # (Auto) 1.3, [place] # (Auto) 0.7, Eos # (Auto) 0.1, Baso # (Auto) 0.0, Sodium 127 L, Potassium 4.0, Chloride 94 L, Carbon Dioxide 32 H, Anion Gap 5.0, BUN 11, Creatinine 0.50 L, Estimated Creat Clear 26, Estimated GFR 117, Est GFR ( Amer) 142, Glucose 102 H, Calcium 8.5 06/02/23 15:14 06/02/23 15:14 Orders (Tests/Meds): ED MEDICATIONS Discontinued Medications Generic Name Dose Route Start Last Admin Trade Name Freq PRN Reason Stop Dose Admin Acetaminophen 1,000 mg 06/02/23 14:35 06/02/23 14:50 Acetaminophen 500mg Tab PO 06/02/23 14:36 Not Given ONCE ONE ORDERS Category Date Time Status CT bony pelvis Stat Cat Scan 06/02/23 14:[address] lumbar spine wo con Stat Cat Scan 06/02/23 14:35 Completed Pelvis XR 1-2 views [XR pelvis 1-2V] Stat Exams 06/02/23 14:35 Completed Wrist XR left minimum 3 views [XR wrist LT min 3V] Stat Exams 06/02/23 14:36 Completed BMP [Basic Metabolic Panel] Stat Lab 06/02/23 15:14 Completed CBC w/Auto Diff [Complete Blood Count Auto Diff] Stat Lab 06/02/23 15:14 Completed Medical Decision Narrative: In summary patient is a 88-year-old female with past medical history described above who presents emergency department for evaluation of traumatic injury sustained in a fall. Patient is hemodynamically stable and nontoxic-appearing upon arrival, afebrile. Differential diagnosis includes fracture, musculoskeletal strain, among others. Workup will be conducted with hematologic labs, plain film left wrist, pelvis. CT lumbar spine and bony pelvis will be obtained. Workup largely pending at time of transfer of care to the oncoming physician, Dr. Cordon. <Sami Cordon MD - Last Filed: 06/02/23 15:47> Vital Signs: 06/02/23 14:16 06/02/23 15:05 Temperature 98.1 F Temperature Source Oral Pulse Rate 70 Pulse Rate [Left Radial] 77 Respiratory Rate 15 Blood Pressure 157/76 H Blood Pressure [Right Arm] 176/81 H Blood Pressure Mean [Right Arm] 112 02 Sat by Pulse Oximetry 95 96 Oxygen Delivery Method Room Air Lab Data Lab Results 06/02/23 15:14: WBC 8.3, RBC 4.19 L, Hgb 12.7, Hct 38.2, MCV 91.2, MCH 30.4, MCHC 33.3, RDW 15.1, Plt Count 259, MPV 7.6, Neut % (Auto) 75.8, Lymph % (Auto) 15.3, [place] % (Auto) 7.8, Eos % (Auto) 0.7, Baso % (Auto) 0.3, Neut # (Auto) 6.3, Lymph # (Auto) 1.3, [place] # (Auto) 0.7, Eos # (Auto) 0.1, Baso # (Auto) 0.0, Sodium 127 L, Potassium 4.0, Chloride 94 L, Carbon Dioxide 32 H, Anion Gap 5.0, BUN 11, Creatinine 0.50 L, Estimated Creat Clear 26, Estimated GFR 117, Est GFR ( Amer) 142, Glucose 102 H, Calcium 8.5 Orders (Tests/Meds): ED MEDICATIONS Discontinued Medications Generic Name Dose Route Start Last Admin Trade Name Freq PRN Reason Stop Dose Admin Acetaminophen 1,000 mg 06/02/23 14:35 06/02/23 14:50 Acetaminophen 500mg Tab PO 06/02/23 14:36 Not Given ONCE ONE ORDERS Category Date Time Status CT bony pelvis Stat Cat Scan 06/02/23 14:[address] lumbar spine wo con Stat Cat Scan 06/02/23 14:35 Completed Pelvis XR 1-2 views [XR pelvis 1-2V] Stat Exams 06/02/23 14:35 Completed Wrist XR left minimum 3 views [XR wrist LT min 3V] Stat Exams 06/02/23 14:36 Completed BMP [Basic Metabolic Panel] Stat Lab 06/02/23 15:14 Completed CBC w/Auto Diff [Complete Blood Count Auto Diff] Stat Lab 06/02/23 15:14 Completed Medical Decision Narrative: In summary patient is a 88-year-old female with past medical history described above who presents emergency department for evaluation of traumatic injury sustained in a fall. Patient is hemodynamically stable and nontoxic-appearing upon arrival, afebrile. Differential diagnosis includes fracture, musculoskeletal strain, among others. Workup will be conducted with hematologic labs, plain film left wrist, pelvis. CT lumbar spine and bony pelvis will be obtained. Workup largely pending at time of transfer of care to the oncoming physician, Dr. Cordon. Neris: I assume primary responsibility for this patient after signout from previous physician. On my evaluation, patient feeling well, no complaints of pain at this time. Patient states she is excited to go home, I relayed the news. Independent interpretation of imaging demonstrates no fracture or bony abnormality of her upper extremity, no hip fracture. CT bony pelvis with normal hip hardware, no evidence of occult fracture. CT of the lumbar spine with minor occult fractures of L4 and L5 superiorly, no significant height loss. Because patient at baseline without signs or symptoms of clinical decompensation, deemed appropriate for discharge. Results were relayed to patient who voiced understanding and were agreeable to outpatient management and follow up. At the time of discharge the patient was hemodynamically stable, tolerating PO, and mobilizing appropriately. Critical Care <Jared Martel MD - Last Filed: 06/02/23 14:41> Critical Care Time Critical Care Time: No
[2023-06-02 15:05] VITALS: BP 157/76; PULSE 70; O2SAT 96
[2023-06-02 15:26] LABS: Chloride 94 mmol/L (98-107)
[2023-06-02 15:27] LABS: Sodium 127 mmol/L (136-145)
[2023-06-02 15:28] LABS: Basophils % 0.3 % (0.1-2.0); Eosinophils # 0.1 K/mm3 (0.0-0.4); Eosinophils % 0.7 % (0.1-12.0); Hematocrit 38.2 % (37.0-47.0); Hemoglobin 12.7 g/dL (12.2-16.2); Lymphocytes # 1.3 K/mm3 (0.7-4.5); Lymphocytes % 15.3 % (10-50); Mean Corpuscular HGB Conc 33.3 g/dL (31.8-35.4); Mean Corpuscular Hemoglobin 30.4 pg (27.0-31.2); Mean Corpuscular Volume 91.2 fl (81-99); Mean Platelet Volume 7.6 fl (7.4-10.4); Monocytes # 0.7 K/mm3 (0.1-1.0); Monocytes % 7.8 % (1.7-9.3); Neutrophils # 6.3 K/mm3 (1.8-7.8); Neutrophils % 75.8 % (37.0-80.0); Platelet Count 259 K/mm3 (142-424); Red Blood Count 4.19 M/mm3 (4.20-5.40); Red Cell Distribution Width 15.1 % (11.5-17.5); White Blood Count 8.3 K/mm3 (4.8-10.8)
[2023-06-02 15:29] LABS: Blood Urea Nitrogen 11 mg/dl (7-17); Creatinine Clearance Estimated 26 mL/min (50-200); Estimated Glomerular Filt Rate 117 ml/min (>60); GFR (African American) 142 ML/MIN (>60)
[2023-06-02 15:30] LABS: Calcium 8.5 mg/dl (8.4-10.2); Carbon Dioxide 32 mmol/L (22.0-30.0); Glucose 102 mg/dl (74-100)
[2023-06-02 16:47] VITALS: BP 157/76; PULSE 89; RESP 18; TEMP 36.7
== END 2023-06-02 16:48 | disposition home or self-care (01) ==
PROVIDERS: Emergency Medicine; Emergency Provider Emergency Medicine; PCP Family Medicine
DX: S32.040A Wedge compression fracture of fourth lumbar vertebra, initial encounter for closed fracture (principal); S32.050A Wedge compression fracture of fifth lumbar vertebra, initial encounter for closed fracture; E87.1 Hypo-osmolality and hyponatremia; W18.39XA Other fall on same level, initial encounter; I10 Essential (primary) hypertension; E78.5 Hyperlipidemia, unspecified
CPT/HCPCS: 72131; 72170; 72192; 73110; 80048; 85025; 99285

== ENCOUNTER → 2023-06-06 12:53 | Outpatient (POV) | payer MEDICARE, SELFPAY ==
[2023-06-06 14:05] VITALS: BP 162/65; PULSE 68; RESP 18; O2SAT 97; BMI 17.7
--- NOTE | 2023-06-06 14:28 | A.OFFVIS_ITS ---
HPI Data of Consult Patient: new to practice Consult date: 06/06/23 Requesting Physician: Anu Humphrey APRN Consult Narrative Reason for consult: Low back pain, bilateral leg pain, acute compression fra cture History of present illness: Ms. Méndez is a 88 year old female who presents today as a new patient. She is a referral from the [facility] ER. Today she rates her pain a 10 out of 10. Patient states her pain is all in her low back with radiating symptoms to her lower extremities. Patient states that around 26 May she was getting out of her vehicle and had gone up to her porch where there is 1 step while holding onto her walker she felt like she blacked out. Patient states this has happened in the past and often times is related to being very tired or hungry. She states when she blacked out she did fall back into the car and then did get up thinking she did not do much damage. She states her was able to help her into the house and they did manage over the next few days however she was experiencing worsening pain and presented to the ER for evaluation. Patient states it was then that they did the imaging and diagnosed her with a fracture in her lumbar vertebra. She does describe this as a constant achy, throbbing sensation that is worse with increased activity or ambulation. She states the pain does interfere with her ability perform activities of daily living such as cooking and cleaning. Patient states that the ER did not give her any medications and just recommended she take Tylenol. Patient states that the pain has been more unbearable. She is interested in any help we may be able to provide. Patient does state in the past she did have leg pain related to previous bilateral hip surgery however this pain is different. Patient does also state about 5 years or more ago she did have a laminectomy for bulging disc. Patient states when she did do the imaging in the ER she had significant worsening pain due to the prolonged positioning. Patient does also state that it is really just her and her. She does state they have 3 daughters however 1 , 1 lives in [place] but has health issues herself and 1 other daughter they do not really have contact with. She is not on any scheduled medications. Her Andrew has been reviewed and is appropriate. CC: Anu Humphrey APRN [facility] Disclaimer: The information contained in this section may have been updated after the patient was seen, as this information can be updated by other users. Medical History (Updated 06/06/23 @ 14:35 by Anu Humphrey APRN) History of hypertension Hyperlipidemia Iron deficiency anemia Surgical History (Updated 06/06/23 @ 14:06 by Sveta Alvarenga RN) History of hip surgery Family History (Updated 06/06/23 @ 14:06 by Sveta Alvarenga RN) Other Unknown family medical history Social History (Updated 06/06/23 @ 14:07 by Sveta Alvarenga RN) Smoking Status: Never smoker alcohol intake: never current occupational status: retired Travel in the last 8 weeks: None household members: spouse housing: house education level: high school current occupational exposures/hazards: No caffeine: Yes Review of Systems Review of Systems Review of systems:: pertinent systems reviewed and negative unless documented below Review of systems (narrative): Review of Systems: General: No recent weight changes, no fever, no sleep disturbances Respiratory: No cough, no shortness of air, no recurring pulmonary infections Cardiovascular/peripheral vascular: No chest pain, no palpitations, no edema, no shortness of breath Gastrointestinal: No new onset incontinence, normal bowel movements reported Genitourinary: No new onset incontinence Musculoskeletal: Low back pain, bilateral leg pain Psychiatric: [Normal mood/affect] Neurological: [Denies weakness in extremities], [denies balance issues] Meds Home Medications and Allergies Home Medications Medication Instructions Recorded Confirmed Type levothyroxine 50 mcg tablet 50 mcg PO DAILY thyroid 06/25/19 03/29/23 History potassium chloride 10 mEq 10 meq PO BID Supplement 06/25/19 03/29/23 History tablet,extended release(part/cryst) rosuvastatin 5 mg tablet 5 mg PO HS cholesterol 06/25/19 03/29/23 History lisinopril 20 mg tablet 20 mg PO DAILY Hypertension 11/27/20 03/29/23 History acetaminophen 325 mg capsule 325 mg PO QID PRN 02/24/21 03/29/23 History calcium citrate 200 mg (950 mg) 200 mg PO BID 02/24/21 03/29/23 History tablet cholecalciferol (vitamin D3) 10 10 mcg PO DAILY 02/24/21 03/29/23 History mcg (400 unit) capsule meclizine 12.5 mg tablet 12.5 mg PO TID 02/24/21 03/29/23 History metoprolol succinate 25 mg 12.5 mg PO DAILY 02/24/21 03/29/23 History tablet,extended release 24 hr mirabegron 50 mg tablet,extended 50 mg PO DAILY 02/24/21 03/29/23 History release 24 hr (Myrbetriq) rosuvastatin 5 mg tablet 5 mg PO DAILY 02/24/21 03/29/23 History [id number]-[id number]-H-xfjmnn-orbllpb-min 1 tab PO BID 02/24/21 03/29/23 History 3,300 unit-5 mg-200mg-75 unit tablet ER (ICaps) docusate sodium 100 mg capsule ea PO 05/16/21 03/29/23 History potassium chloride 10 mEq 10 meq PO 05/16/21 03/29/23 History tablet,extended release diclofenac sodium 1 % topical gel 4 g topical QID PRN pain 30 days 02/23/22 03/29/23 Rx #100 grams prednisone 5 mg tablet 5 mg PO BID 02/23/22 03/29/23 History timolol maleate 0.5 % eye drops 1 drp Eye-Both DAILY 02/23/22 03/29/23 History New Prescriptions to Start Prescriptions: Allergies Allergy/AdvReac Type Severity Reaction Status Date / Time nitrofurantoin Allergy Verified 03/29/23 13:54 Objective Narrative: Physical Exam: General: Alert and oriented x3, no acute distress, pleasant and cooperative Lungs: Respirations even and unlabored, symmetrical chest expansion Eyes: PERRL Musculoskeletal: Flexion and extension of lumbar [spine] somewhat guarded secondary to pain, [antalgic gait noted] Neurological: Speech clear, no gross sensory deficit Additional findings Additional findings: PROCEDURE INFORMATION: Exam: CT Lumbar Spine Without Contrast Exam date and time: 06/02/2023 2:49 PM Age: 88 years old Clinical indication: Injury or trauma; Fall; Blunt trauma (contusions or hematomas); Additional info: Fall, low midline pain TECHNIQUE: Imaging protocol: Computed tomography of the lumbar spine without contrast. Radiation optimization: All CT scans at this facility use at least one of these dose optimization techniques: automated exposure control; mA and/or kV adjustment per patient size (includes targeted exams where dose is matched to clinical indication); or iterative reconstruction. COMPARISON: CT LUMBAR SPINE WO CON 11/25/2020 8:13 AM FINDINGS: Bones/joints: There is preservation of vertebral alignment. Diffuse osteopenia. Acute, mildly displaced superior endplate fractures at L4 and L5 vertebrae. There is less than 50% height loss. The posterior cortex is intact. Healed sacral fracture noted. Vasculature: The aorta demonstrates mild atherosclerotic calcification. Soft tissues: Unremarkable. IMPRESSION: Acute, mildly displaced superior endplate fractures at L4 and L5 vertebrae. The posterior cortex is intact. Assessment and Plan *Assessment and plan (1) Degenerative disc disease, lumbar: Status: Acute Category: Medical Code(s): M51.36 - Other intervertebral disc degeneration, lumbar region (2) Lumbar radiculopathy: Status: Acute Category: Medical Code(s): M54.16 - Radiculopathy, lumbar region (3) Lumbar vertebral fracture: Status: Acute Qualifiers: Encounter type: subsequent encounter Lumbar vertebra fracture level: L4 Fracture morphology: other fracture Fracture healing: with routine healing Fracture type: closed Qualified Code(s): S32.048D - Other fracture of fourth lumbar vertebra, subsequent encounter for fracture with routine healing Category: Medical Code(s): S32.009A - Unspecified fracture of unspecified lumbar vertebra, initial encounter for closed fracture Plan Patient is experiencing significant pain in her low back and legs related to a recent fall that ultimately ended up with a endplate fracture of L4 and L5. I have discussed with the patient that I will order her a back brace to help add support and stabilization to her overall fracture. I will also order the patient Prospect 5 mg 3 times a day and provide a 1 month supply of this medication. I have discussed with the patient that she may benefit from a lumbar epidural steroid injection at this level. Risk and benefits were discussed with the patient and she would like to proceed forward with this plan of care. I have also discussed with the patient in future her imaging did not show the best and that I would like to do a MRI however due to her additional pain with prolonged positioning I have discussed that this is up to her. I did review over the possibility of a kyphoplasty procedure however due to her current situation with just her and her I do not believe this may be in her best interest due to not having additional support to help with her care. Patient will be scheduled for an LESI L4-L5 under fluoroscopy. Patient has been instructed to contact the clinic with any concerns before the next appointment. Dr. Lion has reviewed this note and agrees with this plan of care. This note was dictated using voice recognition software and make contain errors or omissions.
== END | disposition home or self-care (01) ==
PROVIDERS: Visit Provider Nurse Practitioner Family
DX: S32.048D Other fracture of fourth lumbar vertebra, subsequent encounter for fracture with routine healing; M51.16 Intervertebral disc disorders with radiculopathy, lumbar region
CPT/HCPCS: 99202; G0463

== ENCOUNTER 2023-10-16 11:09 | Outpatient (RCR) | payer MEDICARE, SELFPAY | END 2023-10-16 11:10 | disposition home or self-care (01) | LOC: PT 11:09 | PROVIDERS: Visit Provider Family Medicine | DX: R26.89 Other abnormalities of gait and mobility (principal) | CPT/HCPCS: 97163 ==

== ENCOUNTER 2023-11-03 21:28 | Emergency (ER) | payer MEDICARE, SELFPAY ==
[2023-11-03 21:28] VITALS: BP 209/97; PULSE 75; RESP 18; TEMP 36.9; O2SAT 97; BMI 19.5
[2023-11-03 22:00] VITALS: BP 184/69; PULSE 75; RESP 20; O2SAT 96
--- NOTE | 2023-11-03 22:15 | CT_ITS ---
PROCEDURE INFORMATION: Exam: CT Cervical Spine Without Contrast Exam date and time: 11/03/2023 10:38 PM Age: 88 years old Clinical indication: Injury or trauma; Fall; Concussion/head injury and laceration; Without foreign body; Additional info: Fall blood thinners posterior trauma TECHNIQUE: Imaging protocol: Computed tomography of the cervical spine without contrast. Radiation optimization: All CT scans at this facility use at least one of these dose optimization techniques: automated exposure control; mA and/or kV adjustment per patient size (includes targeted exams where dose is matched to clinical indication); or iterative reconstruction. COMPARISON: CT CERVICAL SPINE WO CON 08/11/2022 9:28 AM FINDINGS: Bones: Cervical vertebrae normal in height. No acute fracture. Grade 1 anterolisthesis from C3-T1. Levoconvex curvature of the cervicothoracic spine. Maintained craniocervical junction. Multilevel degenerative changes. Mild odontoid and basion erosive changes. Varying degrees of neural foraminal narrowing. No severe spinal canal stenosis. Lungs: Stable biapical pleural thickening and calcifications. Vasculature: Bilateral carotid artery calcifications. Soft tissues: Unremarkable. IMPRESSION: No acute osseous findings.
--- NOTE | 2023-11-03 22:15 | CT_ITS ---
PROCEDURE INFORMATION: Exam: CT Head Without Contrast Exam date and time: 11/03/2023 10:36 PM Age: 88 years old Clinical indication: Injury or trauma; Fall; Bleeding/hemorrhage and concussion/head injury and laceration; Scalp; Additional info: Fall blood thinners posterior trauma TECHNIQUE: Imaging protocol: Computed tomography of the head without contrast. Radiation optimization: All CT scans at this facility use at least one of these dose optimization techniques: automated exposure control; mA and/or kV adjustment per patient size (includes targeted exams where dose is matched to clinical indication); or iterative reconstruction. COMPARISON: CT HEAD/BRAIN WO CON 08/11/2022 9:25 AM FINDINGS: Brain: No acute intracranial hemorrhage, midline shift or mass effect. Diffuse brain parenchymal volume loss. Moderate hypodensities within the cerebral white matter most consistent with chronic small-vessel ischemic changes. Cerebral ventricles: Stable ventricular prominence. Paranasal sinuses: Visualized sinuses are unremarkable. No fluid levels. Mastoid air cells: Visualized mastoid air cells are well aerated. Bones: Unremarkable. No acute fracture. Soft tissues: Moderate right occipital scalp contusion/soft tissue swelling with associated small abrasion or laceration. IMPRESSION: 1. No acute intracranial findings. 2. Moderate right occipital scalp contusion/soft tissue swelling with associated small abrasion or laceration. No calvarial fracture.
--- NOTE | 2023-11-03 22:17 | HMH.EDGENADL ---
Discharge Plan Disposition Chief Complaint: Fall Prescriptions Prescriptions: No Action acetaminophen 325 mg capsule 325 mg PO QID PRN (Reason: Pain) calcium citrate 200 mg (950 mg) tablet 200 mg PO BID ICaps [id number],[id number] pevh-wb-et-unit tablet extended release 1 tab PO BID meclizine 12.5 mg tablet 12.5 mg PO TID metoprolol succinate 25 mg tablet extended release 24 hr 12.5 mg PO DAILY Myrbetriq 50 mg tablet extended release 24 hr 50 mg PO DAILY rosuvastatin 5 mg tablet 5 mg PO DAILY cholecalciferol (vitamin D3) 10 mcg (400 unit) capsule 10 mcg PO DAILY prednisone 5 mg tablet 5 mg PO BID Patient Comments: TAKE 1 TABLET BY MOUTH TWICE DAILY WITH MEALS timolol maleate 0.5 % drops 1 drp Eye-Both DAILY diclofenac sodium 1 % gel 4 g topical QID PRN (Reason: pain ) 30 Days Qty: 100 2RF Rx Instructions: apply to single, ankle, foot; for foot includes sole/toes/top of foot potassium chloride 10 mEq tablet extended release 10 meq PO DIRECTED Patient Comments: TAKE 1 TABLET BY MOUTH TWICE DAILY docusate sodium 100 mg capsule 1 ea PO DIRECTED Patient Comments: TAKE 1 CAPSULE BY MOUTH TWICE DAILY levothyroxine 50 MCG tablet 50 mcg PO DAILY rosuvastatin 5 MG tablet 5 mg PO HS potassium chloride 10 MEQ tablet,ER particles/crystals 10 meq PO BID lisinopril 20 MG tablet 20 mg PO DAILY hydrocodone-acetaminophen 5-325 mg tablet 1 tab PO TID Qty: 90 0RF Referrals Follow up/Referrals: Provider,Referral, MD [Primary Care Provider] - See instructions Discharge ED Provider: Jared Martel General Adult HPI General Chief complaint: Fall Stated complaint: Fall, lac to head and on blood thinners Time Seen by Provider: 11/03/23 22:00 Mode of Arrival: EMS Source of Information: Patient and EMS Limitations: No Limitations Description of Symptoms (Recalled from ER Triage Doc. by RN): Pt presents to ED via EMS for a lac to the back of head after a fall. Pt does take blood thinners but can not remember which ones. Pt is A&O*4 at this time. Family is on the way. History of Present Illness HPI narrative: Patient is a 88-year-old female with past medical history of frequent falls on antiplatelet therapy who presents emergency department for evaluation of traumatic injury sustained in a fall. History is obtained by patient at bedside. She was standing in the kitchen making coffee for the next morning for her and her when she fell backwards striking her head. She states that she has had episodes of losing consciousness multiple times over the years and this is similar to her previous episodes. Possible loss of consciousness today. She states she generally feels unwell over the last several days however cannot pinpoint exactly why, denies vomiting, chest pain, abdominal pain, dysuria, arthralgias. Besides her posterior head hurting she has no other complaints at this time. Denies chest pain, abdominal pain, extremity pain. Tetanus is up-to-date. Related Data Home Medications Medication Instructions Recorded Confirmed levothyroxine 50 mcg tablet 50 mcg PO DAILY thyroid 06/25/19 09/18/23 potassium chloride 10 mEq 10 meq PO BID Supplement 06/25/19 09/18/23 tablet,extended release(part/cryst) rosuvastatin 5 mg tablet 5 mg PO HS cholesterol 06/25/19 09/18/23 lisinopril 20 mg tablet 20 mg PO DAILY Hypertension 11/27/20 09/18/23 acetaminophen 325 mg capsule 325 mg PO QID PRN Pain 02/24/21 09/18/23 calcium citrate 200 mg (950 mg) 200 mg PO BID 02/24/21 09/18/23 tablet cholecalciferol (vitamin D3) 10 10 mcg PO DAILY 02/24/21 09/18/23 mcg (400 unit) capsule meclizine 12.5 mg tablet 12.5 mg PO TID 02/24/21 09/18/23 metoprolol succinate 25 mg 12.5 mg PO DAILY 02/24/21 09/18/23 tablet,extended release 24 hr mirabegron 50 mg tablet,extended 50 mg PO DAILY 02/24/21 09/18/23 release 24 hr (Myrbetriq) rosuvastatin 5 mg tablet 5 mg PO DAILY 02/24/21 09/18/23 [id number]-B-wtendl-rbayxcx-min 1 tab PO BID 02/24/21 09/18/23 3,300 unit-5 mg-200mg-75 unit tablet ER (ICaps) docusate sodium 100 mg capsule 1 ea PO DIRECTED BOWELS 05/16/21 09/18/23 potassium chloride 10 mEq 10 meq PO DIRECTED SUPPLIMENT 05/16/21 09/18/23 tablet,extended release prednisone 5 mg tablet 5 mg PO BID 02/23/22 09/18/23 timolol maleate 0.5 % eye drops 1 drp Eye-Both DAILY 02/23/22 09/18/23 Previous Rx's Medication Instructions Recorded diclofenac sodium 1 % topical gel 4 g topical QID PRN pain 30 days 02/23/22 #100 grams hydrocodone 5 mg-acetaminophen 325 1 tab PO TID #90 tabs 06/06/23 mg tablet Allergies Allergy/AdvReac Type Severity Reaction Status Date / Time nitrofurantoin Allergy Verified 09/18/23 14:01 [facility] Disclaimer: The information contained in this section may have been updated after the patient was seen, as this information can be updated by other users. Medical History History of hypertension Hyperlipidemia Iron deficiency anemia Surgical History History of hip surgery BOLIVAR. Family History Other Unknown family medical history Social History Smoking Status: Never smoker alcohol intake: never current occupational status: retired Travel in the last 8 weeks: None household members: spouse housing: house education level: high school current occupational exposures/hazards: No caffeine: Yes ROS Obtained: Yes Systems reviewed as appropriate & no additional complaints except as documented Physical Exam General General appearance: alert and in no apparent distress Head Head exam: normocephalic and other (Hematoma and wound over posterior scalp that is oozing blood, matted hair with blood is present, no arterial hemorrhage.) Eye Eye exam: Present PERRL ENT ENT exam: Present mucous membranes moist Neck Neck exam: Present normal inspection Chest Chest inspection: Present normal inspection and symmetric chest wall rise Respiratory Respiratory exam: Absent respiratory distress Cardiovascular Cardiovascular exam: Present regular rate and normal rhythm Abdominal Exam Abdominal exam: Present soft; Absent tenderness Extremities Exam Extremities exam: Present full ROM and other (Scattered solar purpura.); Absent tenderness Neurological Exam Neurological exam: Present alert and CN II-XII intact; Absent motor sensory deficit Psychiatric Psychiatric exam: Present normal affect Skin Skin exam: Present warm and dry Medical Decision Making Andrew Inquiry Pt receiving controlled substance: No Vital Signs: 11/03/23 21:28 11/03/23 22:00 Temperature 98.5 F Temperature Source Oral Pulse Rate 75 Pulse Rate [Left] 75 Respiratory Rate 18 20 Blood Pressure 184/69 H Blood Pressure [Right Arm] 209/97 H Blood Pressure Mean [Right Arm] 134 02 Sat by Pulse Oximetry 97 96 Oxygen Delivery Method Room Air Room Air Lab Data Lab Results 11/03/23 21:51: Urine Color Yellow, Urine Appearance Clear, Urine pH 7.5, Ur Specific [employer] 1.015, Urine Protein Negative, Urine Glucose (UA) Negative, Urine Ketones Negative, Urine Blood Trace-i, Urine Nitrate Negative, Urine Bilirubin Negative, Urine Urobilinogen 0.2, Ur Leukocyte Esterase 1+ A, Urine RBC None, Urine WBC 20-50, Ur Squamous Epith Cells 3-5, Urine Bacteria 1+ 11/03/23 22:26: WBC 6.2, RBC 4.16 L, Hgb 12.3, Hct 37.0, MCV 88.8, MCH 29.4, MCHC 33.1, RDW 16.0, Plt Count 490 H, MPV 7.9, Neut % (Auto) 80.2 H, Lymph % (Auto) 13.5, Wallace % (Auto) 5.1, Eos % (Auto) 0.5, Baso % (Auto) 0.7, Neut # (Auto) 5.0, Lymph # (Auto) 0.8, Wallace # (Auto) 0.3, Eos # (Auto) 0.0, Baso # (Auto) 0.0, Sodium 132 L, Potassium 3.8, Chloride 97 L, Carbon Dioxide 30, Anion Gap 8.8, BUN 12, Creatinine 0.60, Estimated Creat Clear 29, Estimated GFR 95, Est GFR ( Amer) 115, Glucose 116 H, Calcium 9.5, Magnesium 1.9, Total Bilirubin 0.3, AST 48 H, ALT 32, Alkaline Phosphatase 106, Total Protein 7.7 D, Albumin 4.1, Globulin 3.6 H, Albumin/Globulin Ratio 1.1 11/03/23 22:26 11/03/23 22:26 Orders (Tests/Meds): ED MEDICATIONS Discontinued Medications Generic Name Dose Route Start Last Admin Trade Name Freq PRN Reason Stop Dose Admin Cefdinir 300 mg 11/03/23 23:27 Cefdinir 300mg Capsule PO 11/03/23 23:28 ONCE ONE ORDERS Category Date Time Status CT cervical spine wo con Stat Cat Scan 11/03/23 22:[address] head/brain wo con Stat Cat Scan 11/03/23 22:15 Completed CBC w/Auto Diff [Complete Blood Count Auto Diff] Stat Lab 11/03/23 22:26 Completed CMP [Comprehensive Metabolic Panel] Stat Lab 11/03/23 22:26 Completed MG [Magnesium] Stat Lab 11/03/23 22:26 Completed UA [Urinalysis and Microscopic] Stat Lab 11/03/23 21:51 Completed Urine Culture Stat Micro 11/03/23 21:51 Received Medical Decision Narrative: In summary patient is a 88-year-old female past medical history described above who presents emergency department for evaluation traumatic injury sustained in fall. Patient is hemodynamically stable nontoxic-appearing upon arrival, afebrile. Obvious posterior scalp trauma. A c-collar will be initiated. Patient will undergo trauma survey with noncontrasted CT scan of the head CT of the cervical spine. Hematologic labs to be obtained. Tdap is up-to-date. Hematologic labs reviewed by me and are nonactionable. Urinalysis significant leukocyturia with bacteria which will be treated for infection with antibiotics. CT imaging shows no acute intracranial abnormality, moderate right occipital scalp hematoma. No calvarial fracture. CT cervical spine negative. Critical Care Critical Care Time Critical Care Time: No
[2023-11-03 22:21] LABS: Microscopic, Urine URINE MICROSCOPIC (MICROSCOPIC)
[2023-11-03 22:23] LABS: Appearance,Urine CLEAR (Clear); Bilirubin,Urine Negative (Negative); Blood, Urine TRACE-I (Negative); Color,Urine YELLOW (Yellow); Glucose,Urine (UA) Negative (Negative); Ketones,Urine Negative (Negative); Leukocyte Esterase,Urine 1+ (Negative); Nitrate,Urine Negative (Negative); PH,Urine 7.5 (5.0-8.5); Protein,Urine Negative (Negative); Specific Gravity, Urine 1.015 (1.005-1.030); Urobilinogen,Urine 0.2 EU/dl (0.2)
[2023-11-03 22:35] LABS: Basophils % 0.7 % (0.1-2.0); Eosinophils % 0.5 % (0.1-12.0); Hemoglobin 12.3 g/dL (12.2-16.2); Lymphocytes # 0.8 K/mm3 (0.7-4.5); Lymphocytes % 13.5 % (10-50); Mean Corpuscular HGB Conc 33.1 g/dL (31.8-35.4); Mean Corpuscular Hemoglobin 29.4 pg (27.0-31.2); Mean Corpuscular Volume 88.8 fl (81-99); Mean Platelet Volume 7.9 fl (7.4-10.4); Monocytes # 0.3 K/mm3 (0.1-1.0); Monocytes % 5.1 % (1.7-9.3); Neutrophils % 80.2 % (37.0-80.0); Platelet Count 490 K/mm3 (142-424); Red Blood Count 4.16 M/mm3 (4.20-5.40); White Blood Count 6.2 K/mm3 (4.8-10.8)
[2023-11-03 22:38] LABS: Chloride 97 mmol/L (98-107)
[2023-11-03 22:39] LABS: Potassium 3.8 mmoL/L (3.5-5.1); Sodium 132 mmol/L (136-145)
--- NOTE | 2023-11-03 22:40 | PC.NURSE ---
Pt to ct scan
[2023-11-03 22:41] LABS: Alanine Aminotransferase 32 U/L (12-78); Alkaline Phosphatase 106 U/L (38-126); Aspartate Amino Transferase 48 U/L (14-36); Bilirubin,Total 0.3 mg/dl (0.2-1.3); Blood Urea Nitrogen 12 mg/dl (7-17); Creatinine Clearance Estimated 29 mL/min (50-200); Estimated Glomerular Filt Rate 95 ml/min (>60); GFR (African American) 115 ML/MIN (>60)
[2023-11-03 22:42] LABS: Albumin Level 4.1 g/dl (3.5-5.0); Albumin/Globulin Ratio 1.1 (1.1-1.8); Anion Gap 8.8 mEq/L (5-15); Calcium 9.5 mg/dl (8.4-10.2); Carbon Dioxide 30 mmol/L (22.0-30.0); Globulin 3.6 g/dL (1.3-3.2); Glucose 116 mg/dl (74-100); Magnesium 1.9 mg/dl (1.6-2.3); Total Protein,Serum 7.7 g/dl (6.3-8.2)
[2023-11-03 22:51] LABS: Bacteria,Urine 1+ /lpf; WBC,Urine 20-50 #/hpf (0-3)
[2023-11-03 23:00] VITALS: PULSE 66; RESP 16; O2SAT 96
[2023-11-03 23:30] VITALS: PULSE 73; RESP 18; O2SAT 94
[2023-11-04] VITALS: PULSE 71; RESP 16; O2SAT 96
[2023-11-04] MEDS: CEFDINIR 300MG CAPSULE 300 MG PO (00:09)
[2023-11-04 00:30] VITALS: PULSE 66; RESP 18; O2SAT 98
[2023-11-04 01:00] VITALS: PULSE 63; RESP 18; O2SAT 96
--- NOTE | 2023-11-04 01:43 | PC.NURSE ---
This RN spoke with pt's . He is unable to drive to pick her up. This RN attempted to call patient's daughter and did not get an answer.
[2023-11-04 02:00] VITALS: PULSE 71; RESP 16; O2SAT 96
[2023-11-04 03:01] VITALS: BP 102/70; PULSE 82; RESP 14; TEMP 36.8; O2SAT 96
[2023-11-04] MEDS: ACETAMINOPHEN 500MG TAB 1000 MG PO (03:17)
== END 2023-11-04 06:12 | disposition home or self-care (01) ==
PROVIDERS: Emergency Medicine; Emergency Provider Emergency Medicine
DX: S01.01XA Laceration without foreign body of scalp, initial encounter (principal); N39.0 Urinary tract infection, site not specified; B96.89 Other specified bacterial agents as the cause of diseases classified elsewhere; E87.1 Hypo-osmolality and hyponatremia; W18.30XA Fall on same level, unspecified, initial encounter; I10 Essential (primary) hypertension; E78.5 Hyperlipidemia, unspecified
CPT/HCPCS: 12015; 70450; 72125; 80053; 81001; 83735; 85025; 87086; 99284

== ENCOUNTER 2024-03-20 22:31 | Observation (INO) | payer MEDICARE, SELFPAY ==
[2024-03-20 22:31] VITALS: BP 158/75; PULSE 80; RESP 17; TEMP 36.7; O2SAT 96; BMI 17.7
[2024-03-20 23:02] VITALS: BP 146/74; PULSE 82; O2SAT 97
[2024-03-20 23:30] VITALS: BP 132/63; PULSE 74; O2SAT 97
--- NOTE | 2024-03-20 23:57 | CT_ITS ---
PROCEDURE INFORMATION: Exam: CTA Chest With Contrast CTA Abdomen and Pelvis With Contrast Exam date and time: 03/21/2024 1:11 AM Age: 89 years old Clinical indication: Chest pressure; Abdominal pain; Acute; Additional info: Acute abd pain w/ near syncope TECHNIQUE: Imaging protocol: Computed tomographic angiography of the chest with contrast. Exam focused on the arteries. Computed tomographic angiography of the abdomen and pelvis with contrast. Exam focused on the arteries. 3D rendering (Not supervised by radiologist): MIP and/or 3D reconstructed images were created by the technologist. Radiation optimization: All CT scans at this facility use at least one of these dose optimization techniques: automated exposure control; mA and/or kV adjustment per patient size (includes targeted exams where dose is matched to clinical indication); or iterative reconstruction. Contrast material: ISOVUE; Contrast volume: 80 ml; Contrast route: INTRAVENOUS (IV); COMPARISON: 1. CT CHEST WO CON 08/11/2022 9:[address] BONY PELVIS 06/02/2023 2:52 PM FINDINGS: VASCULATURE: Pulmonary arteries: Normal. No pulmonary emboli. Aorta: No aortic aneurysm. No aortic dissection. Mild calcific atherosclerotic disease. Celiac trunk and mesenteric arteries: No occlusion or significant stenosis. Renal arteries: No occlusion or significant stenosis. Right iliac arteries: No occlusion or significant stenosis. Left iliac arteries: No occlusion or significant stenosis. CHEST: Lungs: There is biapical pleural plaquing. Linear densities anterior left lower lobe consistent with atelectasis and/or scarring. Left lung calcified granulomas are noted. Pleural spaces: Unremarkable. No pneumothorax. No pleural effusion. Heart: The heart is mildly enlarged. ABDOMEN AND PELVIS: Liver: No mass. Gallbladder and biliary ducts: Unremarkable. No calcified stones. No ductal dilation. Pancreas: There are few small cystic lesions of the pancreatic body and tail the largest measuring 5 mm image 136 series 5. Spleen: Unremarkable. No splenomegaly. Adrenal glands: Unremarkable. No mass. Kidneys and ureters: No hydronephrosis or renal stone disease. Stomach and bowel: There is diffuse edematous wall thickening of the colon most prominent involving the left colon consistent with colitis. No bowel obstruction. Appendix: No evidence of appendicitis. Intraperitoneal space: Unremarkable. No free air. No significant fluid collection. Urinary bladder: Unremarkable. No mass. Reproductive: The uterus is absent. Lymph nodes: Unremarkable. No enlarged lymph nodes. Bones/joints: A left total hip prosthesis is noted in anatomic alignment. There is hardware fixation of the right femoral neck. There are old fractures of the L4 and L5 vertebral bodies. Diffuse cynp-bh-xwhdbdse degenerative changes of the spine are evident. No acute fracture is noted. Soft tissues: Unremarkable. IMPRESSION: 1. Unremarkable CTA. No dissection, stenosis or occlusion. 2. Diffuse colitis. 3. Other nonemergent findings as noted.
[2024-03-21] VITALS (11 sets, daily range): BP systolic 140–193; BP diastolic 60–110; PULSE 67–97; RESP 15–20; TEMP 36.4–36.8; O2SAT 96–100; BMI 17.2; BMI 16.2
[2024-03-21] MEDS: LACTATED RINGERS 1000ML 1,000 ML 999 ML IV (00:04)
[2024-03-21 00:23] LABS: Basophils % 0.2 % (0.1-2.0); Eosinophils # 0.1 K/mm3 (0.0-0.4); Eosinophils % 0.3 % (0.1-12.0); Hematocrit 35.7 % (37.0-47.0); Hemoglobin 11.8 g/dL (12.2-16.2); Lymphocytes # 1.2 K/mm3 (0.7-4.5); Lymphocytes % 7.3 % (10-50); Mean Corpuscular Hemoglobin 30.4 pg (27.0-31.2); Mean Corpuscular Volume 92.3 fl (81-99); Monocytes # 0.9 K/mm3 (0.1-1.0); Monocytes % 5.3 % (1.7-9.3); Neutrophils # 14.2 K/mm3 (1.8-7.8); Platelet Count 392 K/mm3 (142-424); Red Blood Count 3.86 M/mm3 (4.20-5.40); Red Cell Distribution Width 16.3 % (11.5-17.5); White Blood Count 16.3 K/mm3 (4.8-10.8)
[2024-03-21 00:25] LABS: INR 0.96 (0.9-1.1); Prothrombin Time 10.8 seconds (10.1-12.5)
[2024-03-21 00:26] LABS: MANUAL DIFFERENTIAL MANUAL DIFFERENTIAL (MANUAL DIFF)
[2024-03-21 00:30] LABS: Alanine Aminotransferase 30 U/L (12-78); Albumin Level 4.2 g/dl (3.5-5.0); Albumin/Globulin Ratio 1.3 (1.1-1.8); Alkaline Phosphatase 105 U/L (38-126); Anion Gap 8.6 mEq/L (5-15); Aspartate Amino Transferase 47 U/L (14-36); Bilirubin,Total 0.4 mg/dl (0.2-1.3); Blood Urea Nitrogen 20 mg/dl (7-17); Calcium 9.4 mg/dl (8.4-10.2); Carbon Dioxide 30 mmol/L (22.0-30.0); Chloride 103 mmol/L (98-107); Creatinine Clearance Estimated 26 mL/min (50-200); Estimated Glomerular Filt Rate 95 ml/min (>60); GFR (African American) 114 ML/MIN (>60); Globulin 3.3 g/dL (1.3-3.2); Glucose 109 mg/dl (74-100); Lipase 267 U/L (23-300); Potassium 3.6 mmoL/L (3.5-5.1); Sodium 138 mmol/L (136-145); Total Protein,Serum 7.5 g/dl (6.3-8.2)
[2024-03-21 00:43] LABS: Troponin I < 0.01 ng/ml (0.00-0.034)
[2024-03-21 00:44] LABS: HIV (1&2) Antibody Rapid NONREACTIVE (NONREACTIVE)
--- NOTE | 2024-03-21 00:44 | ED_ITS ---
Discharge Plan Disposition Patient Disposition: Admitted Condition: Fair Clinical Impressions Clinical Impression: Near syncope, Acute UTI, Abnormal ECG, Prerenal azotemia Discharge ED Provider: Evelyn Higginbotham General Adult HPI General Chief complaint: Abdominal Pain Stated complaint: Dizziness, Weakness Time Seen by Provider: 03/20/24 23:20 Mode of Arrival: EMS Source of Information: Patient Limitations: No Limitations Description of Symptoms (Recalled from ER Triage Doc. by RN): Pt comes to ER via EMS with complaints of weakeness, all over abdominal pain, and dizziness while walking up stairs with possible fainting spell. pt states she lost her vision but did not fall. Pt states these symptoms started shortly after she ate dinner. Pt denies any symptoms or abdominal pain at this time. History of Present Illness HPI narrative: 89-year-old female with a history of hypertension, iron deficiency anemia previous bilateral hip fractures presents to the ER via EMS for complaints of abdominal pain, lightheadedness, near syncope. Patient reports around 730 she ate a fig anaya and a toasted bun with cheese for dinner. She states shortly thereafter she had sudden onset severe diffuse abdominal cramping and the pain was so severe it made her lightheaded. She states she had just walked into the kitchen which requires her to go up 1 step when the pain and lightheadedness started. She states she called for her who came and supported her in the kitchen. She states he held her by the waist and she never did actually syncopized or fall. To me, she reports no vision changes, no numbness, tingling, or lateralizing weakness, she states it was the severe pain that made her feel lightheaded. Patient reports the lightheadedness subsided but she continued having significant pain so she came to the ER. She states since being in the ER her pain has gone away and she is now resting completely comfortably. She states she is 89 years old and her turns 89 this year, they take care of themselves at home and do not have close family help. She states they are able to be independent but she needs to be in perfect health to be able to help care for them both. She reports no recent fevers, chills, chest pain, difficulty breathing, nausea, vomiting, diarrhea, constipation, dysuria, hematuria, or other associated symptoms. She does have a history of prior abdominal surgeries including hysterectomy. Related Data Home Medications ?Medication ?Instructions ?Recorded ?Confirmed levothyroxine 50 mcg tablet 50 mcg PO DAILY thyroid 06/25/19 02/20/24 potassium chloride 10 mEq 10 meq PO BID Supplement 06/25/19 02/20/24 tablet,extended release(part/cryst) rosuvastatin 5 mg tablet 5 mg PO HS cholesterol 06/25/19 02/20/24 lisinopril 20 mg tablet 20 mg PO DAILY Hypertension 11/27/20 02/20/24 acetaminophen 325 mg capsule 325 mg PO QID PRN Pain 02/24/21 02/20/24 calcium citrate 200 mg PO BID 02/24/21 02/20/24 cholecalciferol (vitamin D3) 10 10 mcg PO DAILY 02/24/21 02/20/24 mcg (400 unit) capsule meclizine 12.5 mg tablet 12.5 mg PO TID 02/24/21 02/20/24 metoprolol succinate 25 mg 12.5 mg PO DAILY 02/24/21 02/20/24 tablet,extended release 24 hr mirabegron 50 mg tablet,extended 50 mg PO DAILY 02/24/21 02/20/24 release 24 hr (Myrbetriq) rosuvastatin 5 mg tablet 5 mg PO DAILY 02/24/21 02/20/24 szcZ-U2-W-V-ztxxai-rmfioqp-min 1 tab PO BID 02/24/21 02/20/24 3,300 unit-5 mg-200mg-75 unit tablet ER (ICaps) docusate sodium 100 mg capsule 1 ea PO DIRECTED BOWELS 05/16/21 02/20/24 potassium chloride 10 mEq 10 meq PO DIRECTED SUPPLIMENT 05/16/21 02/20/24 tablet,extended release prednisone 5 mg tablet 5 mg PO BID 02/23/22 02/20/24 timolol maleate 0.5 % eye drops 1 drp Eye-Both DAILY 02/23/22 02/20/24 Previous Rx's ?Medication ?Instructions ?Recorded diclofenac sodium 1 % topical gel 4 g topical QID PRN pain 30 days 02/23/22 #100 grams hydrocodone 5 mg-acetaminophen 325 1 tab PO TID #90 tabs 06/06/23 mg tablet cefdinir 300 mg capsule 300 mg PO BID 7 days #14 caps 07/20/24 Allergies Allergy/AdvReac Type Severity Reaction Status Date / Time nitrofurantoin Allergy Verified 02/20/24 14:01 [facility] Disclaimer: The information contained in this section may have been updated after the patient was seen, as this information can be updated by other users. Medical History History of hypertension Hyperlipidemia Iron deficiency anemia Surgical History History of hip surgery BOLIVAR. Family History Other Unknown family medical history Social History Smoking Status: Never smoker alcohol intake: never current occupational status: retired Travel in the last 8 weeks: None household members: spouse housing: house education level: high school current occupational exposures/hazards: No caffeine: Yes Other Medical History Have you received the Flu Vaccine for this season: Yes Have you received the Pneumonia Vaccine: Yes ROS Obtained: Yes Systems reviewed as appropriate & no additional complaints except as documented ROS per HPI Physical Exam General General appearance: alert and in no apparent distress Head Head exam: atraumatic and normocephalic Eye Eye exam: Present PERRL and EOMI; Absent conjunctival redness, conjunctival injection or nystagmus ENT ENT exam: Present mucous membranes moist Neck Neck exam: Present normal inspection and full ROM Chest Chest inspection: Present symmetric chest wall rise; Absent tenderness Respiratory Respiratory exam: Present normal lung sounds bilaterally; Absent respiratory distress, wheezes or stridor Cardiovascular Cardiovascular exam: Present regular rate and normal rhythm Abdominal Exam Abdominal exam: Present soft; Absent distention, tenderness, guarding or rebound Comment: Completely benign abdominal exam Extremities Exam Extremities exam: Present full ROM Neurological Exam Neurological exam: Present alert, oriented X3, CN II-XII intact and other (NIH 0, 5 out of 5 strength in all extremities as well as sensation intact, normal rrlnch-dr-zeal and golt-tv-ktoa); Absent motor sensory deficit Psychiatric Psychiatric exam: Present normal affect and normal mood Skin Skin exam: Present warm and dry Medical Decision Making Medical Records Medical records reviewed: Yes I reviewed the patient's medical records. Screening: Per USPSTF and CDC recommendations, given the prevalence of disease in our region, it is our hospital?s policy to screen for HIV and viral Hepatitis for all patients aged 18 and over and those with ongoing risk factors. MR Comment: I reviewed previous ECGs which do not show any changes in the inferior leads or the lateral leads. Andrew Inquiry Pt receiving controlled substance: No Vital Signs: 03/20/24 22:31 03/20/24 23:02 03/20/24 23:30 Temperature 98.1 F Temperature Source Oral Pulse Rate 82 74 Pulse Rate [Right Radial] 80 Respiratory Rate 17 Blood Pressure 146/74 H 132/63 Blood Pressure [Right Arm] 158/75 H Blood Pressure Mean [Right Arm] 102 Blood Pressure Source [Right Arm] Automatic Cuff Blood Pressure Position [Right Arm] Supine 02 Sat by Pulse Oximetry 96 97 97 Oxygen Delivery Method Room Air 03/21/24 01:47 Temperature Temperature Source Pulse Rate 97 H Pulse Rate [Right Radial] Respiratory Rate 15 Blood Pressure 183/110 H Blood Pressure [Right Arm] Blood Pressure Mean [Right Arm] Blood Pressure Source [Right Arm] Blood Pressure Position [Right Arm] 02 Sat by Pulse Oximetry 100 Oxygen Delivery Method Room Air Lab Data Lab Results 03/21/24 00:05: WBC 16.3 H, RBC 3.86 L, Hgb 11.8 L, Hct 35.7 L, MCV 92.3, MCH 30.4, MCHC 33.0, RDW 16.3, Plt Count 392, MPV 7.0 L, Neut % (Auto) 87.0 H, Lymph % (Auto) 7.3 L, [place] % (Auto) 5.3, Eos % (Auto) 0.3, Baso % (Auto) 0.2, Neut # (Auto) 14.2 H, Lymph # (Auto) 1.2, [place] # (Auto) 0.9, Eos # (Auto) 0.1, Baso # (Auto) 0.0, Total Counted 100, Neutrophils % (Manual) 87 H, Lymphocytes % (Manual) 9 L, Monocytes % (Manual) 3, Basophils % (Manual) 1.0, Platelet Estimate Normal, RBC Morphology Normal, PT 10.8, INR 0.96, Sodium 138, Potassium 3.6, Chloride 103, Carbon Dioxide 30, Anion Gap 8.6, BUN 20 H, Creatinine 0.60, Estimated Creat Clear 26, Estimated GFR 95, Est GFR ( Amer) 114, Glucose 109 H, Calcium 9.4, Total Bilirubin 0.4, AST 47 H, ALT 30, Alkaline Phosphatase 105, Troponin I < 0.01, Total Protein 7.5, Albumin 4.2, Globulin 3.3 H, Albumin/Globulin Ratio 1.3, Lipase 267, HIV 1&2 Antibody Rapid Nonreactive 03/21/24 00:50: Urine Color Yellow, Urine Appearance Clear, Urine pH 6.0, Ur Specific [place] 1.020, Urine Protein Negative, Urine Glucose (UA) Negative, Urine Ketones Negative, Urine Blood Negative, Urine Nitrate Positive A, Urine Bilirubin Negative, Urine Urobilinogen 0.2, Ur Leukocyte Esterase 1+ A, Urine RBC None, Urine WBC 10-20, Ur Squamous Epith Cells 5-10, Urine Bacteria 3+ 03/21/24 01:20: Lactate 0.8, SARS-CoV-2 (PCR) Not detected, Influenza A Untype (PCR) Not detected, Influenza Type B (PCR) Not detected 03/21/24 00:05 03/21/24 00:05 Orders (Tests/Meds): ED MEDICATIONS Generic Name Dose Route Start Last Admin Trade Name Freq PRN Reason Stop Dose Admin Ceftriaxone Sodium 1 gm/ 50 mls @ 100 mls/hr 03/21/24 01:30 03/21/24 01:41 Sodium Chloride IV 03/31/24 01:29 100 mls/hr Q24H ANDER Administration Discontinued Medications Generic Name Dose Route Start Last Admin Trade Name Freq PRN Reason Stop Dose Admin Lactated Ringer's 1,000 mls @ 999 mls/hr 03/20/24 23:58 03/21/24 00:04 Lactated Ringer's 1000 Ml Bag IV 03/21/24 00:58 999 mls/hr .Q1H1M ONE Administration Iopamidol 80 ml 03/21/24 01:22 03/21/24 01:23 Iopamidol-370 (76%);100ml Bottle IV 03/21/24 01:23 80 ml ONCE ONE Administration Sodium Chloride 50 ml 03/21/24 01:22 03/21/24 01:24 0.9 % Sodium Chloride 50 Ml Vial IV 03/21/24 01:23 50 ml ONCE ONE Administration Sodium Chloride 10 ml 03/21/24 01:22 03/21/24 01:23 Sodium Chloride 0.9% 10ml Syr (Rad Only) IV 03/21/24 01:23 10 ml ONCE ONE Administration ORDERS Category Date Time Status CT angio abdomen pelvis Stat Cat Scan 03/20/24 23:57 Completed CTA Chest [CT angio chest - dissection] Stat Cat Scan 03/20/24 23:57 Completed Complete Blood Count Auto Diff Stat Lab 03/20/24 23:57 Completed Comprehensive Metabolic Panel Stat Lab 03/20/24 23:57 Completed HIV (1&2) Antibody Rapid Stat Lab 03/20/24 22:46 Completed Hep C Ab with Reflex to RNA Stat Lab 03/20/24 22:46 Received Lactic Acid Stat Lab 03/20/24 23:57 Completed Lipase Stat Lab 03/20/24 23:57 Completed POC Glucose,Bedside Stat Lab 03/20/24 23:58 Ordered Prothrombin Time INR Stat Lab 03/20/24 23:57 Completed Rapid PCR Covid and Flu A/B Stat Lab 03/21/24 01:20 Completed Troponin I Q3H Lab 03/21/24 03:00 Ordered Troponin I Q3H Lab 03/21/24 06:00 Ordered Troponin I Stat Lab 03/20/24 23:57 Completed Urinalysis and Microscopic Stat Lab 03/21/24 00:50 Completed Blood Culture Stat Micro 03/21/24 00:50 Received Urine Culture Stat Micro 03/21/24 00:50 Received ECG Request Stat Y 03/21/24 01:28 Ordered Medical Decision Narrative: In summary, this 89-year-old female with comorbidities described in HPI presents to the emergency department today with sudden onset cramping abdominal pain associated with lightheadedness, all of which has now resolved. On initial evaluation patient is hemodynamically stable, afebrile, fully oriented, GCS 15, no neurologic deficits, NIH 0, abdominal exam completely benign, no tenderness throughout even to deep palpation, cardiopulmonary exam normal. Differential diagnosis includes but is not limited to ACS, dissection, mesenteric ischemia, arrhythmia, electrolyte abnormality, dehydration, viral syndrome, urinary tract infection, among others. Based on these concerns, I ordered serum labs, cardiac workup, CT angiography. ECG personally interpreted demonstrates sinus tachycardia, rate 101, normal axis, normal DE and QTc, patient does have depressions in the inferior and lateral leads but no elevations, she is not complaining of chest pain or shortness of breath, repeat ECG will be performed. These abnormalities are new compared to previous ECG Patient received IV fluids for treatment. Labs personally reviewed demonstrate significant leukocytosis WBC 16.3, nonspecific, but higher concern for infection especially since patient has neutrophilia, left shift. Patient does have anemia with hemoglobin 11.8, only slightly decreased from prior labs based on my review of labs from October, normal PT/INR, CMP with mild prerenal azotemia, patient is receiving IV fluids, trace elevation in AST is stable from prior, initial troponin undetectably low less than 0.01, lipase normal at 267 reassuring against pancreatitis, UA concerning for infection. Receiving IV Rocephin for treatment CT angiography chest, abdomen, pelvis all personally interpreted does not demonstrate any findings of acute vascular abnormality, there are findings of colitis as well as bladder thickening consistent with the patient's newly identified UTI. See radiology read for final interpretation. Patient continues to be stable and is not having any pain however given her symptoms of lightheadedness at home and her having to care for both herself and her elderly , I believe it is safest for patient to be admitted for further evaluation of her EKG changes, serial troponin, UTI treatment, and physical therapy evaluation to ensure she will be safe and does not require any placement. Patient is in agreement with this plan. She states her will be safe alone at home tonight and she will call him in the morning. I discussed this case with the hospitalist including lab and imaging findings, he has graciously accepted the patient for admission Patient was accepted for admission but not yet moved upstairs on repeat ECG was performed. I personally interpreted this and it demonstrates sinus rhythm, rate 91, normal axis, normal DE and QTc, still demonstrates ST changes in the inferior and lateral leads however these are not consistent with STEMI. She is not having chest pain. Troponin will continue to be trended while inpatient. Critical Care Critical Care Time Critical Care Time: No
[2024-03-21 00:52] LABS: Lymphocytes % 9 % (10-50); Monocytes % 3 % (2-9); Neutrophils % 87 % (42-76); Total Cells Counted 100
[2024-03-21 00:53] LABS: Platelet Estimate Normal; RBC Morphology Normal
--- NOTE | 2024-03-21 00:56 | ECG_ITS ---
APPROVED REPORT Exam: Resting ECG HR:101 bpm ECG Measurements Heart Rate 101 AXES LA 173 P 83 QRSd 88 QRS 64 QT 284 T 58 QTc 342 Conclusion SINUS TACHYCARDIA POSSIBLE RIGHT VENTRICULAR CONDUCTION DELAY [RSR (QR) IN V1/V2] ST DEVIATION AND MODERATE T-WAVE ABNORMALITY, CONSIDER LATERAL ISCHEMIA [-0.1+ mV T-WAVE IN I/aVL/V5/V6] ST depressions in lead II, 3, aVF as well as V4 through V6, these are new from previous ECG, no STEMI, see repeat ECG Electronically signed by : ANA FELIPE, 03/21/2024 06:55:26
[2024-03-21 01:00] LABS: Microscopic, Urine URINE MICROSCOPIC (MICROSCOPIC)
[2024-03-21 01:10] LABS: Appearance,Urine CLEAR (Clear); Bilirubin,Urine Negative (Negative); Blood, Urine Negative (Negative); Color,Urine YELLOW (Yellow); Glucose,Urine (UA) Negative (Negative); Ketones,Urine Negative (Negative); Leukocyte Esterase,Urine 1+ (Negative); Nitrate,Urine POSITIVE (Negative); Protein,Urine Negative (Negative); Urobilinogen,Urine 0.2 EU/dl (0.2)
[2024-03-21] MEDS: IOPAMIDOL-370 (76%);100ML BOTTLE 80 ML IV (01:23)
[2024-03-21] MEDS: SODIUM CHLORIDE 0.9% 10ML SYR (RAD ONLY) 10 ML IV (01:23)
[2024-03-21] MEDS: 0.9 % SODIUM CHLORIDE 50 ML VIAL IV (01:24)
[2024-03-21 01:36] LABS: Bacteria,Urine 3+ /lpf
[2024-03-21 01:38] LABS: Coronavirus 19, PCR Not Detected (NotDetected); Influenza A, PCR Not Detected (NotDetected); Influenza B, PCR Not Detected (NotDetected)
[2024-03-21] MEDS: CEFTRIAXONE 1 GM 1 GM in 0.9 % SODIUM CHLORIDE 50 ML IV (01:41)
[2024-03-21 01:42] LABS: Lactic Acid 0.8 mmol/L (0.7-2.1)
--- NOTE | 2024-03-21 02:30 | P.HP_ITS ---
<Statement entered by Shlomo Engel MD - 03/23/24 14:27> I personally evaluated patient and agree with plan of care as outlined by KIRTI below. History of Present Illness *Admission Date: 03/21/24 *Reason for visit:: Urinary tract infection abdominal pain elevated white count *History of present illness: This 89-year-old female who was at home and felt like she was going to pass out, needed to have help from her 90-year-old to come to the kitchen. They then came to the emergency room because she was also having abdominal pain.. While in the emergency room the abdominal pain has subsided. Patient was worked up for the abdominal pain and CT scan does show diffuse colitis., Also urinary tract infection was found with a white count of 16.3. Mild preazotemia. After speaking with the emergency room provider. Do agree with this lady's frailty is a being 89, almost having a syncopal event having a urinary tract infection with increased WBCs, was having abdominal pain but now scans showing a fair amount of colitis. But pain has improved. He does need to be admitted to have initial treatment of Best tract infection completed to ensure that her orthostatics are good have her evaluated by physical therapy make sure that she has good balance before releasing her home. Patient did note that she had an eye appointment tomorrow because she wanted to ask about floaters that she had received 4 injections in each eye over a period of time. Patient's weight has changed from August 2021 was 100 pounds to August 2022 was 96 pounds in November 2023 was 91 pound on this admission in weight is 83 pound. The patient does look underweight and has no obvious fat reserves left. Very little muscle mass is noted. [facility] Disclaimer: The information contained in this section may have been updated after the patient was seen, as this information can be updated by other users. 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 Skin tear of hand without complication Keratosis Laceration of scalp Hematoma of scalp Acute UTI History of hypertension Hyperlipidemia Iron deficiency anemia Surgical History (Updated 03/21/24 @ 05:02 by Telly Ayala APRN) History of hip surgery History of hip surgery Family History Other Unknown family medical history Social History Smoking Status: Never smoker alcohol intake: never current occupational status: retired Travel in the last 8 weeks: None household members: spouse housing: house education level: high school current occupational exposures/hazards: No caffeine: Yes Other Medical History Have you received the Flu Vaccine for this season: Yes Have you received the Pneumonia Vaccine: Yes Review of Systems Review of Systems Review of systems:: pertinent systems reviewed and negative unless documented below Constitutional Constitutional: Reports as per HPI Comments: Very thin lady with low body weight Eyes Eyes: Reports as per HPI ENT Ears, Nose, Mouth, and Throat: Reports as per HPI *Cardiovascular Cardiovascular: Reports as per HPI *Respiratory Respiratory: Reports as per HPI *Gastrointestinal Gastrointestinal: Reports as per HPI Comments: Patient reported she is no longer having abdominal pain *Genitourinary Genitourinary: Reports as per HPI *Musculoskeletal Musculoskeletal: Reports as per HPI Integumentary/Breasts Skin/Breast: Reports as per HPI *Neurologic Neurologic: Reports as per HPI Psychiatric Psychiatric: Reports as per HPI Endocrine Endocrine: Reports as per HPI Hematologic/Lymphatic Hematologic/Lymphatic: Reports as per HPI Allergic/Immunologic Allergic/Immunologic: Reports as per HPI Meds Home Medications and Allergies Home Medications ?Medication ?Instructions ?Recorded ?Confirmed ?Type levothyroxine 50 mcg tablet 50 mcg PO DAILY thyroid 06/25/19 03/21/24 History potassium chloride 10 mEq 10 meq PO BID Supplement 06/25/19 03/21/24 History tablet,extended release(part/cryst) lisinopril 20 mg tablet 20 mg PO DAILY Hypertension 11/27/20 03/21/24 History acetaminophen 325 mg capsule 325 mg PO QID PRN Pain 02/24/21 02/20/24 History calcium citrate 200 mg PO BID 02/24/21 02/20/24 History cholecalciferol (vitamin D3) 10 10 mcg PO DAILY 02/24/21 03/21/24 History mcg (400 unit) capsule meclizine 12.5 mg tablet 12.5 mg PO TID 02/24/21 03/21/24 History metoprolol succinate 25 mg 12.5 mg PO DAILY 02/24/21 03/21/24 History tablet,extended release 24 hr mirabegron 50 mg tablet,extended 50 mg PO DAILY 02/24/21 03/21/24 History release 24 hr (Myrbetriq) rosuvastatin 5 mg tablet 5 mg PO DAILY 02/24/21 03/21/24 History schS-S4-Z-M-xudvur-opgwdta-min 1 tab PO BID 02/24/21 02/20/24 History 3,300 unit-5 mg-200mg-75 unit tablet ER (ICaps) docusate sodium 100 mg capsule 1 ea PO DIRECTED BOWELS 05/16/21 03/21/24 History timolol maleate 0.5 % eye drops 1 drp Eye-Both DAILY 02/23/22 03/21/24 History hydrocodone 5 mg-acetaminophen 325 1 tab PO TID #90 tabs 06/06/23 03/21/24 Rx mg tablet cefdinir 300 mg capsule 300 mg PO BID 7 days #14 caps 11/03/23 03/21/24 Rx New Prescriptions to Start Prescriptions: Allergies Allergy/AdvReac Type Severity Reaction Status Date / Time nitrofurantoin Allergy Verified 02/20/24 14:01 Exam Data for Last 24 hours Vital signs and Labs for Last 24 Hours: Temp Pulse Resp BP Pulse Ox O2 Del Method 98.3 F 67 17 166/81 H 100 Room Air 03/21/24 02:25 03/21/24 02:25 03/21/24 02:25 03/21/24 02:25 03/21/24 01:47 03/21/24 02:25 Laboratory Results - last 24 hr 03/21/24 00:05: WBC 16.3 H, RBC 3.86 L, Hgb 11.8 L, Hct 35.7 L, MCV 92.3, MCH 30.4, MCHC 33.0, RDW 16.3, Plt Count 392, MPV 7.0 L, Neut % (Auto) 87.0 H, Lymph % (Auto) 7.3 L, Mcduffie % (Auto) 5.3, Eos % (Auto) 0.3, Baso % (Auto) 0.2, Neut # (Auto) 14.2 H, Lymph # (Auto) 1.2, Mcduffie # (Auto) 0.9, Eos # (Auto) 0.1, Baso # (Auto) 0.0, Total Counted 100, Neutrophils % (Manual) 87 H, Lymphocytes % (Manual) 9 L, Monocytes % (Manual) 3, Basophils % (Manual) 1.0, Platelet Estimate Normal, RBC Morphology Normal, PT 10.8, INR 0.96, Sodium 138, Potassium 3.6, Chloride 103, Carbon Dioxide 30, Anion Gap 8.6, BUN 20 H, Creatinine 0.60, Estimated Creat Clear 26, Estimated GFR 95, Est GFR ( Amer) 114, Glucose 109 H, Calcium 9.4, Total Bilirubin 0.4, AST 47 H, ALT 30, Alkaline Phosphatase 105, Troponin I < 0.01, Total Protein 7.5, Albumin 4.2, Globulin 3.3 H, Albumin/Globulin Ratio 1.3, Lipase 267, HIV 1&2 Antibody Rapid Nonreactive 03/21/24 00:50: Urine Color Yellow, Urine Appearance Clear, Urine pH 6.0, Ur Specific [place] 1.020, Urine Protein Negative, Urine Glucose (UA) Negative, Urine Ketones Negative, Urine Blood Negative, Urine Nitrate Positive A, Urine Bilirubin Negative, Urine Urobilinogen 0.2, Ur Leukocyte Esterase 1+ A, Urine RBC None, Urine WBC 10-20, Ur Squamous Epith Cells 5-10, Urine Bacteria 3+ 03/21/24 01:20: Lactate 0.8, SARS-CoV-2 (PCR) Not detected, Influenza A Untype (PCR) Not detected, Influenza Type B (PCR) Not detected I & O for Last 24 hours: Intake & Output 03/18/24 03/19/24 03/20/24 03/21/24 05:59 05:59 05:59 05:59 Intake Total 1050 / 1050 Balance 1050 / 1050 Weight 91 lb Radiology Reports for the Last 24 Hours: CT of the abdomen showing diffuse colitis, Constitutional Constitutional: mild distress, thin and chronically ill appearing Comments: Elderly lady very frail looking., *Routine HEENT Exam Head: Present normocephalic and atraumatic Eye: Present EOMI and PERRL ENT: Present mucous membranes moist, nares patent and external ear normal *Routine Neck Exam Neck: Present supple Comments: No tenderness was found on neck exam Routine Chest/Breast/Axilla Exam Comments: No tenderness or injury was found to chest woodall *Routine Respiratory Exam Respiratory: Present CTA bilaterally, normal respiratory effort, able to speak in complete sentences and symmetric chest movement *Routine Cardiovascular Exam Cardiovascular: Present RRR and murmur Comments: Systolic murmur grade 2 out of 6, PVCs versus slightly irregular *Routine Abdominal Exam Abdominal: Present soft and normoactive bowel sounds Comments: Abdomen was soft *Routine Rectal Exam Rectal:: deferred *Routine Genitalia Exam Genitalia:: deferred *Routine Extremities Exam Extremities: Present pulses intact and extremity cold to touch Comments: Patient is able to move her legs and arms well, due to her laying in bed did not take him through full range of motion also related to her age and decreased range of motion Routine Back/Spine/Pelvis Exam Comments: Patient expressed to me no back pain she was able to help me when she sat up so I could listen to her lungs., *Routine Skin Exam Skin: Present intact Comments: Skin was kind of cool but is is intact there was no abnormal bruising noted , skin is thin able to see multiple blood vessels in different areas especially her hands *Routine Neurological Exam Neurological: Present alert, oriented X3, CN II-XII intact, vision grossly intact, hearing grossly intact and normal speech Comments: Patient has normal speech but she talks very slowly she has to think about what she said needs to say to collect the right words., But there was no tremor there was no sign of weakness on either side. 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 And she speaks of him quite fondly H&P: Result Impressions 1. Increasing debilitation of old age. With low body weight and weight loss over the last 2 years. Of approximately 20% of her body weight 2. Urinary tract infection with elevated white count question early sepsis , R renal infection. 3. Abdomen noting significant amounts of colitis. Patient is not in pain at this time Imaging and Cardiology CT scan - abdomen: Additional comments: Showing inflammation throughout the bowel being read as significant are widespread colitis Assessment and Plan *Assessment and plan (1) Acute UTI: Status: Acute Category: Medical Code(s): N39.0 - Urinary tract infection, site not specified (2) Elevated white blood cell count, unspecified: Status: Acute Qualifiers: Leukocytosis type: leukemoid reaction Qualified Code(s): D72.823 - Leukemoid reaction Category: Medical Code(s): D72.829 - Elevated white blood cell count, unspecified (3) Abnormal ECG: Status: Acute Category: Medical Code(s): R94.31 - Abnormal electrocardiogram [ECG] [EKG] (4) Near syncope: Status: Acute Category: Medical Code(s): R55 - Syncope and collapse (5) T wave inversion on electrocardiogram: Status: Acute Category: Medical Code(s): R94.31 - Abnormal electrocardiogram [ECG] [EKG] (6) Weight loss: Status: Acute Category: Medical Code(s): R63.4 - Abnormal weight loss (7) Failure to thrive in adult: Status: Acute Category: Medical Code(s): R62.7 - Adult failure to thrive (8) Prerenal azotemia: Status: Acute Category: Medical Code(s): R79.89 - Other specified abnormal findings of blood chemistry (9) Colitis: Status: Acute Category: Medical Code(s): K52.9 - Noninfective gastroenteritis and colitis, unspecified Plan 1. The patient has urinary tract infection with increased white count.. Antibiotics have been ordered. 2. EKG showing inversion of T waves that was not present on previous EKGs. Presently troponins are normal 3. 20% of weight loss over the past 2 years. Very thin framed woman. 4. Near syncopal episode at the house needing help., ,With labs finding UTI and prerenal azotemia. Continue with antibiotics at this time also to monitor nutrition. Have physical therapy to evaluate for balance and being able to care for self. Made case management aware to be able to evaluate the patient to see if there is any help needed in the home as her and her continue to age.. 5. Intermittent abdominal pain showing colitis on CT scan. Presently stable 6. History of glaucoma has received injection in the eyes has an appointment tomorrow afternoon, in [facility] would like to make that appointment or we will need to help her and that when she can call to change the appointment if she is still in the hospital.
--- NOTE | 2024-03-21 02:35 | PC.NURSE ---
Patient arrived to floor via stretcher from ED at 02:29.
[2024-03-21 03:50] LABS: Troponin I 0.01 ng/ml (0.00-0.034)
[2024-03-21 06:16] LABS: Basophils # 0.1 K/mm3 (0-0.2); Basophils % 0.4 % (0.1-2.0); Eosinophils % 0.1 % (0.1-12.0); Hematocrit 33.2 % (37.0-47.0); Hemoglobin 10.8 g/dL (12.2-16.2); Lymphocytes # 1.8 K/mm3 (0.7-4.5); Lymphocytes % 14.4 % (10-50); Mean Corpuscular HGB Conc 32.6 g/dL (31.8-35.4); Mean Corpuscular Hemoglobin 29.6 pg (27.0-31.2); Mean Corpuscular Volume 90.8 fl (81-99); Mean Platelet Volume 7.3 fl (7.4-10.4); Monocytes # 0.7 K/mm3 (0.1-1.0); Monocytes % 5.8 % (1.7-9.3); Neutrophils # 9.8 K/mm3 (1.8-7.8); Neutrophils % 79.3 % (37.0-80.0); Platelet Count 371 K/mm3 (142-424); Red Blood Count 3.66 M/mm3 (4.20-5.40); Red Cell Distribution Width 16.3 % (11.5-17.5); White Blood Count 12.3 K/mm3 (4.8-10.8)
[2024-03-21 06:17] LABS: Albumin Level 3.7 g/dl (3.5-5.0); Chloride 107 mmol/L (98-107); Potassium 3.2 mmoL/L (3.5-5.1); Sodium 139 mmol/L (136-145)
[2024-03-21 06:19] LABS: Anion Gap 7.2 mEq/L (5-15); Blood Urea Nitrogen 11 mg/dl (7-17); Carbon Dioxide 28 mmol/L (22.0-30.0); Creatinine Clearance Estimated 24 mL/min (50-200); Estimated Glomerular Filt Rate 117 ml/min (>60); GFR (African American) 141 ML/MIN (>60)
[2024-03-21 06:20] LABS: Alanine Aminotransferase 25 U/L (12-78); Albumin/Globulin Ratio 1.3 (1.1-1.8); Alkaline Phosphatase 107 U/L (38-126); Aspartate Amino Transferase 35 U/L (14-36); Bilirubin,Total 0.4 mg/dl (0.2-1.3); Calcium 8.9 mg/dl (8.4-10.2); Globulin 2.9 g/dL (1.3-3.2); Glucose 112 mg/dl (74-100); Total Protein,Serum 6.6 g/dl (6.3-8.2)
[2024-03-21 06:31] LABS: Troponin I 0.05 ng/ml (0.00-0.034)
--- NOTE | 2024-03-21 06:47 | EXP.EVENT.NO ---
Patient has been sleeping peacefully all night vital signs remain normal. Labs come back today with an increasing troponin level to 0.05 Plan at this time cardiology is already been consulted a stat twelve-lead has been ordered to see if there is changes in the ST segments
--- NOTE | 2024-03-21 07:37 | CA_ITS ---
APPROVED REPORT EXAM: Comprehensive 2D, Doppler, and color-flow Echocardiogram Clinical Haematologist: BRAYDEN Eagle, RVS Ht: 5 ft 0 in Wt: 83lbs BSA: 1.28 BP: 166/81 mmHg Indications: Elevated Troponin, UTI, Abdominal pain, Abn EKG, Near syncope, Murmurs Echo Enhancing Agent Comments: TDS: limited windows due to petite body habitus, Patient supine throughout 2D Dimensions IVSd 0.90 cm LVEF (Visual) 58.10 % PWd 0.93 cm LA Volume 59.30 mL LVDd 4.67 cm LA Volume Index 46.353689 mL/m2 (M/F) 16-34 LVDs 3.24 cm EF AP4 65.30 % Aortic Root 2.45 cm GL Strain -21.0 % Left Atrium 3.14 cm RVID Base (AP4) 2.77 cm (M/F) 2.5-4.1 LVOT 1.50 cm (M/F) 1.5-2.5 M-Mode Dimensions LVDd 4.67 cm (3.5-5.7) Ao Diam 2.94 cm (2.0-3.7) LVDs 3.24 cm (3.5-5.7) IVSd 0.90 cm (0.6-1.1) PWd 0.93 cm (0.6-1.1) EPSs 0.87 cm FS 30.60% TAPSE 1.50 (<1.7) LV Diastology E Decel Time 233 (160-240 msec) E/A Ratio 1.00 MED E' 7.6 (>= 7 cm/sec) MED A' 11.70 cm/s E'/MED E' Ratio 13.17 (<= 14) LAT E' 8.4 (>= 10 cm/sec) LAT A' 10.40 cm/s E/LAT E' Ratio 11.92 (<= 14) Aortic Valve LVOT Max 149.0 (70-110 cm/s) SLOANE Index 1.12 cm2/m2 LVOT VTI 29.55 cm AoV Peak Telly. 189.0 (50-130 cm/s) AI PHT 370.00 ms AO Peak GR. 11.80 mmHg AO Mean GR. 7.20 (<5 mmHg) AO VTI 36.2 (18-25 cm) SLOANE (VTI) 1.44 (2.5-4.5 cm2) Mitral Valve MV E Max Telly. 100.0 (40-130 cm/s) MV A Velocity 100.0 (40-130 cm/s) E/A Ratio 1.00 MV Decel. Time 233 (160-240 ms) Tricuspid Valve TR P. Velocity 278.00 cm/s RAP Estimate 10.00 mmHg RVSP 40.90 mmHg Left Ventricle The left ventricle is normal size. LVEDd=4.0 cm. LVESd=2.5 cm. The left ventricular systolic function is normal. The left ventricular ejection fraction is within the normal range. There is increased LV wall thickness. There is normal LV segmental wall motion. Transmitral Doppler flow pattern suggests impaired LV relaxation. LVEF is 60%. Right Ventricle The right ventricle is normal size. The right ventricular systolic function is normal. Atria The left atrium size is normal. The right atrium size is normal. There is no Doppler evidence of interatrial shunt. Aortic Valve The aortic valve is mildly thickened. There is no aortic valvular stenosis. Moderate to severe aortic regurgitation is present. Mitral Valve The mitral valve leaflets are mildly thickened. No evidence of mitral valve stenosis. Mild mitral regurgitation. Tricuspid Valve Tricuspid valve is grossly normal in structure and function. Mild tricuspid regurgitation. RVSP is 30-35 mmHg. Pulmonic Valve The pulmonary valve is normal in structure. Trace pulmonic regurgitation. Great Vessels The aortic root is normal in size. The ascending aorta is not well visualized. IVC is normal in size and collapses >50% with inspiration. Pericardium There is no pericardial effusion. Other Information Study Quality: Fair Conclusion Normal biventricular systolic function. The left ventricle is normal size. LVEDd=4.0 cm. LVESd=2.5 cm. Moderate to severe AI. Mild MR, mild TR. In the setting of moderate to severe AI, evaluation with cardiac MRI (aortic valve protocol) is suggested to further assess severity of AI and LV dimensions. Electronically signed by : Stormy Alamo MD 03/30/2024 16:21:43
--- NOTE | 2024-03-21 07:47 | PC.NURSE ---
ROSIE informed this RN of elevated BP in morning VS of 178/96. hospitalist donnell informed. EKG taken per order. EKG results verified with Ag and read over phone to hospitalist and given EKG report for viewing. no new orders at this time. instructed to give morning BP medications.
--- NOTE | 2024-03-21 08:13 | ECG_ITS ---
APPROVED REPORT Exam: Resting ECG HR:80 bpm ECG Measurements Heart Rate 80 AXES AK 165 P -38 QRSd 87 QRS -49 QT 353 T -42 QTc 389 Conclusion SINUS RHYTHM POSSIBLE RIGHT VENTRICULAR CONDUCTION DELAY [RSR (QR) IN V1/V2] INFERIOR MYOCARDIAL INFARCTION , OF INDETERMINATE AGE [40+ ms Q WAVE AND/OR ST/T ABNORMALITY IN II/aVF] ABNORMAL ECG INTERPRETATION BASED ON A DEFAULT AGE OF 40 YEARS UNCONFIRMED REPORT Electronically signed by : Sina Li MD 03/21/2024 19:30:24
--- NOTE | 2024-03-21 08:17 | PC.NURSE ---
alerted nurse (Emeli) about elevated b/p.
--- NOTE | 2024-03-21 08:28 | HMH.PHAINT1 ---
Pharmacy Intervention Comments: home medication list verified using the list from outpatient pharmacy
[2024-03-21] MEDS: TIMOLOL 0.5% OPTH SOLN 5ML OP (08:42)
[2024-03-21] MEDS: METOPROLOL SUCCINATE XL 25MG TABLET 12.5 MG PO (08:42)
[2024-03-21] MEDS: LISINOPRIL 20MG TABLET 20 MG PO (08:42)
[2024-03-21] MEDS: LEVOTHYROXINE 50MCG (0.05MG) TAB 50 MCG PO (08:42)
[2024-03-21] MEDS: ENOXAPARIN 30MG/0.3ML SYRINGE 30 MG SUBCUT (08:44)
--- NOTE | 2024-03-21 09:12 | HMH.PTEV ---
Physical Therapy Evaluation Rehab PT IP Evaluation Start: 03/21/24 04:04 Freq: ONCE Status: Active Protocol: Document 03/21/24 08:58 SUKHWINDER (Rec: 03/21/24 09:11 SUKHWINDER [id number]) Subjective/History History History Per H&P: This 89-year-old female who was at home and felt like she was going to pass out, needed to have help from her 90-year-old to come to the kitchen. They then came to the emergency room because she was also having abdominal pain.. While in the emergency room the abdominal pain has subsided. Patient was worked up for the abdominal pain and CT scan does show diffuse colitis., Also urinary tract infection was found with a white count of 16.3. Mild preazotemia. After speaking with the emergency room provider. Do agree with this lady's frailty is a being 89, almost having a syncopal event having a urinary tract infection with increased WBCs, was having abdominal pain but now scans showing a fair amount of colitis. But pain has improved. He does need to be admitted to have initial treatment of Best tract infection completed to ensure that her orthostatics are good have her evaluated by physical therapy make sure that she has good balance before releasing her home. Subjective Subjective Pt reports she was IND with all mobility prior to admission. Pt used a RW for ambulation. Pt lives in a single-story home with 1 ARAC[address]. Pt lives with her who cares for her as needed. Pt does not drive. does the driving. New diagnosis of cancer in past 12 No months? Rehab PT IP Eval Objective Appearance Patient Behavior Appropriate,Cooperative Difficulty following instructions none Speech Pattern Clear,Rambling Ambulation Patient Able to Ambulate Yes Ambulation Observation IP General Gait Pattern Observation No Deviations/Normal Ambulation Distance (feet) 20 Ambulation Assistive Device Rolling Walker Ambulation Ability Independent,Supervision/Stand by Balance Ability to Arise Able, uses arms to help Sitting Balance Steady, safe Standing Balance Steady, wide stance Dynamic Sitting Balance Ability Normal Dynamic Standing Balance Ability Fair Transfers Bed Transfer Ability Independent Sit to Stand Bed Transfer Ability Supervision/Stand by Rehab PT IP prob,goals,plan Problems Date of Evaluation: 03/21/24 Rehab Potential Rehab Potential Innapropriate for Skilled Therapy Discharge Plan PT Discharge Plan Initial PT evaluation performed. Pt demo'd IND-SUP ambulation using RW. Pt does demo impaired gait speed but showed good safety awareness and IND transfers using RW. Pt safe to d/c home (when deemed medically necessary) with care provided by as needed. Pt not appropriate for skilled acute care physical therapy d/t mobility and ambulation being at baseline/ SUP-Mod IND. Eval Complexity Eval Charge Codes 04675 - Moderate Complexity PHYSICIAN CERTIFICATION: I certify the specified therapy services for Liz Méndez are required, authorized, and reviewed every 30 days.
--- NOTE | 2024-03-21 09:54 | HMH.OTEV ---
OT Inpatient Evaluation Rehab OT IP Evaluation Start: 03/21/24 04:05 Freq: ONCE Status: Active Protocol: Document 03/21/24 09:41 [facility] SYSTEM[facility]rist[facility] (Rec: 03/21/24 09:54 [facility] [id number]) Rehab OT IP Assessment Subjective History Pt oriented x 3 on arrival. Pt agreeable to engage in therapy evaluation. Pt admitted on 03/21/24 due to UTI and abdominal pain. History and Physical: This 89-year-old female who was at home and felt like she was going to pass out, needed to have help from her 90-year- old to come to the kitchen. They then came to the emergency room because she was also having abdominal pain.. While in the emergency room the abdominal pain has subsided. Patient was worked up for the abdominal pain and CT scan does show diffuse colitis., Also urinary tract infection was found with a white count of 16.3. Mild preazotemia. After speaking with the emergency room provider. Do agree with this lady's frailty is a being 89, almost having a syncopal event having a urinary tract infection with increased WBCs, was having abdominal pain but now scans showing a fair amount of colitis. But pain has improved. He does need to be admitted to have initial treatment of Best tract infection completed to ensure that her orthostatics are good have her evaluated by physical therapy make sure that she has good balance before releasing her home. Patient did note that she had an eye appointment tomorrow because she wanted to ask about floaters that she had received 4 injections in each eye over a period of time. Subjective I can do what I need to. Prior to being in the hospital , pt lived at home with her . Pt claims normally she is independent with all ADLs. She also completes most IADLs such as cooking and light cleaning. Her normally completes heavier household tasks. She does use a rolling walker during functional transfers. Objective Patient Orientation Person,Place,Name Right Upper Extremity Gross ROM WFL Left Upper Extremity Gross ROM WFL Bed Mobility bed mobility-scooting,bed mobility - supine/sit Assist Level Supervision/Stand by Transfer Training Sit/Stand Transfer Assist Level Supervision/Stand by Lower Body Dressing Ability Standby Assistance Performing Toilet Hygiene Ability Standby Assistance Overall Commode/Toilet Transfer Ability Standby Assistance Commode/Toilet Transfer Technique Sit to/from Ambulatory Rehab OT IP prob,goals,plan Problems Date of Evaluation: 03/21/24 Rehab Potential Rehab Potential Innapropriate for Skilled Therapy Discharge Plan OT Discharge Plan Pt appears to be at baseline with functional transfers and ADL independence. Pt can return home with assistance as needed once she is medially stable per physician. Eval Complexity Eval Charge Codes 57114 - Low Complexity PHYSICIAN CERTIFICATION: I certify the specified therapy services for Liz Méndez are required, authorized, and reviewed every 30 days.
--- NOTE | 2024-03-21 09:55 | P.CONCA_ITS ---
History of Present Illness History of Present Illness Consult date: 03/21/24 Requesting physician: Shlomo Engel Chief complaint: Abnormal EKG, elevated troponin Additional Medical History:: 1. Degenerative disc disease of the lumbar spine with radiculopathy 2. History of iron deficiency anemia 3. Hypertension 4. Hyperlipidemia 5. Hypothyroidism 6. History of vertigo/dizziness History of present illness: This 89-year-old female who was at home and felt like she was going to pass out, needed to have help from her 90-year-old to come to the kitchen. They then came to the emergency room because she was also having abdominal pain.. While in the emergency room the abdominal pain has subsided. Patient was worked up for the abdominal pain and CT scan does show diffuse colitis., Also urinary tract infection was found with a white count of 16.3. Mild preazotemia. After speaking with the emergency room provider. Do agree with this lady's frailty is a being 89, almost having a syncopal event having a urinary tract infection with increased WBCs, was having abdominal pain but now scans showing a fair amount of colitis. But pain has improved. He does need to be admitted to have initial treatment of Best tract infection completed to ensure that her orthostatics are good have her evaluated by physical therapy make sure that she has good balance before releasing her home. Patient did note that she had an eye appointment tomorrow because she wanted to ask about floaters that she had received 4 injections in each eye over a period of time. Patient's weight has changed from August 2021 was 100 pounds to August 2022 was 96 pounds in November 2023 was 91 pound on this admission in weight is 83 pound. The patient does look underweight and has no obvious fat reserves left. Very little muscle mass is noted. The above per Telly Ayala APRN for the hospitalist service The above events confirmed with the patient. Cardiology consulted for abnormal EKG with elevation in second troponin. Patient denies any prior cardiac history or issues. Currently hospitalized with UTI and colitis. Echo being performed at the time of my exam with preliminary results showing preserved ejection fraction with approximately moderate aortic insufficiency. Initial troponin 0.01 with second troponin elevation at 0.05. Third troponin is pending. [facility] Disclaimer: The information contained in this section may have been updated after the patient was seen, as this information can be updated by other users. 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 Skin tear of hand without complication Keratosis Laceration of scalp Hematoma of scalp Acute UTI History of hypertension Hyperlipidemia Iron deficiency anemia Surgical History (Updated 03/21/24 @ 05:02 by Telly Ayala APRN) History of hip surgery History of hip surgery Family History Other Unknown family medical history Social History Smoking Status: Never smoker alcohol intake: never current occupational status: retired Travel in the last 8 weeks: None household members: spouse housing: house education level: high school current occupational exposures/hazards: No caffeine: Yes Review of Systems Review of Systems Review of systems:: pertinent systems reviewed and negative unless documented below *Cardiovascular Cardiovascular: Denies chest pain and Reports dyspnea on exertion *Respiratory Respiratory: Reports dyspnea on exertion *Neurologic Neurologic: Reports as per HPI Exam Data for Last 24 hours Vital signs and Labs for Last 24 Hours: Temp Pulse Resp BP Pulse Ox O2 Del Method 98.1 F 91 H 18 178/96 H 97 Room Air 03/21/24 08:16 03/21/24 08:16 03/21/24 08:16 03/21/24 08:16 03/21/24 08:16 03/21/24 09:00 Laboratory Results - last 24 hr 03/21/24 00:05: WBC 16.3 H, RBC 3.86 L, Hgb 11.8 L, Hct 35.7 L, MCV 92.3, MCH 30.4, MCHC 33.0, RDW 16.3, Plt Count 392, MPV 7.0 L, Neut % (Auto) 87.0 H, Lymph % (Auto) 7.3 L, [place] % (Auto) 5.3, Eos % (Auto) 0.3, Baso % (Auto) 0.2, Neut # (Auto) 14.2 H, Lymph # (Auto) 1.2, [place] # (Auto) 0.9, Eos # (Auto) 0.1, Baso # (Auto) 0.0, Total Counted 100, Neutrophils % (Manual) 87 H, Lymphocytes % (Manual) 9 L, Monocytes % (Manual) 3, Basophils % (Manual) 1.0, Platelet Estimate Normal, RBC Morphology Normal, PT 10.8, INR 0.96, Sodium 138, Potassium 3.6, Chloride 103, Carbon Dioxide 30, Anion Gap 8.6, BUN 20 H, Creatinine 0.60, Estimated Creat Clear 26, Estimated GFR 95, Est GFR ( Amer) 114, Glucose 109 H, Calcium 9.4, Total Bilirubin 0.4, AST 47 H, ALT 30, Alkaline Phosphatase 105, Troponin I < 0.01, Total Protein 7.5, Albumin 4.2, Globulin 3.3 H, Albumin/Globulin Ratio 1.3, Lipase 267, HIV 1&2 Antibody Rapid Nonreactive 03/21/24 00:50: Urine Color Yellow, Urine Appearance Clear, Urine pH 6.0, Ur Specific [place] 1.020, Urine Protein Negative, Urine Glucose (UA) Negative, Urine Ketones Negative, Urine Blood Negative, Urine Nitrate Positive A, Urine Bilirubin Negative, Urine Urobilinogen 0.2, Ur Leukocyte Esterase 1+ A, Urine RBC None, Urine WBC 10-20, Ur Squamous Epith Cells 5-10, Urine Bacteria 3+ 03/21/24 01:20: Lactate 0.8, SARS-CoV-2 (PCR) Not detected, Influenza A Untype (PCR) Not detected, Influenza Type B (PCR) Not detected 03/21/24 03:15: Troponin I 0.01 03/21/24 06:00: WBC 12.3 H, RBC 3.66 L, Hgb 10.8 L, Hct 33.2 L, MCV 90.8, MCH 29.6, MCHC 32.6, RDW 16.3, Plt Count 371, MPV 7.3 L, Neut % (Auto) 79.3, Lymph % (Auto) 14.4, [place] % (Auto) 5.8, Eos % (Auto) 0.1, Baso % (Auto) 0.4, Neut # (Auto) 9.8 H, Lymph # (Auto) 1.8, [place] # (Auto) 0.7, Eos # (Auto) 0.0, Baso # (Auto) 0.1, Sodium 139, Potassium 3.2 L, Chloride 107, Carbon Dioxide 28, Anion Gap 7.2, BUN 11 D, Creatinine 0.50 L, Estimated Creat Clear 24, Estimated GFR 117, Est GFR ( Amer) 141 D, Glucose 112 H, Calcium 8.9, Magnesium 2.0, Total Bilirubin 0.4, AST 35 D, ALT 25, Alkaline Phosphatase 107, Troponin I 0.05 H, Total Protein 6.6, Albumin 3.7 D, Globulin 2.9, Albumin/Globulin Ratio 1.3 I & O for Last 24 hours: Intake & Output 03/18/24 03/19/24 03/20/24 03/21/24 11:59 11:59 11:59 11:59 Intake Total 177 / 1769 Output Total 0 / 0 Balance 1769 Weight 83 lb Constitutional Constitutional: no acute distress *Routine Respiratory Exam Respiratory: Present CTA bilaterally *Routine Cardiovascular Exam Cardiovascular: Present RRR and murmur *Routine Extremities Exam Extremities: Absent edema Meds Home Medications and Allergies Home Medications ?Medication ?Instructions ?Recorded ?Confirmed ?Type levothyroxine 50 mcg tablet 50 mcg PO DAILY 06/25/19 03/21/24 History potassium chloride 10 mEq 10 meq PO BID 06/25/19 03/21/24 History tablet,extended release(part/cryst) lisinopril 20 mg tablet 20 mg PO DAILY 11/27/20 03/21/24 History meclizine 12.5 mg tablet 12.5 mg PO TIDP PRN Dizziness 02/24/21 03/21/24 History metoprolol succinate 25 mg 12.5 mg PO BID 02/24/21 03/21/24 History tablet,extended release 24 hr mirabegron 50 mg tablet,extended 50 mg PO DAILY 02/24/21 03/21/24 History release 24 hr (Myrbetriq) rosuvastatin 5 mg tablet 5 mg PO DAILY 02/24/21 03/21/24 History docusate sodium 100 mg capsule 100 mg PO BIDP PRN Constipation 05/16/21 03/21/24 History dorzolamide 22.3 mg-timolol 6.8 1 drp ophthalmic (eye) BID 03/21/24 03/21/24 History mg/mL eye drops omeprazole 20 mg capsule,delayed 20 mg PO HS 03/21/24 03/21/24 History release New Prescriptions to Start Prescriptions: Allergies Allergy/AdvReac Type Severity Reaction Status Date / Time nitrofurantoin Allergy Verified 02/20/24 14:01 Assessment and Plan *Assessment and plan (1) T wave inversion on electrocardiogram: Status: Acute Category: Medical Code(s): R94.31 - Abnormal electrocardiogram [ECG] [EKG] (2) Acute UTI: Status: Acute Category: Medical Code(s): N39.0 - Urinary tract infection, site not specified (3) Near syncope: Status: Acute Category: Medical Code(s): R55 - Syncope and collapse (4) Abnormal ECG: Status: Acute Category: Medical Code(s): R94.31 - Abnormal electrocardiogram [ECG] [EKG] (5) Prerenal azotemia: Status: Acute Category: Medical Code(s): R79.89 - Other specified abnormal findings of blood chemistry (6) Weight loss: Status: Acute Category: Medical Code(s): R63.4 - Abnormal weight loss (7) Colitis: Status: Acute Category: Medical Code(s): K52.9 - Noninfective gastroenteritis and colitis, unspecified Plan 1. Mildly elevated troponin with abnormal EKG (ST depression with T wave inversion in the inferolateral leads on admission EKG, improved on EKG this a.m.) -Second troponin mildly elevated at 0.05, third troponin pending... Likely related to stress from UTI colitis -Old EKGs reviewed with mild ST segment depression noted -Preliminary echo shows preserved ejection fraction -Recommend low-dose aspirin and increase metoprolol to 25 mg BID 2. UTI -Ceftriaxone 3. Weight loss with pre-renal azotemia -encourage eating and continue fluids 4. Mild anemia 5. Hypokalemia -replacement ordered 6. Near syncope felt due to abdominal pain/vagal stimulation in conjunction with decreased appetite and wt loss Third troponin pending but if official echo shows EF normal then recommend no further workup at this time until infection cleared. Increase metoprolol to 25 mg twice daily Add low-dose aspirin 81 mg daily
[2024-03-21] MEDS: POTASSIUM CHLORIDE 20MEQ/15ML UDC 40 MEQ PO (10:46)
[2024-03-21] MEDS: 0.9 % SODIUM CHLORIDE 1000ML 500 ML IV (10:48)
--- NOTE | 2024-03-21 10:57 | SW/DCPLANNER ---
Addendum entered by Barbie Dykes 03/24/24 12:12: Per patient's request I have faxed patient information to [facility] for meal services. Original Note: Per PT evaluation patient has no needs at time of discharge. Patient will discharge home later this afternoon pending ECHO.
--- NOTE | 2024-03-21 11:10 | PC.NURSE ---
this RN ambulated patient to bathroom. pt had small bowel movement with obvious noted blood in stool. was notified. repeat H&H ordered for later in shift. no external hemorrhoids noted. pt denies having previous blood in stools. call light within reach.
--- NOTE | 2024-03-21 11:32 | PC.NURSE ---
SRNA informed this RN of high BP for routine VS. Bp was 193/68 per SRNA. made aware. one time dose of 25mg metoprolol orderd. will recheck BP after dose given. call light within reach.
[2024-03-21] MEDS: METOPROLOL TARTRATE 50MG TABLET 25 MG PO (11:38)
[2024-03-21 11:45] LABS: Hematocrit 32.2 % (37.0-47.0); Hemoglobin 10.3 g/dL (12.2-16.2)
[2024-03-21 12:01] LABS: Troponin I 0.05 ng/ml (0.00-0.034)
--- NOTE | 2024-03-21 14:00 | PC.NURSE ---
BP rechecked and current BP 141/55. no new orders at this time.
--- NOTE | 2024-03-21 15:28 | PC.NURSE ---
pt has had no complaints this shift and has remained on room air and alert and oriented x4. pt blood pressures have been elevated this shift. (MD aware). MD previously ordered additional bp medications that decreased pt blood pressure. ( see previous note). pt has been ambulating to bathroom x1 assist w/ walker. pt did have some obvious blood noted in stool earlier. MD is also aware of this. H&H that was ordered earlier in shift did show slight decrease from admission from 11.8 to 10.3 and 35.7 to 32.2. pt did state that she does have a hx of anemia, but never noticed blood in her stool. no new orders at this time. call light within reach.
--- NOTE | 2024-03-21 18:37 | P.PN_ITS ---
Subjective *Date: 03/30/24 *Time: 21:44 Interval history: Patient doing well, did endorse BRBPR today. Vitals and HGb stable. Will monitor overnight. Exam Data for Last 24 hours Vital signs and Labs for Last 24 Hours: Temp Pulse Resp BP Pulse Ox O2 Del Method 97.9 F 70 20 156/74 H 98 Room Air 03/21/24 15:55 03/21/24 16:00 03/21/24 15:55 03/21/24 15:55 03/21/24 15:55 03/21/24 18:36 Laboratory Results - last 24 hr 03/21/24 00:05: WBC 16.3 H, RBC 3.86 L, Hgb 11.8 L, Hct 35.7 L, MCV 92.3, MCH 30.4, MCHC 33.0, RDW 16.3, Plt Count 392, MPV 7.0 L, Neut % (Auto) 87.0 H, Lymph % (Auto) 7.3 L, [place] % (Auto) 5.3, Eos % (Auto) 0.3, Baso % (Auto) 0.2, Neut # (Auto) 14.2 H, Lymph # (Auto) 1.2, [place] # (Auto) 0.9, Eos # (Auto) 0.1, Baso # (Auto) 0.0, Total Counted 100, Neutrophils % (Manual) 87 H, Lymphocytes % (Manual) 9 L, Monocytes % (Manual) 3, Basophils % (Manual) 1.0, Platelet Estimate Normal, RBC Morphology Normal, PT 10.8, INR 0.96, Sodium 138, Potassium 3.6, Chloride 103, Carbon Dioxide 30, Anion Gap 8.6, BUN 20 H, Creatinine 0.60, Estimated Creat Clear 26, Estimated GFR 95, Est GFR ( Amer) 114, Glucose 109 H, Calcium 9.4, Total Bilirubin 0.4, AST 47 H, ALT 30, Alkaline Phosphatase 105, Troponin I < 0.01, Total Protein 7.5, Albumin 4.2, Globulin 3.3 H, Albumin/Globulin Ratio 1.3, Lipase 267, HIV 1&2 Antibody Rapid Nonreactive 03/21/24 00:50: Urine Color Yellow, Urine Appearance Clear, Urine pH 6.0, Ur Specific [place] 1.020, Urine Protein Negative, Urine Glucose (UA) Negative, Urine Ketones Negative, Urine Blood Negative, Urine Nitrate Positive A, Urine Bilirubin Negative, Urine Urobilinogen 0.2, Ur Leukocyte Esterase 1+ A, Urine RBC None, Urine WBC 10-20, Ur Squamous Epith Cells 5-10, Urine Bacteria 3+ 03/21/24 01:20: Lactate 0.8, SARS-CoV-2 (PCR) Not detected, Influenza A Untype (PCR) Not detected, Influenza Type B (PCR) Not detected 03/21/24 03:15: Troponin I 0.01 03/21/24 06:00: WBC 12.3 H, RBC 3.66 L, Hgb 10.8 L, Hct 33.2 L, MCV 90.8, MCH 29.6, MCHC 32.6, RDW 16.3, Plt Count 371, MPV 7.3 L, Neut % (Auto) 79.3, Lymph % (Auto) 14.4, [place] % (Auto) 5.8, Eos % (Auto) 0.1, Baso % (Auto) 0.4, Neut # (Auto) 9.8 H, Lymph # (Auto) 1.8, [place] # (Auto) 0.7, Eos # (Auto) 0.0, Baso # (Auto) 0.1, Sodium 139, Potassium 3.2 L, Chloride 107, Carbon Dioxide 28, Anion Gap 7.2, BUN 11 D, Creatinine 0.50 L, Estimated Creat Clear 24, Estimated GFR 117, Est GFR ( Amer) 141 D, Glucose 112 H, Calcium 8.9, Magnesium 2.0, Total Bilirubin 0.4, AST 35 D, ALT 25, Alkaline Phosphatase 107, Troponin I 0.05 H, Total Protein 6.6, Albumin 3.7 D, Globulin 2.9, Albumin/Globulin Ratio 1.3 03/21/24 11:30: Hgb 10.3 L, Hct 32.2 L, Troponin I 0.05 H I & O for Last 24 hours: Intake & Output 03/18/24 03/19/24 03/20/24 03/21/24 23:59 23:59 23:59 23:59 Intake Total 2099 Output Total 0 / 0 Balance 2099 Weight 41.277 kg 37.648 kg Constitutional Constitutional: no acute distress *Routine HEENT Exam Head: Present normocephalic Eye: Present EOMI and PERRL ENT: Present mucous membranes moist *Routine Neck Exam Neck: Present supple; Absent lymphadenopathy *Routine Respiratory Exam Respiratory: Present CTA bilaterally *Routine Cardiovascular Exam Cardiovascular: Present RRR *Routine Abdominal Exam Abdominal: Present soft and normoactive bowel sounds; Absent tenderness *Routine Extremities Exam Extremities: Absent cyanosis, clubbing or edema *Routine Skin Exam Skin: Present warm; Absent rash *Routine Neurological Exam Neurological: Present alert and oriented X3 Assessment and Plan *Assessment and plan (1) T wave inversion on electrocardiogram: Status: Resolved Category: Medical Code(s): R94.31 - Abnormal electrocardiogram [ECG] [EKG] (2) Colitis: Status: Acute Category: Medical Code(s): K52.9 - Noninfective gastroenteritis and colitis, unspecified (3) Acute UTI: Status: Resolved Category: Medical Code(s): N39.0 - Urinary tract infection, site not specified Plan Liz Méndez is a 89-year-old female with a medical history significant for hypertension, hypothyroidism, GERD, bilateral hip fractures presents with presyncope and abdominal pain. Found to have UTI and colitis, but hospital course complicated by bright red blood per rectum. #UTI #Colitis #Bright red blood per rectum ? Started Zosyn, discontinued ceftriaxone in the setting of colitis. ? Follow-up urine, blood cultures. ? Patient had a episode of bright red blood per rectum, CTA abdomen/pelvis does reveal diffuse colitis. Benign abdominal exam. ? Hemoglobin stable at 10.3. Vital signs stable. Continue to monitor. #Elevated troponins #NSTEMI type II ? Troponins plateaued at 0.05. EKG initially showed T wave inversions, but resolved with repeat EKG. ? Likely in setting of demand ischemia from dehydration. #Lightheadedness ? Resolved with IV and oral fluid resuscitation. #Hypertension ? Continue home lisinopril 20 mg #Hypothyroidism ? Continue home levothyroxine 50 mcg. Full code DVT prophylaxis: SCDs
[2024-03-21] MEDS: PIPERCILLIN/TAZO 3.375 GM in 0.9 % SODIUM CHLORIDE 50 ML IV (19:16)
[2024-03-21] MEDS: METOPROLOL SUCCINATE XL 25MG TABLET 25 MG PO (20:11)
[2024-03-21] MEDS: PANTOPRAZOLE 40MG TABLET 40 MG PO (20:11)
[2024-03-22] VITALS: BP 146/72; PULSE 60; PULSE 68; RESP 16; TEMP 36.8; O2SAT 97
[2024-03-22] MEDS: PIPERCILLIN/TAZO 3.375 GM in 0.9 % SODIUM CHLORIDE 50 ML IV (03:39)
[2024-03-22 04:00] VITALS: BP 173/84; PULSE 70; PULSE 71; RESP 16; TEMP 36.7; O2SAT 98; BMI 16.5
--- NOTE | 2024-03-22 05:59 | PC.NURSE ---
Pt A&OX4 and has tolerated room air. Lung sounds clear and bowel sounds active. She has ambulated to the bathroom with x1 assist with walker. Pt did have one BM this shift with blood noted in stool. Currently asleep with call light within reach.
[2024-03-22] MEDS: LEVOTHYROXINE 50MCG (0.05MG) TAB 50 MCG PO (06:40)
[2024-03-22 07:46] VITALS: BP 143/54; PULSE 70; RESP 18; TEMP 36.4; O2SAT 97
[2024-03-22 07:53] LABS: Basophils # 0.1 K/mm3 (0-0.2); Basophils % 0.5 % (0.1-2.0); Eosinophils # 0.1 K/mm3 (0.0-0.4); Eosinophils % 0.8 % (0.1-12.0); Hematocrit 32.8 % (37.0-47.0); Hemoglobin 10.9 g/dL (12.2-16.2); Lymphocytes # 1.5 K/mm3 (0.7-4.5); Lymphocytes % 13.1 % (10-50); Mean Corpuscular HGB Conc 33.4 g/dL (31.8-35.4); Mean Corpuscular Hemoglobin 30.1 pg (27.0-31.2); Mean Corpuscular Volume 90.2 fl (81-99); Mean Platelet Volume 7.8 fl (7.4-10.4); Monocytes # 0.8 K/mm3 (0.1-1.0); Monocytes % 6.6 % (1.7-9.3); Platelet Count 364 K/mm3 (142-424); Red Blood Count 3.63 M/mm3 (4.20-5.40); Red Cell Distribution Width 16.4 % (11.5-17.5); White Blood Count 11.4 K/mm3 (4.8-10.8)
[2024-03-22 08:00] VITALS: PULSE 70
[2024-03-22 08:12] LABS: Alanine Aminotransferase 37 U/L (12-78); Albumin/Globulin Ratio 1.4 (1.1-1.8); Alkaline Phosphatase 91 U/L (38-126); Anion Gap 10.4 mEq/L (5-15); Aspartate Amino Transferase 49 U/L (14-36); Bilirubin,Total 0.8 mg/dl (0.2-1.3); Blood Urea Nitrogen 6 mg/dl (7-17); Calcium 8.8 mg/dl (8.4-10.2); Carbon Dioxide 26 mmol/L (22.0-30.0); Chloride 101 mmol/L (98-107); Creatinine Clearance Estimated 24 mL/min (50-200); Estimated Glomerular Filt Rate 95 ml/min (>60); GFR (African American) 114 ML/MIN (>60); Globulin 2.9 g/dL (1.3-3.2); Glucose 140 mg/dl (74-100); Potassium 3.4 mmoL/L (3.5-5.1); Sodium 134 mmol/L (136-145); Total Protein,Serum 6.9 g/dl (6.3-8.2)
[2024-03-22 08:42] LABS: Thyroid Stimulating Hormone 0.78 uIU/mL (0.465-4.68)
[2024-03-22 09:01] LABS: HCV Ab Non Reactive (Non Reactive)
[2024-03-22] MEDS: TIMOLOL 0.5% OPTH SOLN 5ML OP (10:11)
[2024-03-22] MEDS: PIPERACILLIN/TAZO 2.25 GM in 0.9 % SODIUM CHLORIDE 50 ML IV (10:35)
[2024-03-22] MEDS: LISINOPRIL 20MG TABLET 20 MG PO (10:35)
[2024-03-22] MEDS: METOPROLOL SUCCINATE XL 25MG TABLET 25 MG PO (10:35)
--- NOTE | 2024-03-22 11:08 | EXP.DC.SUM ---
General Admission date:: 03/21/24 HPI HPI HPI: This 89-year-old female who was at home and felt like she was going to pass out, needed to have help from her 90-year-old to come to the kitchen. They then came to the emergency room because she was also having abdominal pain.. While in the emergency room the abdominal pain has subsided. Patient was worked up for the abdominal pain and CT scan does show diffuse colitis., Also urinary tract infection was found with a white count of 16.3. Mild preazotemia. After speaking with the emergency room provider. Do agree with this lady's frailty is a being 89, almost having a syncopal event having a urinary tract infection with increased WBCs, was having abdominal pain but now scans showing a fair amount of colitis. But pain has improved. He does need to be admitted to have initial treatment of Best tract infection completed to ensure that her orthostatics are good have her evaluated by physical therapy make sure that she has good balance before releasing her home. Patient did note that she had an eye appointment tomorrow because she wanted to ask about floaters that she had received 4 injections in each eye over a period of time. Patient's weight has changed from August 2021 was 100 pounds to August 2022 was 96 pounds in November 2023 was 91 pound on this admission in weight is 83 pound. The patient does look underweight and has no obvious fat reserves left. Very little muscle mass is noted. Hospital Course Hospital Course Hospital Course: Liz Méndez is a 89-year-old female with a medical history significant for hypertension, hypothyroidism, GERD, bilateral hip fractures presents with presyncope and abdominal pain. Found to have UTI and colitis, but hospital course complicated by 2 episodes of bright red blood per rectum. #UTI #Colitis ? Abdominal pain improved with IV antibiotics including ceftriaxone and Zosyn. ? Urine culture growing gram-negative rods, pending speciation and sensitivities at this time. However, patient improved with IV ceftriaxone in the first day. ? No episodes of diarrhea, normal abdominal exam. ? Discharged with cefdinir for 3 more days. Will reach out to patient if sensitivities suggest otherwise. #Bright red blood per rectum ? Patient had 2 episodes of nonpainful BRBPR. Vital signs were stable. ? Hemoglobin remained stable at 10.3-10.9. No evidence of external hemorrhoids. ? May be related to colitis versus internal hemorrhoids. CTA abdomen did not reveal signs of bleeding. ? Will follow-up with PCP for further evaluation management. Offered GI referral, however patient wanted to be seen by PCP first. #Frailty ? PT/OT consulted, recommended continuing ambulation with rolling walker with no further rehab needs. ? Patient at this time feels like she could use more rehab, so referral was made for home health with PT/OT. #Elevated troponins #NSTEMI type II ? Troponins plateaued at 0.05. EKG initially showed T wave inversions, but resolved with repeat EKG. ? Likely in setting of demand ischemia from dehydration. ? Cardiology consulted, recommended starting aspirin 81 mg and increasing metoprolol succinate 25 mg to twice daily dosing. ? Will follow-up with cardiology within 1 week. #Lightheadedness ? Resolved with IV and oral fluid resuscitation. #Hypertension ? Continue home lisinopril 20 mg #Hypothyroidism ? Continue home levothyroxine 50 mcg. Exam Data for Last 24 hours Vital signs and Labs for Last 24 Hours: Temp Pulse Resp BP Pulse Ox O2 Del Method 97.5 F L 70 18 143/54 H 97 Room Air 03/22/24 07:46 03/22/24 08:00 03/22/24 07:46 03/22/24 07:46 03/22/24 07:46 03/22/24 07:46 Laboratory Results - last 24 hr 03/21/24 00:05: Hepatitis C Antibody Non reactive 03/21/24 00:50: Urine Color Yellow, Urine Appearance Clear, Urine pH 6.0, Ur Specific [place] 1.020, Urine Protein Negative, Urine Glucose (UA) Negative, Urine Ketones Negative, Urine Blood Negative, Urine Nitrate Positive A, Urine Bilirubin Negative, Urine Urobilinogen 0.2, Ur Leukocyte Esterase 1+ A, Urine RBC None, Urine WBC 10-20, Ur Squamous Epith Cells 5-10, Urine Bacteria 3+ 03/21/24 11:30: Hgb 10.3 L, Hct 32.2 L, Troponin I 0.05 H 03/22/24 07:35: WBC 11.4 H, RBC 3.63 L, Hgb 10.9 L, Hct 32.8 L, MCV 90.2, MCH 30.1, MCHC 33.4, RDW 16.4, Plt Count 364, MPV 7.8, Neut % (Auto) 79.0, Lymph % (Auto) 13.1, [place] % (Auto) 6.6, Eos % (Auto) 0.8, Baso % (Auto) 0.5, Neut # (Auto) 9.0 H, Lymph # (Auto) 1.5, [place] # (Auto) 0.8, Eos # (Auto) 0.1, Baso # (Auto) 0.1, Sodium 134 L, Potassium 3.4 L, Chloride 101, Carbon Dioxide 26, Anion Gap 10.4, BUN 6 L D, Creatinine 0.60, Estimated Creat Clear 24, Estimated GFR 95, Est GFR ( Amer) 114, Glucose 140 H, Calcium 8.8, Total Bilirubin 0.8, AST 49 H D, ALT 37 D, Alkaline Phosphatase 91, Total Protein 6.9, Albumin 4.0, Globulin 2.9, Albumin/Globulin Ratio 1.4, TSH 0.78, Free T4 1.60 I & O for Last 24 hours: Intake & Output 03/19/24 03/20/24 03/21/24 03/22/24 23:59 23:59 23:59 23:59 Intake Total 2370 / 2620 750 / 750 Output Total 0 / 0 0 / 0 Balance 2370 / 2620 750 / 750 Weight 41.277 kg 37.648 kg 38.283 kg Microbiology Reports for the Last 24 Hours: Microbiology 03/21/24 00:50 Urine,Clean Catch Urine Culture - Preliminary Gram Negative Rods 03/21/24 00:50 Blood Blood Culture - Preliminary NO GROWTH AFTER 24 HOURS 03/21/24 00:50 Blood Blood Culture - Preliminary NO GROWTH AFTER 24 HOURS Constitutional Constitutional: no acute distress Comments: Frail appearing. *Routine HEENT Exam Head: Present normocephalic Eye: Present EOMI and PERRL ENT: Present mucous membranes moist *Routine Neck Exam Neck: Present supple; Absent lymphadenopathy *Routine Respiratory Exam Respiratory: Present CTA bilaterally *Routine Cardiovascular Exam Cardiovascular: Present RRR *Routine Abdominal Exam Abdominal: Present soft and normoactive bowel sounds; Absent tenderness *Routine Extremities Exam Extremities: Absent cyanosis, clubbing or edema *Routine Skin Exam Skin: Present warm; Absent rash *Routine Neurological Exam Neurological: Present alert and oriented X3 Results Data Completed and Pending Labs on day of discharge: Labs from last 24 hours 03/22/24 03/21/24 03/21/24 07:35 11:30 00:50 WBC 11.4 H RBC 3.63 L Hgb 10.9 L 10.3 L Hct 32.8 L 32.2 L MCV 90.2 MCH 30.1 MCHC 33.4 RDW 16.4 Plt Count 364 MPV 7.8 Neut % (Auto) 79.0 Lymph % (Auto) 13.1 [place] % (Auto) 6.6 Eos % (Auto) 0.8 Baso % (Auto) 0.5 Neut # (Auto) 9.0 H Lymph # (Auto) 1.5 [place] # (Auto) 0.8 Eos # (Auto) 0.1 Baso # (Auto) 0.1 Sodium 134 L Potassium 3.4 L Chloride 101 Carbon Dioxide 26 Anion Gap 10.4 BUN 6 L D Creatinine 0.60 Estimated Creat Clear 24 Estimated GFR 95 Est GFR ( Amer) 114 Glucose 140 H Calcium 8.8 Total Bilirubin 0.8 AST 49 H D ALT 37 D Alkaline Phosphatase 91 Troponin I 0.05 H Total Protein 6.9 Albumin 4.0 Globulin 2.9 Albumin/Globulin Ratio 1.4 TSH 0.78 Free T4 1.60 Urine Color Yellow Urine Appearance Clear Urine pH 6.0 Ur Specific [place] 1.020 Urine Protein Negative Urine Glucose (UA) Negative Urine Ketones Negative Urine Blood Negative Urine Nitrate Positive A Urine Bilirubin Negative Urine Urobilinogen 0.2 Ur Leukocyte Esterase 1+ A Urine RBC None Urine WBC 10-20 Ur Squamous Epith Cells 5-10 Urine Bacteria 3+ Hepatitis C Antibody 03/21/24 00:05 WBC RBC Hgb Hct MCV MCH MCHC RDW Plt Count MPV Neut % (Auto) Lymph % (Auto) [place] % (Auto) Eos % (Auto) Baso % (Auto) Neut # (Auto) Lymph # (Auto) [place] # (Auto) Eos # (Auto) Baso # (Auto) Sodium Potassium Chloride Carbon Dioxide Anion Gap BUN Creatinine Estimated Creat Clear Estimated GFR Est GFR ( Amer) Glucose Calcium Total Bilirubin AST ALT Alkaline Phosphatase Troponin I Total Protein Albumin Globulin Albumin/Globulin Ratio TSH Free T4 Urine Color Urine Appearance Urine pH Ur Specific [place] Urine Protein Urine Glucose (UA) Urine Ketones Urine Blood Urine Nitrate Urine Bilirubin Urine Urobilinogen Ur Leukocyte Esterase Urine RBC Urine WBC Ur Squamous Epith Cells Urine Bacteria Hepatitis C Antibody Non reactive Preliminary micro results at discharge 03/21/24 00:50 Urine Culture - Preliminary Urine,Clean Catch Gram Negative Rods 03/21/24 00:50 Blood Culture - Preliminary Blood NO GROWTH AFTER 24 HOURS 03/21/24 00:50 Blood Culture - Preliminary Blood NO GROWTH AFTER 24 HOURS DS: Diagnosis Discharge Diagnosis (1) T wave inversion on electrocardiogram: Status: Acute Code(s): R94.31 - Abnormal electrocardiogram [ECG] [EKG] (2) Colitis: Status: Acute Code(s): K52.9 - Noninfective gastroenteritis and colitis, unspecified (3) Acute UTI: Status: Acute Code(s): N39.0 - Urinary tract infection, site not specified Meds Home Medications and Allergies Home Medications ?Medication ?Instructions ?Recorded ?Confirmed ?Type levothyroxine 50 mcg tablet 50 mcg PO DAILY 06/25/19 03/21/24 History potassium chloride 10 mEq 10 meq PO BID 06/25/19 03/21/24 History tablet,extended release(part/cryst) lisinopril 20 mg tablet 20 mg PO DAILY 11/27/20 03/21/24 History meclizine 12.5 mg tablet 12.5 mg PO TIDP PRN Dizziness 02/24/21 03/21/24 History mirabegron 50 mg tablet,extended 50 mg PO DAILY 02/24/21 03/21/24 History release 24 hr (Myrbetriq) rosuvastatin 5 mg tablet 5 mg PO DAILY 02/24/21 03/21/24 History docusate sodium 100 mg capsule 100 mg PO BIDP PRN Constipation 05/16/21 03/21/24 History dorzolamide 22.3 mg-timolol 6.8 1 drp ophthalmic (eye) BID 03/21/24 03/21/24 History mg/mL eye drops omeprazole 20 mg capsule,delayed 20 mg PO HS 03/21/24 03/21/24 History release aspirin 81 mg tablet,delayed 81 mg PO DAILY #30 tabs 03/22/24 Rx release cefdinir 300 mg capsule 300 mg PO BID 3 days #6 caps 03/22/24 Rx metoprolol succinate 25 mg 25 mg PO BID 30 days #60 tabs 03/22/24 Rx tablet,extended release 24 hr New Prescriptions to Start Prescriptions: Shlomo Cannon cefdinir Shlomo Engel metoprolol succinate Shlomo Engel Allergies Allergy/AdvReac Type Severity Reaction Status Date / Time nitrofurantoin Allergy Verified 02/20/24 14:01 Discharge Plan Disposition Patient Disposition: Home, Self-Care Condition: Fair Follow up Plan Follow up with: Macario Brennan PA [Physician [employer] [facility] [employer]] - 04/14/24 9:45 am Cassandra Lara [Referring] - 03/27/24 11:15 am Prescriptions/Medication Reconciliation: New cefdinir 300 mg capsule 300 mg PO BID 3 Days Qty: 6 0RF aspirin 81 mg tablet,delayed release (DR/EC) 81 mg PO DAILY Qty: 30 0RF Continued meclizine 12.5 mg tablet 12.5 mg PO TIDP PRN (Reason: Dizziness) Myrbetriq 50 mg tablet extended release 24 hr 50 mg PO DAILY rosuvastatin 5 mg tablet 5 mg PO DAILY docusate sodium 100 mg capsule 100 mg PO BIDP PRN (Reason: Constipation) Patient Comments: TAKE 1 CAPSULE BY MOUTH TWICE DAILY levothyroxine 50 MCG tablet 50 mcg PO DAILY potassium chloride 10 MEQ tablet,ER particles/crystals 10 meq PO BID dorzolamide-timolol 22.3-6.8 mg/mL drops 1 drp ophthalmic (eye) BID Patient Comments: INSTILL 1 DROP IN BOTH EYES TWICE DAILY omeprazole 20 mg capsule,delayed release(DR/EC) 20 mg PO HS Patient Comments: TAKE 1 CAPSULE BY MOUTH EVERY DAY AT BEDTIME lisinopril 20 MG tablet 20 mg PO DAILY Changed metoprolol succinate 25 mg tablet extended release 24 hr 25 mg PO BID 30 Days Qty: 60 0RF Problem Reconciliation Problems Reviewed?: Yes Patient Discharge Instructions Patient Instructions: DI for Urinary Tract Infection (UTI), DI for Acute Abdominal Pain Print Language: Icelandic Providers Primary Care Provider: Provider,Referral Admit Provider: Shlomo Engel Attending Provider: Shlomo Engel
--- NOTE | 2024-03-24 13:03 | SW/DCPLANNER ---
Spoke with patient on the phone. Patient stated she is doing well and that she was able to get her medicine filled and she has no questions or concerns. Patient did accept home health and amedysis is going to go in. Barbie Dykes outreach and education social worker called to see if meals on wheels could go and help the patient and with bringing in meals for them. Uriel Borges
== END 2024-03-22 14:16 | disposition home health service (06) ==
LOC: ER 22:51 → 2ND 03-21 02:00
PROVIDERS: Emergency Medicine; Nurse Practitioner Family; Admitting Provider Student in an Organized Health Care Education/Training Program; Emergency Provider Student in an Organized Health Care Education/Training Program; Visit Provider Student in an Organized Health Care Education/Training Program
DX: N39.0 Urinary tract infection, site not specified (principal); E86.0 Dehydration; I21.A1 Myocardial infarction type 2; R94.31 Abnormal electrocardiogram [ECG] [EKG]; K52.9 Noninfective gastroenteritis and colitis, unspecified; R55 Syncope and collapse; R63.4 Abnormal weight loss; R62.7 Adult failure to thrive; R79.89 Other specified abnormal findings of blood chemistry; Z68.1 Body mass index [BMI] 19.9 or less, adult; Z79.899 Other long term (current) drug therapy; R42 Dizziness and giddiness; D50.8 Other iron deficiency anemias
CPT/HCPCS: 36415; 71275; 74174; 80053; 81001; 83605; 83690; 83735; 84439; 84443; 84484; 85007; 85014; 85018; 85025; 85027; 85610; 86803; 87040; 87086; 87088; 87186; 87389; 87636; 93005; 93306; 97162; 97165; 99285; G0378; J0696; J1650; J2543; J7030; J7120; Q9967

== ENCOUNTER 2024-08-19 12:50 | Outpatient (RCR) | payer MEDICARE, SELFPAY | END 2024-08-19 23:59 | disposition home or self-care (01) | LOC: PT 12:50 | PROVIDERS: Visit Provider Family Medicine | DX: Z13.89 Encounter for screening for other disorder (principal); Z91.81 History of falling | CPT/HCPCS: 97163 ==